=== PATIENT | female | born 1955 | race African-American/Black ===

== ENCOUNTER 2016-12-30 07:20 | Inpatient (IN) | payer MEDICAID ==
[~2016-12-30] VITALS: Ht 172.7 cm; Wt 127.0 kg
[~2016-12-30 07:20] MED LIST: ALBU18; BRIM0.159 OP; DICL0.1S20; DORZ2SOL; Divalproex Sodium PO; KEP500T PO; LATA0.0015 OP; LEVA3NEB9 NEB; METH500T6 PO; OMEP20TA44 PO; PHE100C PO
[2016-12-30 08:29] LABS: Basophils # (auto) 0 uL; Basophils % (auto) 0.5 % (0.0-2.0); CONDITION Y; Eosinophils # (auto) 0.1 uL; Eosinophils % (auto) 1.3 % (0.0-7.0); Hematocrit 43.1 % (36.0-46.0); Hemoglobin 14.5 g/dL (12.2-16.2); Lymphocytes % (auto) 33.7 % (10.0-50.0); Mean Corpuscular Hgb Conc. 33.5 g/dL (32.0-36.0); Mean Corpuscular Volume 92.6 fL (80.0-100.0); Mean Platelet Volume 8.6 fL (7.4-10.4); Monocytes # (auto) 0.5 uL; Monocytes % (auto) 5.9 % (0.0-12.0); Neutrophils # (auto) 5.3 uL; Neutrophils % (auto) 58.6 % (37.0-80.0); Platelet Count (auto) 254 10^3/uL (140-450); Red Cell Distribution Width 14.1 % (11.6-16.0)
[2016-12-30] MEDS ORDERED: AMMONIA 0.33 ML INHALANT IN ONE (08:32)
[2016-12-30 08:51] LABS: Albumin 3.8 g/dL (3.4-5.0); Anion Gap 8 (5-15); Aspartate Aminotransferase 11 U/L (15-37); BUN/Creatinine Ratio 19.5; Blood Urea Nitrogen 17 mg/dL (7-18); Calcium 8.8 mg/dL (8.5-10.1); Carbon Dioxide 24 mmol/L (21-32); Chloride 107 mmol/L (98-107); GFR African American 85 mL/min; GFR Non-African American 70 mL/min; Glucose 98 mg/dL (74-106); Potassium 3.9 mmol/L (3.5-5.1); Sodium 139 mmol/L (136-145)
[2016-12-30 08:56] LABS: Alkaline Phosphatase 127 U/L (45-117); Bilirubin, Total 0.9 mg/dL (0.2-1.0); Total Protein 8.3 g/dL (6.4-8.2)
[2016-12-30 13:06] LABS: Urine Bilirubin Negative (Negative); Urine Blood Negative /uL (Negative); Urine Color Yellow (Yellow); Urine Glucose Normal (Normal); Urine Ketone Negative (Negative); Urine Mucus FEW (None Seen); Urine Nitrite Negative (Negative); Urine RBC <1 /hpf (0 - 4); Urine Squamous Epithelial Cell FEW /hpf (<5); Urine Urobilinogen Normal (Negative); Urine pH 5.5 (5.0-8.0)
[2016-12-30] MEDS ORDERED: MORPHINE SULFATE 4 MG/ML SYRG IV ONE (13:15)
[2016-12-30] MEDS ORDERED: ONDANSETRON HCL 4 MG/2 ML VIAL IV ONE (13:15)
[2016-12-30] MEDS ORDERED: ASPirin 81 mg TAB PO ONE ×2 (13:15→13:45)
[2016-12-30] MEDS ORDERED: SODIUM CHLORIDE 0.9% 1,000 ML IV ONE (13:15)
[2016-12-30] MEDS ORDERED: MORPHINE SULF INJ 2 MG/ML SYRINGE 1ML IV PRN (13:45)
[2016-12-30] MEDS ORDERED: LACTULOSE 20Gm/30ML SOLN PO PRN (13:45)
[2016-12-30] MEDS ORDERED: ALBUTEROL SULF 2.5 MG/0.5ML(0.5%) NEB SOLN NEB PRN (13:45)
[2016-12-30] MEDS ORDERED: NITROGLYCERIN 0.4 MG SL TAB SL PRN (13:45)
[2016-12-30] MEDS ORDERED: ENOXAPARIN SOD 40 MG/0.4 ML SYRINGE SC ONE (13:45)
[2016-12-30 14:37] LABS: Cholesterol 206 mg/dL (< 200); HDL Cholesterol 53 mg/dL (40-59); LDL Cholesterol 131 mg/dL (< 100); Triglycerides 103 mg/dL (< 150)
[2016-12-30 14:44] LABS: Temperature: 24.6 C (20.0-25.0)
[2016-12-30] MEDS ORDERED: DEXTROSE (50%) 50ML SYRG IV PRN (14:45)
[2016-12-30] MEDS ORDERED: TEMAZEPAM 15 MG CAP PO PRN (14:45)
[2016-12-30] MEDS ORDERED: ACETAMINOPHEN 500 MG TAB PO PRN (14:45)
[2016-12-30] MEDS: LORazepam 2MG/ML-1ML VIAL IV PRN (14:56)
[2016-12-30] MEDS ORDERED: HYDROmorphone HCL 2 MG/ML VL IV ONE (15:00)
[2016-12-30] MEDS: InsuLIN REG 1unit/0.01ml Soln (100units/ml) SC SCH ×2 (16:34→21:57)
[2016-12-30] MEDS: ACCU-CHEK COMFORT CURVE STRIP VI SCH ×2 (16:34→21:56)
[2016-12-30] MEDS: IPRATROPIUM BROM 0.5 MG/2.5ML INH SOL NEB SCH (18:35)
[2016-12-30] MEDS: ALBUTEROL SULF 2.5 MG/0.5ML(0.5%) NEB SOLN NEB SCH (18:35)
[2016-12-30] MEDS ORDERED: PHENYTOIN IV DILANTIN 1,000 MG in SODIUM CHL 0.9% 250 ML IV ONE (20:00)
[2016-12-30] MEDS: HYDROmorphone HCL 2 MG/ML VL IV PRN (20:21)
[2016-12-30] MEDS: PROMETHAZINE HCL 25 MG/ML 1ML IV PRN (20:22)
[2016-12-30 20:47] VITALS: BP 137/92
[2016-12-30 22:00] VITALS: BP 135/77
[2016-12-30] MEDS ORDERED: PHENYTOIN SODIUM 100 MG CAP PO SCH (22:00)
[2016-12-30] MEDS ORDERED: ATORVASTATIN 20 MG TAB PO SCH (22:00)
[2016-12-30] MEDS: LEVETIRACETAM 500 MG TAB PO SCH (22:19)
[2016-12-30] MEDS: PHENYTOIN SODIUM 100 MG CAP PO SCH (22:19)
[2016-12-30] MEDS: ATORVASTATIN 20 MG TAB PO SCH (22:19)
[2016-12-31] VITALS (8 sets, daily range): BP systolic 95–127; BP diastolic 53–74
[2016-12-31] MEDS: MORPHINE SULFATE 4 MG/ML SYRG IV PRN ×3 (02:31→22:17)
[2016-12-31] MEDS: ALBUTEROL SULF 2.5 MG/0.5ML(0.5%) NEB SOLN NEB SCH ×4 (02:42→19:15)
[2016-12-31] MEDS: ACCU-CHEK COMFORT CURVE STRIP VI SCH ×4 (06:50→21:54)
[2016-12-31] MEDS: InsuLIN REG 1unit/0.01ml Soln (100units/ml) SC SCH ×4 (06:50→21:58)
[2016-12-31] MEDS: IPRATROPIUM BROM 0.5 MG/2.5ML INH SOL NEB SCH ×4 (07:01→19:15)
[2016-12-31 07:13] LABS: Basophils # (auto) 0 uL; Basophils % (auto) 0.4 % (0.0-2.0); CONDITION Y; Eosinophils # (auto) 0.1 uL; Eosinophils % (auto) 1.6 % (0.0-7.0); Hematocrit 38.3 % (36.0-46.0); Hemoglobin 12.9 g/dL (12.2-16.2); Lymphocytes # (auto) 2.6 uL; Lymphocytes % (auto) 35.7 % (10.0-50.0); Mean Corpuscular Hemoglobin 31.2 pg (28.0-32.0); Mean Corpuscular Hgb Conc. 33.6 g/dL (32.0-36.0); Mean Corpuscular Volume 92.9 fL (80.0-100.0); Mean Platelet Volume 8.4 fL (7.4-10.4); Monocytes # (auto) 0.6 uL; Monocytes % (auto) 7.8 % (0.0-12.0); Neutrophils % (auto) 54.5 % (37.0-80.0); Platelet Count (auto) 236 10^3/uL (140-450); Red Cell Distribution Width 14.2 % (11.6-16.0); White Blood Cell 7.4 10^3/uL (4.4-10.8)
[2016-12-31 07:36] LABS: Albumin 3.2 g/dL (3.4-5.0); BUN/Creatinine Ratio 20.5; Bilirubin, Total 0.4 mg/dL (0.2-1.0); Calcium 8.6 mg/dL (8.5-10.1); Potassium 3.9 mmol/L (3.5-5.1); Total Protein 6.9 g/dL (6.4-8.2)
[2016-12-31] MEDS: HYDROmorphone HCL 2 MG/ML VL IV PRN (07:40)
[2016-12-31] MEDS: ENOXAPARIN SOD 40 MG/0.4 ML SYRINGE SC SCH (09:56)
[2016-12-31] MEDS: ASPirin 81 mg TAB PO SCH (09:56)
[2016-12-31] MEDS: PHENYTOIN SODIUM 100 MG CAP PO SCH ×2 (09:56→21:53)
[2016-12-31] MEDS: LEVETIRACETAM 500 MG TAB PO SCH ×2 (09:56→21:51)
[2016-12-31] MEDS: LORazepam 0.5 MG TAB PO PRN (09:57)
[2016-12-31] MEDS: LORazepam 2MG/ML-1ML VIAL IV PRN ×2 (11:03→14:36)
[2016-12-31] MEDS ORDERED: DIVA500T53 PO (13:30)
[2016-12-31] MEDS ORDERED: LORazepam 2MG/ML-1ML VIAL IV ONE (13:30)
[2016-12-31] MEDS ORDERED: GABA-497 PO (13:30)
[2016-12-31] MEDS ORDERED: HYDR-4663 PO (13:30)
[2016-12-31] MEDS: HYDROcodone-ACET 5/325MG TAB PO PRN (14:12)
[2016-12-31] MEDS: CITALOPRAM HYDROBR 20 MG TAB PO SCH (16:19)
[2016-12-31] MEDS: GABAPENTIN 300 MG CAP PO SCH (21:51)
[2016-12-31] MEDS: ATORVASTATIN 20 MG TAB PO SCH (21:52)
[2016-12-31] MEDS: PROMETHAZINE HCL 25 MG/ML 1ML IV PRN (22:32)
[2017-01-01] VITALS (7 sets, daily range): BP systolic 90–140; BP diastolic 44–82
[2017-01-01] MEDS: ALBUTEROL SULF 2.5 MG/0.5ML(0.5%) NEB SOLN NEB SCH ×4 (00:23→19:43)
[2017-01-01] MEDS: IPRATROPIUM BROM 0.5 MG/2.5ML INH SOL NEB SCH ×4 (00:23→19:43)
[2017-01-01] MEDS: LORazepam 2MG/ML-1ML VIAL IV PRN ×2 (06:30→15:38)
[2017-01-01] MEDS: InsuLIN REG 1unit/0.01ml Soln (100units/ml) SC SCH ×4 (07:00→21:38)
[2017-01-01] MEDS: ACCU-CHEK COMFORT CURVE STRIP VI SCH ×4 (07:24→21:29)
[2017-01-01] MEDS: MORPHINE SULFATE 4 MG/ML SYRG IV PRN ×2 (09:30→20:25)
[2017-01-01] MEDS: ASPirin 81 mg TAB PO SCH (09:34)
[2017-01-01] MEDS: LEVETIRACETAM 500 MG TAB PO SCH ×2 (09:35→21:28)
[2017-01-01] MEDS: GABAPENTIN 300 MG CAP PO SCH ×2 (09:35→21:28)
[2017-01-01] MEDS: ENOXAPARIN SOD 40 MG/0.4 ML SYRINGE SC SCH (09:35)
[2017-01-01] MEDS: PHENYTOIN SODIUM 100 MG CAP PO SCH ×2 (09:35→21:28)
[2017-01-01] MEDS: CITALOPRAM HYDROBR 20 MG TAB PO SCH (09:35)
[2017-01-01] MEDS: HYDROmorphone HCL 2 MG/ML VL IV PRN (12:23)
[2017-01-01] MEDS: methylPREDNISolone SOD SUCC 40 MG/ML VL IV SCH (21:28)
[2017-01-01] MEDS: ATORVASTATIN 20 MG TAB PO SCH (21:28)
[2017-01-02] MEDS: IPRATROPIUM BROM 0.5 MG/2.5ML INH SOL NEB SCH ×4 (01:03→19:18)
[2017-01-02] MEDS: ALBUTEROL SULF 2.5 MG/0.5ML(0.5%) NEB SOLN NEB SCH ×5 (01:03→19:18)
[2017-01-02] MEDS: MORPHINE SULFATE 4 MG/ML SYRG IV PRN ×2 (01:32→16:25)
[2017-01-02] MEDS: LORazepam 0.5 MG TAB PO PRN (03:41)
[2017-01-02] MEDS: HYDROmorphone HCL 2 MG/ML VL IV PRN ×2 (03:43→20:29)
[2017-01-02] MEDS: LORazepam 2MG/ML-1ML VIAL IV PRN ×2 (04:11→08:07)
[2017-01-02 05:28] VITALS: BP 131/66
[2017-01-02] MEDS: methylPREDNISolone SOD SUCC 40 MG/ML VL IV SCH ×3 (05:50→22:00)
[2017-01-02] MEDS: ACCU-CHEK COMFORT CURVE STRIP VI SCH ×4 (05:50→22:31)
[2017-01-02] MEDS: InsuLIN REG 1unit/0.01ml Soln (100units/ml) SC SCH ×4 (06:00→22:30)
[2017-01-02] MEDS: HYDROcodone-ACET 5/325MG TAB PO PRN (08:22)
[2017-01-02 09:00] VITALS: BP 134/64
[2017-01-02] MEDS: ENOXAPARIN SOD 40 MG/0.4 ML SYRINGE SC SCH (09:59)
[2017-01-02] MEDS: CITALOPRAM HYDROBR 20 MG TAB PO SCH (10:01)
[2017-01-02] MEDS: ASPirin 81 mg TAB PO SCH (10:01)
[2017-01-02] MEDS: GABAPENTIN 300 MG CAP PO SCH ×2 (10:01→22:19)
[2017-01-02] MEDS: LEVETIRACETAM 500 MG TAB PO SCH ×2 (10:04→22:19)
[2017-01-02] MEDS: PHENYTOIN SODIUM 100 MG CAP PO SCH ×2 (10:04→22:19)
[2017-01-02 13:00] VITALS: BP 128/78
[2017-01-02 17:00] VITALS: BP 142/87
[2017-01-02 20:00] VITALS: BP 146/85
[2017-01-02 21:25] VITALS: BP 146/85
[2017-01-02] MEDS: ATORVASTATIN 20 MG TAB PO SCH (22:26)
[2017-01-03] VITALS (7 sets, daily range): BP systolic 115–172; BP diastolic 63–88
[2017-01-03] MEDS: IPRATROPIUM BROM 0.5 MG/2.5ML INH SOL NEB SCH ×4 (05:44→19:27)
[2017-01-03] MEDS: ALBUTEROL SULF 2.5 MG/0.5ML(0.5%) NEB SOLN NEB SCH ×4 (05:44→19:27)
[2017-01-03] MEDS: methylPREDNISolone SOD SUCC 40 MG/ML VL IV SCH (06:00)
[2017-01-03] MEDS: ACCU-CHEK COMFORT CURVE STRIP VI SCH ×3 (06:48→17:00)
[2017-01-03] MEDS: InsuLIN REG 1unit/0.01ml Soln (100units/ml) SC SCH ×3 (06:49→17:00)
[2017-01-03 06:51] LABS: BUN/Creatinine Ratio 25.4; Calcium 8.7 mg/dL (8.5-10.1); Potassium 3.9 mmol/L (3.5-5.1)
[2017-01-03] MEDS: HYDROmorphone HCL 2 MG/ML VL IV PRN ×3 (06:59→18:38)
[2017-01-03] MEDS ORDERED: LORazepam 2MG/ML-1ML VIAL IV ONE (08:15)
[2017-01-03] MEDS: ASPirin 81 mg TAB PO SCH (10:01)
[2017-01-03] MEDS: ENOXAPARIN SOD 40 MG/0.4 ML SYRINGE SC SCH (10:01)
[2017-01-03] MEDS: CITALOPRAM HYDROBR 20 MG TAB PO SCH (10:01)
[2017-01-03] MEDS: GABAPENTIN 300 MG CAP PO SCH (10:05)
[2017-01-03] MEDS: PHENYTOIN SODIUM 100 MG CAP PO SCH (10:06)
[2017-01-03] MEDS: LEVETIRACETAM 500 MG TAB PO SCH (10:06)
[2017-01-03] MEDS: HYDROcodone-ACET 5/325MG TAB PO PRN (10:07)
[2017-01-03] MEDS ORDERED: PRE5T PO (12:22)
[2017-01-03] MEDS ORDERED: PHE100C PO (12:22)
[2017-01-03] MEDS ORDERED: TRAM50TA2 PO (12:53)
[2017-01-03 19:29] LABS: Urine Bilirubin Negative (Negative); Urine Blood TRACE /uL (Negative); Urine Color Yellow (Yellow); Urine Glucose Normal (Normal); Urine Ketone Negative (Negative); Urine Mucus MODERATE (None Seen); Urine RBC 2 /hpf (0 - 4); Urine Urobilinogen Normal (Negative)
[2017-01-03 19:31] LABS: Urine Nitrite POSITIVE (Negative)
[2017-01-03] MEDS ORDERED: LEVO750T2 PO (20:40)
== END 2017-01-03 21:35 | disposition home or self-care (01) | DRG 45 ==
LOC: ER 07:21 → TELE 07:22 → TELE-EAST 21:30
PROVIDERS: ADMIT Nurse Practitioner Family; ATTEND Nurse Practitioner Acute Care
DX: I63.9 Cerebral infarction, unspecified (principal); J96.10 Chronic respiratory failure, unspecified whether with hypoxia or hypercapnia; I50.9 Heart failure, unspecified; K57.92 Diverticulitis of intestine, part unspecified, without perforation or abscess without bleeding; N39.0 Urinary tract infection, site not specified; Z68.41 Body mass index [BMI] 40.0-44.9, adult; E66.01 Morbid (severe) obesity due to excess calories; R07.89 Other chest pain; G40.409 Other generalized epilepsy and epileptic syndromes, not intractable, without status epilepticus; I15.9 Secondary hypertension, unspecified; F32.9 Major depressive disorder, single episode, unspecified; J44.9 Chronic obstructive pulmonary disease, unspecified; E78.5 Hyperlipidemia, unspecified; F41.9 Anxiety disorder, unspecified; H40.9 Unspecified glaucoma; E11.9 Type 2 diabetes mellitus without complications; K58.9 Irritable bowel syndrome, unspecified; F17.210 Nicotine dependence, cigarettes, uncomplicated; W19.XXXA Unspecified fall, initial encounter; Y92.238 Other place in hospital as the place of occurrence of the external cause; D35.02 Benign neoplasm of left adrenal gland; F40.240 Claustrophobia; H54.0 Blindness, both eyes; M06.9 Rheumatoid arthritis, unspecified; I25.2 Old myocardial infarction; Z79.82 Long term (current) use of aspirin; Z79.899 Other long term (current) drug therapy; Z80.1 Family history of malignant neoplasm of trachea, bronchus and lung; Z85.038 Personal history of other malignant neoplasm of large intestine; Z85.42 Personal history of malignant neoplasm of other parts of uterus; Z93.3 Colostomy status; Z80.9 Family history of malignant neoplasm, unspecified; Z90.49 Acquired absence of other specified parts of digestive tract; Z90.89 Acquired absence of other organs; Z90.710 Acquired absence of both cervix and uterus; Z88.0 Allergy status to penicillin; Z88.8 Allergy status to other drugs, medicaments and biological substances
CPT/HCPCS: 36415; 70450; 70551; 71020; 74176; 80048; 80053; 80061; 80185; 81001; 82542; 82550; 82607; 82746; 82962; 83036; 83735; 84443; 84484; 85025; 85379; 85652; 87086; 87088; 87186; 93005; 93306; 93886; 94640; 96372; 96374; 96375; 99291; J1815; J2405

== ENCOUNTER 2017-08-17 13:28 | Emergency (ER) | payer MEDICAID ==
[~2017-08-17] VITALS: Ht 172.7 cm; Wt 106.6 kg
[~2017-08-17 13:28] MED LIST changes: +DIVA500T53 PO; -Divalproex Sodium PO; +HYDR-4683 PO; +LEVO750T2 PO; +PRE5T PO; +TRAM50TA2 PO
[2017-08-17 14:30] LABS: Basophils # (auto) 0 uL; Basophils % (auto) 0.4 % (0.0-2.0); Eosinophils # (auto) 0.1 uL; Eosinophils % (auto) 1.4 % (0.0-7.0); Hematocrit 42.9 % (36.0-46.0); Hemoglobin 14.4 g/dL (12.2-16.2); Lymphocytes # (auto) 3.5 uL; Lymphocytes % (auto) 42.7 % (10.0-50.0); Mean Corpuscular Hemoglobin 31.4 pg (28.0-32.0); Mean Corpuscular Hgb Conc. 33.5 g/dL (32.0-36.0); Mean Corpuscular Volume 93.6 fL (80.0-100.0); Monocytes # (auto) 0.5 uL; Monocytes % (auto) 6.3 % (0.0-12.0); Neutrophils % (auto) 49.2 % (37.0-80.0); Nucleated Red Blood Cells % 0.1 %; Platelet Count (auto) 240 10^3/uL (140-450); Red Blood Cells 4.58 10^6/uL (4.0-5.20); Red Cell Distribution Width 13.9 % (11.8-14.3); White Blood Cell 8.1 10^3/uL (4.4-10.8)
[2017-08-17 14:42] LABS: Urine Bacteria FEW /hpf (None Seen); Urine Blood Negative /uL (Negative); Urine Specific Gravity 1.018 (1.001-1.035); Urine WBC 1 /hpf (0 - 5)
[2017-08-17 14:47] LABS: Alanine Aminotransferase 14 U/L (13-56); Albumin 3.9 g/dL (3.4-5.0); Alkaline Phosphatase 109 U/L (45-117); Anion Gap 9 (5-15); Aspartate Aminotransferase 12 U/L (15-37); BUN/Creatinine Ratio 17.5; Bilirubin, Total 0.6 mg/dL (0.2-1.0); Blood Urea Nitrogen 14 mg/dL (7-18); Calcium 8.9 mg/dL (8.5-10.1); Carbon Dioxide 23 mmol/L (21-32); Chloride 107 mmol/L (98-107); GFR African American 93 mL/min; GFR Non-African American 77 mL/min; Glucose 132 mg/dL (74-106); Magnesium 2.3 mg/dL (1.6-2.6); Potassium 3.6 mmol/L (3.5-5.1); Sodium 139 mmol/L (136-145); Total Protein 8.2 g/dL (6.4-8.2)
[2017-08-17] MEDS ORDERED: MORPHINE SULFATE 4 MG/ML SYR/VIAL IV ONE (19:45)
[2017-08-17] MEDS ORDERED: ONDANSETRON HCL 4 MG/2 ML VIAL IV ONE (19:45)
[2017-08-17] MEDS ORDERED: SODIUM CHLORIDE 0.9% 250 ML IV ONE (19:45)
[2017-08-17 21:40] VITALS: BP 109/68
[2017-08-17 22:34] LABS: Alcohol, Urine < 3.0 mg/dL (0-5); Amphetamine Screen, Urine NEGATIVE (NEGATIVE); Barbiturate Scree,Urine NEGATIVE (NEGATIVE); Benzodiazephine Screen, Urine NEGATIVE (NEGATIVE); Cannabinoid Screen, Urine NEGATIVE (NEGATIVE); Cocaine Screen, Urine NEGATIVE (NEGATIVE); Opiate Scree,Urine POSITIVE (NEGATIVE); Phencyclidine Screen, Urine NEGATIVE (NEGATIVE)
== END 2017-08-17 21:51 | disposition home or self-care (01) ==
LOC: ER 13:28
DX: K57.30 Diverticulosis of large intestine without perforation or abscess without bleeding (principal); K29.00 Acute gastritis without bleeding; J44.9 Chronic obstructive pulmonary disease, unspecified; I10 Essential (primary) hypertension; E11.9 Type 2 diabetes mellitus without complications; I25.2 Old myocardial infarction; F17.210 Nicotine dependence, cigarettes, uncomplicated; Z90.710 Acquired absence of both cervix and uterus; Z90.49 Acquired absence of other specified parts of digestive tract; Z79.899 Other long term (current) drug therapy; Z88.8 Allergy status to other drugs, medicaments and biological substances; Z88.0 Allergy status to penicillin
CPT/HCPCS: 36415; 71046; 74176; 80053; 80307; 81001; 83690; 83735; 83880; 84484; 85025; 93005; 96361; 96374; 96375; 99285; J2270; J2405

== ENCOUNTER 2017-10-09 11:28 | Emergency (ER) | payer MEDICAID, OTHER ==
[~2017-10-09] VITALS: Ht 172.7 cm; Wt 113.9 kg
[2017-10-09] MEDS ORDERED: cloNIDine HCL 0.1 MG TAB PO ONE (12:30)
[2017-10-09] MEDS ORDERED: MORPHINE SULFATE 8mg/ml INJ SDV IV ONE (14:15)
[2017-10-09] MEDS ORDERED: ONDANSETRON HCL 4 MG/2 ML VIAL IV ONE (14:15)
[2017-10-09 14:23] VITALS: BP 116/73
== END 2017-10-09 13:43 | disposition short-term general hospital (02) ==
LOC: ER 11:28
DX: H54.8 Legal blindness, as defined in USA (principal); I16.0 Hypertensive urgency; I10 Essential (primary) hypertension; E11.9 Type 2 diabetes mellitus without complications; F17.210 Nicotine dependence, cigarettes, uncomplicated; J44.9 Chronic obstructive pulmonary disease, unspecified; R51 Headache; E78.5 Hyperlipidemia, unspecified; I25.2 Old myocardial infarction; Z86.73 Personal history of transient ischemic attack (TIA), and cerebral infarction without residual deficits; Z88.0 Allergy status to penicillin
CPT/HCPCS: 70450; 82962; 93005; 94761; 96374; 99285; J2270

== ENCOUNTER 2017-11-10 05:42 | Inpatient (IN) | payer MEDICAID, OTHER ==
[~2017-11-10] VITALS: Ht 172.7 cm; Wt 119.8 kg
[2017-11-10] MEDS ORDERED: ALBUTEROL SULF 2.5 MG/0.5ML(0.5%) NEB SOLN NEB ONE ×2 (06:00→07:00)
[2017-11-10] MEDS ORDERED: IPRATROPIUM BROM 0.5 MG/2.5ML INH SOL NEB ONE (06:00)
[2017-11-10] MEDS ORDERED: methylPREDNISolone SOD SUCC 125 MG/2 ML VL ONE (06:12)
[2017-11-10] MEDS ORDERED: methylPREDNISolone SOD SUCC 125 MG/2 ML VL IV ONE (06:15)
[2017-11-10 06:40] LABS: Basophils # (auto) 0.1 uL; Basophils % (auto) 0.8 % (0.0-2.0); Eosinophils # (auto) 0.2 uL; Eosinophils % (auto) 3.1 % (0.0-7.0); Hematocrit 43.8 % (36.0-46.0); Hemoglobin 14.9 g/dL (12.2-16.2); Lymphocytes # (auto) 2.5 uL; Lymphocytes % (auto) 34.2 % (10.0-50.0); Mean Corpuscular Hemoglobin 32.4 pg (28.0-32.0); Mean Corpuscular Volume 95.1 fL (80.0-100.0); Monocytes # (auto) 0.8 uL; Monocytes % (auto) 11.4 % (0.0-12.0); Neutrophils # (auto) 3.7 uL; Neutrophils % (auto) 50.5 % (37.0-80.0); Nucleated Red Blood Cells % 0.2 %; Platelet Count (auto) 229 10^3/uL (140-450); Red Cell Distribution Width 13.9 % (11.8-14.3); White Blood Cell 7.4 10^3/uL (4.4-10.8)
[2017-11-10 06:46] LABS: INR 0.9 (0.9-1.15); Prothrombin Time 9.7 sec (9.27-12.13)
[2017-11-10 06:51] LABS: Alanine Aminotransferase 19 U/L (13-56); Albumin 3.7 g/dL (3.4-5.0); Amylase 53 U/L (25-115); Anion Gap 11 (5-15); Aspartate Aminotransferase 10 U/L (15-37); BUN/Creatinine Ratio 23.6; Blood Urea Nitrogen 21 mg/dL (7-18); Calcium 9.2 mg/dL (8.5-10.1); Carbon Dioxide 23 mmol/L (21-32); Chloride 108 mmol/L (98-107); GFR African American 83 mL/min; GFR Non-African American 68 mL/min; Glucose 93 mg/dL (74-106); Lipase 113 U/L (73-393); Potassium 4.4 mmol/L (3.5-5.1); Sodium 142 mmol/L (136-145)
[2017-11-10 06:57] LABS: Alkaline Phosphatase 114 U/L (45-117); Bilirubin, Total 0.6 mg/dL (0.2-1.0); Total Protein 8.5 g/dL (6.4-8.2)
[2017-11-10] MEDS ORDERED: LORazepam 2MG/ML-1ML VIAL ONE ×2 (07:00→18:00)
[2017-11-10] MEDS ORDERED: PROMETHAZINE W/CODEINE 5 ML ORAL SYRUP PO ONE ×2 (07:00→08:15)
[2017-11-10] MEDS ORDERED: LORazepam 2MG/ML-1ML VIAL IV ONE (07:00)
[2017-11-10] MEDS ORDERED: PROMETHAZINE HCL 25 MG/ML 1ML IV ONE (09:30)
[2017-11-10] MEDS ORDERED: MORPHINE SULFATE 4 MG/ML SYR/VIAL IV ONE (09:30)
[2017-11-10] MEDS ORDERED: MORPHINE SULFATE INJECTION 1 ML ONE (09:31)
[2017-11-10] MEDS ORDERED: HYDROcodone-ACET 5/325MG TAB PO PRN (10:15)
[2017-11-10] MEDS ORDERED: DEXTROSE (50%) 50ML SYRG IV PRN (10:15)
[2017-11-10] MEDS ORDERED: ACETAMINOPHEN 500 MG TAB PO PRN (10:15)
[2017-11-10] MEDS ORDERED: MORPHINE SULFATE 8mg/ml INJ SDV IV PRN (10:15)
[2017-11-10] MEDS ORDERED: traMADol HCL 50 MG TAB PO PRN (10:15)
[2017-11-10] MEDS ORDERED: LACTULOSE 20Gm/30ML SOLN PO PRN (10:15)
[2017-11-10] MEDS ORDERED: ALBUTEROL SULF 2.5 MG/0.5ML(0.5%) NEB SOLN NEB PRN (10:15)
[2017-11-10 10:38] VITALS: BP 144/96
[2017-11-10] MEDS: InsuLIN REG 1unit/0.01ml Soln (100units/ml) SC SCH ×3 (11:30→22:53)
[2017-11-10] MEDS: METHOCARBAMOL 500 MG TAB PO SCH ×3 (12:00→21:10)
[2017-11-10] MEDS: ALBUTEROL SULF 2.5 MG/0.5ML(0.5%) NEB SOLN NEB SCH ×2 (12:15→18:42)
[2017-11-10] MEDS: IPRATROPIUM BROM 0.5 MG/2.5ML INH SOL NEB SCH ×2 (12:15→18:42)
[2017-11-10] MEDS ORDERED: IPRATROPIUM BROM 0.5 MG/2.5ML INH SOL ONE (12:15)
[2017-11-10] MEDS ORDERED: ALBUTEROL SULF 2.5 MG/0.5ML(0.5%) NEB SOLN ONE (12:15)
[2017-11-10] MEDS ORDERED: PHENYTOIN SODIUM 100 MG CAP PO SCH (12:54)
[2017-11-10] MEDS ORDERED: LEVETIRACETAM 500 MG TAB PO SCH (13:02)
[2017-11-10] MEDS ORDERED: PANTOPRAZOLE 40 MG TAB PO ONE (13:15)
[2017-11-10 13:20] VITALS: BP 151/84
[2017-11-10] MEDS: [UNRECOGNIZED DRUG - OTHER] OP SCH ×2 (14:00→22:00)
[2017-11-10] MEDS: DOXYCYCLINE 100MG/250ML 250 ML IV SCH (15:37)
[2017-11-10] MEDS: methylPREDNISolone SOD SUCC 40 MG/ML VL IV SCH ×3 (15:37→23:47)
[2017-11-10] MEDS: MORPHINE SULFATE 8mg/ml INJ SDV IV PRN ×2 (15:37→21:52)
[2017-11-10] MEDS: ENOXAPARIN SOD 40 MG/0.4 ML SYRINGE SC SCH (15:54)
[2017-11-10] MEDS: SODIUM CHLORIDE 0.9% 1,000 ML IV SCH ×2 (15:54→23:46)
[2017-11-10] MEDS: ACCU-CHEK COMFORT CURVE STRIP VI SCH ×3 (16:02→22:52)
[2017-11-10 17:22] VITALS: BP 148/83
[2017-11-10] MEDS: ACETYLCYSTEINE 10 %(100MG/ML) SOL 4ML NEB SCH (18:44)
[2017-11-10] MEDS: TEMAZEPAM 15 MG CAP PO PRN (21:09)
[2017-11-10] MEDS: ATORVASTATIN 20 MG TAB PO SCH (21:10)
[2017-11-10] MEDS: LEVETIRACETAM 500 MG TAB PO SCH (21:40)
[2017-11-10] MEDS: PROMETHAZINE W/CODEINE 5 ML ORAL SYRUP PO PRN (21:40)
[2017-11-10 22:00] VITALS: BP 143/78
[2017-11-10] MEDS ORDERED: LEVALBUTEROL HYDROCHLORIDE NEB SCH (22:00)
[2017-11-10] MEDS: LATANOPROST 0.005 % OPTH(EYE) SOL 2.5ML OP SCH (22:51)
[2017-11-11] MEDS: DOXYCYCLINE 100MG/250ML 250 ML IV SCH ×2 (01:07→13:59)
[2017-11-11] MEDS: IPRATROPIUM BROM 0.5 MG/2.5ML INH SOL NEB SCH ×4 (01:11→19:31)
[2017-11-11] MEDS: ALBUTEROL SULF 2.5 MG/0.5ML(0.5%) NEB SOLN NEB SCH ×4 (01:11→19:31)
[2017-11-11] MEDS: LORazepam 0.5 MG TAB PO PRN ×3 (01:28→23:19)
[2017-11-11] MEDS: MORPHINE SULFATE 8mg/ml INJ SDV IV PRN ×2 (02:23→06:33)
[2017-11-11 05:00] VITALS: BP 141/73
[2017-11-11] MEDS: METHOCARBAMOL 500 MG TAB PO SCH ×4 (05:46→22:41)
[2017-11-11] MEDS: methylPREDNISolone SOD SUCC 40 MG/ML VL IV SCH ×3 (05:46→18:08)
[2017-11-11] MEDS: [UNRECOGNIZED DRUG - OTHER] OP SCH ×3 (06:00→22:43)
[2017-11-11] MEDS: InsuLIN REG 1unit/0.01ml Soln (100units/ml) SC SCH ×4 (06:10→18:12)
[2017-11-11] MEDS: ACCU-CHEK COMFORT CURVE STRIP VI SCH ×4 (06:12→22:47)
[2017-11-11] MEDS: ACETYLCYSTEINE 10 %(100MG/ML) SOL 4ML NEB SCH ×3 (07:26→19:31)
[2017-11-11 08:49] VITALS: BP 154/80
[2017-11-11] MEDS: DORZOLAMIDE HCL 2% OPTH(EYE) SOL 10ML OP SCH (10:00)
[2017-11-11] MEDS ORDERED: DIVALPROEX SODIUM 500 MG PO SCH (10:00)
[2017-11-11] MEDS: PANTOPRAZOLE 40 MG TAB PO SCH (10:45)
[2017-11-11] MEDS: ENOXAPARIN SOD 40 MG/0.4 ML SYRINGE SC SCH (10:45)
[2017-11-11] MEDS: ASPirin-EC 81 mg tab PO SCH (10:46)
[2017-11-11] MEDS: LEVETIRACETAM 500 MG TAB PO SCH ×2 (10:46→22:41)
[2017-11-11] MEDS: SERTRALINE HCL 50 MG TAB PO SCH (10:46)
[2017-11-11] MEDS: SODIUM CHLORIDE 0.9% 1,000 ML IV SCH (12:44)
[2017-11-11 13:00] VITALS: BP 150/88
[2017-11-11] MEDS: LORazepam 2MG/ML-1ML VIAL IV PRN (14:01)
[2017-11-11] MEDS: PROMETHAZINE HCL 25 MG/ML 1ML IV PRN (14:28)
[2017-11-11 17:00] VITALS: BP 148/80
[2017-11-11 22:00] VITALS: BP 140/65
[2017-11-11] MEDS: BUDESONIDE (INHALATION) 0.5 MG/2 ML NEB NEB SCH (22:30)
[2017-11-11] MEDS: ATORVASTATIN 20 MG TAB PO SCH (22:42)
[2017-11-11] MEDS: LATANOPROST 0.005 % OPTH(EYE) SOL 2.5ML OP SCH (22:50)
[2017-11-11] MEDS: PROMETHAZINE W/CODEINE 5 ML ORAL SYRUP PO PRN (23:22)
[2017-11-12] MEDS: methylPREDNISolone SOD SUCC 125 MG/2 ML VL IV SCH ×5 (01:08→23:44)
[2017-11-12] MEDS: DOXYCYCLINE 100MG/250ML 250 ML IV SCH ×2 (01:08→13:05)
[2017-11-12] MEDS: ALBUTEROL SULF 2.5 MG/0.5ML(0.5%) NEB SOLN NEB SCH ×4 (01:38→19:16)
[2017-11-12] MEDS: ACETYLCYSTEINE 10 %(100MG/ML) SOL 4ML NEB SCH ×4 (01:38→19:16)
[2017-11-12] MEDS: IPRATROPIUM BROM 0.5 MG/2.5ML INH SOL NEB SCH ×4 (01:38→19:16)
[2017-11-12] MEDS: SODIUM CHLORIDE 0.9% 1,000 ML IV SCH ×2 (03:40→15:24)
[2017-11-12 05:00] VITALS: BP 138/70
[2017-11-12] MEDS ORDERED: ALBUTEROL SULF 2.5 MG/0.5ML(0.5%) NEB SOLN NEB ONE (06:15)
[2017-11-12] MEDS ORDERED: LEVETIRACETAM INJ 500 MG in D5W 5% 100 ML IV ONE (06:15)
[2017-11-12] MEDS ORDERED: IPRATROPIUM BROM 0.5 MG/2.5ML INH SOL NEB ONE (06:15)
[2017-11-12] MEDS: ACCU-CHEK COMFORT CURVE STRIP VI SCH ×4 (06:35→21:26)
[2017-11-12] MEDS: InsuLIN REG 1unit/0.01ml Soln (100units/ml) SC SCH ×6 (06:36→21:26)
[2017-11-12] MEDS: METHOCARBAMOL 500 MG TAB PO SCH ×3 (06:39→21:20)
[2017-11-12] MEDS: BUDESONIDE (INHALATION) 0.5 MG/2 ML NEB NEB SCH ×2 (06:40→19:16)
[2017-11-12] MEDS ORDERED: HYDROcodone-ACET 5/325MG TAB ONE (06:42)
[2017-11-12] MEDS: [UNRECOGNIZED DRUG - OTHER] OP SCH ×3 (06:47→21:22)
[2017-11-12 08:49] VITALS: BP 147/69
[2017-11-12] MEDS: DORZOLAMIDE HCL 2% OPTH(EYE) SOL 10ML OP SCH (10:00)
[2017-11-12] MEDS: ENOXAPARIN SOD 40 MG/0.4 ML SYRINGE SC SCH (11:17)
[2017-11-12] MEDS: PANTOPRAZOLE 40 MG TAB PO SCH (11:17)
[2017-11-12] MEDS: ASPirin-EC 81 mg tab PO SCH (11:17)
[2017-11-12] MEDS: LEVETIRACETAM 500 MG TAB PO SCH ×2 (11:18→21:19)
[2017-11-12] MEDS: SERTRALINE HCL 50 MG TAB PO SCH (11:18)
[2017-11-12] MEDS: MORPHINE SULFATE 8mg/ml INJ SDV IV PRN ×2 (11:31→23:48)
[2017-11-12] MEDS: PROMETHAZINE W/CODEINE 5 ML ORAL SYRUP PO PRN (11:31)
[2017-11-12] MEDS: LORazepam 0.5 MG TAB PO PRN (12:45)
[2017-11-12 13:00] VITALS: BP 147/78
[2017-11-12 17:00] VITALS: BP 148/80
[2017-11-12] MEDS: ATORVASTATIN 20 MG TAB PO SCH (21:19)
[2017-11-12] MEDS: LEVOFLOXACIN 750MG 150 ML IV SCH (21:19)
[2017-11-12] MEDS: LATANOPROST 0.005 % OPTH(EYE) SOL 2.5ML OP SCH (21:22)
[2017-11-12 22:00] VITALS: BP 142/75
[2017-11-13] MEDS: ACETYLCYSTEINE 10 %(100MG/ML) SOL 4ML NEB SCH ×2 (01:09→05:52)
[2017-11-13] MEDS: IPRATROPIUM BROM 0.5 MG/2.5ML INH SOL NEB SCH ×5 (01:09→18:00)
[2017-11-13] MEDS: ALBUTEROL SULF 2.5 MG/0.5ML(0.5%) NEB SOLN NEB SCH ×5 (01:09→18:00)
[2017-11-13] MEDS: PROMETHAZINE W/CODEINE 5 ML ORAL SYRUP PO PRN ×2 (03:59→11:14)
[2017-11-13] MEDS: SODIUM CHLORIDE 0.9% 1,000 ML IV SCH ×2 (04:01→18:37)
[2017-11-13] MEDS: LORazepam 0.5 MG TAB PO PRN (04:20)
[2017-11-13 05:00] VITALS: BP 149/83
[2017-11-13] MEDS: METHOCARBAMOL 500 MG TAB PO SCH ×2 (06:24→11:58)
[2017-11-13] MEDS: methylPREDNISolone SOD SUCC 125 MG/2 ML VL IV SCH ×4 (06:24→23:55)
[2017-11-13] MEDS: [UNRECOGNIZED DRUG - OTHER] OP SCH ×3 (06:24→22:05)
[2017-11-13] MEDS: ACCU-CHEK COMFORT CURVE STRIP VI SCH ×4 (06:25→22:05)
[2017-11-13] MEDS: InsuLIN REG 1unit/0.01ml Soln (100units/ml) SC SCH ×4 (06:27→22:08)
[2017-11-13 08:14] VITALS: BP 125/70
[2017-11-13] MEDS: PROMETHAZINE HCL 25 MG/ML 1ML IV PRN (08:18)
[2017-11-13 09:22] VITALS: BP 125/70
[2017-11-13] MEDS: BUDESONIDE (INHALATION) 0.5 MG/2 ML NEB NEB SCH ×2 (10:27→20:46)
[2017-11-13] MEDS: LEVETIRACETAM 500 MG TAB PO SCH ×2 (11:05→22:05)
[2017-11-13] MEDS: PANTOPRAZOLE 40 MG TAB PO SCH (11:05)
[2017-11-13] MEDS: SERTRALINE HCL 50 MG TAB PO SCH (11:05)
[2017-11-13] MEDS: DORZOLAMIDE HCL 2% OPTH(EYE) SOL 10ML OP SCH (11:06)
[2017-11-13] MEDS: ENOXAPARIN SOD 40 MG/0.4 ML SYRINGE SC SCH (11:06)
[2017-11-13] MEDS: ASPirin-EC 81 mg tab PO SCH (11:06)
[2017-11-13] MEDS: MORPHINE SULFATE 8mg/ml INJ SDV IV PRN ×2 (12:23→23:17)
[2017-11-13 13:00] VITALS: BP 127/60
[2017-11-13 17:10] VITALS: BP 163/70
[2017-11-13] MEDS: LORazepam 2MG/ML-1ML VIAL IV PRN (17:46)
[2017-11-13 19:13] LABS: BUN/Creatinine Ratio 29.2; Calcium 8.5 mg/dL (8.5-10.1); Potassium 4.2 mmol/L (3.5-5.1)
[2017-11-13] MEDS: LEVOFLOXACIN 750MG 150 ML IV SCH (21:25)
[2017-11-13 22:00] VITALS: BP 121/70
[2017-11-13] MEDS: ATORVASTATIN 20 MG TAB PO SCH (22:04)
[2017-11-13] MEDS: LATANOPROST 0.005 % OPTH(EYE) SOL 2.5ML OP SCH (22:06)
[2017-11-14] MEDS: NITROGLYCERIN 0.4 MG SL TAB SL PRN ×2 (03:20→03:30)
[2017-11-14 05:00] VITALS: BP 139/65
[2017-11-14 05:59] VITALS: BP 163/80
[2017-11-14] MEDS: ALBUTEROL SULF 2.5 MG/0.5ML(0.5%) NEB SOLN NEB SCH ×5 (06:24→23:03)
[2017-11-14] MEDS: IPRATROPIUM BROM 0.5 MG/2.5ML INH SOL NEB SCH ×4 (06:24→19:33)
[2017-11-14] MEDS: methylPREDNISolone SOD SUCC 125 MG/2 ML VL IV SCH ×3 (06:27→18:04)
[2017-11-14] MEDS: [UNRECOGNIZED DRUG - OTHER] OP SCH ×3 (06:27→22:00)
[2017-11-14] MEDS: InsuLIN REG 1unit/0.01ml Soln (100units/ml) SC SCH ×4 (06:35→23:21)
[2017-11-14] MEDS: ACCU-CHEK COMFORT CURVE STRIP VI SCH ×4 (06:35→23:21)
[2017-11-14] MEDS: SODIUM CHLORIDE 0.9% 1,000 ML IV SCH ×2 (07:24→20:44)
[2017-11-14 09:00] VITALS: BP 165/73
[2017-11-14] MEDS: BUDESONIDE (INHALATION) 0.5 MG/2 ML NEB NEB SCH ×2 (10:03→19:33)
[2017-11-14] MEDS: LEVETIRACETAM 500 MG TAB PO SCH ×2 (11:10→23:05)
[2017-11-14] MEDS: PANTOPRAZOLE 40 MG TAB PO SCH (11:10)
[2017-11-14] MEDS: ASPirin-EC 81 mg tab PO SCH (11:10)
[2017-11-14] MEDS: ENOXAPARIN SOD 40 MG/0.4 ML SYRINGE SC SCH (11:11)
[2017-11-14] MEDS: SERTRALINE HCL 50 MG TAB PO SCH (11:11)
[2017-11-14 13:00] VITALS: BP 153/86
[2017-11-14] MEDS: DORZOLAMIDE HCL 2% OPTH(EYE) SOL 10ML OP SCH (13:34)
[2017-11-14] MEDS: MORPHINE SULFATE 8mg/ml INJ SDV IV PRN ×3 (13:35→23:34)
[2017-11-14 17:00] VITALS: BP 147/75
[2017-11-14] MEDS ORDERED: ARTIFICIAL TEARS 15ml EACHEYE PRN (18:15)
[2017-11-14 22:00] VITALS: BP 158/89
[2017-11-14] MEDS: LEVOFLOXACIN 750MG 150 ML IV SCH (23:05)
[2017-11-14] MEDS: ATORVASTATIN 20 MG TAB PO SCH (23:05)
[2017-11-14] MEDS: LATANOPROST 0.005 % OPTH(EYE) SOL 2.5ML OP SCH (23:09)
[2017-11-15] MEDS: methylPREDNISolone SOD SUCC 125 MG/2 ML VL IV SCH ×4 (00:26→18:18)
[2017-11-15] MEDS: MORPHINE SULFATE 8mg/ml INJ SDV IV PRN ×2 (04:26→08:30)
[2017-11-15 05:00] VITALS: BP 165/93
[2017-11-15] MEDS: ALBUTEROL SULF 2.5 MG/0.5ML(0.5%) NEB SOLN NEB SCH ×4 (05:22→18:00)
[2017-11-15] MEDS: IPRATROPIUM BROM 0.5 MG/2.5ML INH SOL NEB SCH ×4 (05:22→18:00)
[2017-11-15] MEDS: BUDESONIDE (INHALATION) 0.5 MG/2 ML NEB NEB SCH (05:23)
[2017-11-15] MEDS: [UNRECOGNIZED DRUG - OTHER] OP SCH ×3 (06:26→22:26)
[2017-11-15] MEDS: ACCU-CHEK COMFORT CURVE STRIP VI SCH ×4 (06:33→22:24)
[2017-11-15] MEDS: InsuLIN REG 1unit/0.01ml Soln (100units/ml) SC SCH ×4 (06:34→22:25)
[2017-11-15 09:00] VITALS: BP 149/69
[2017-11-15] MEDS: DORZOLAMIDE HCL 2% OPTH(EYE) SOL 10ML OP SCH (10:37)
[2017-11-15] MEDS: SERTRALINE HCL 50 MG TAB PO SCH (10:38)
[2017-11-15] MEDS: SODIUM CHLORIDE 0.9% 1,000 ML IV SCH ×2 (10:38→23:51)
[2017-11-15] MEDS: LEVETIRACETAM 500 MG TAB PO SCH ×2 (10:38→22:24)
[2017-11-15] MEDS: ASPirin-EC 81 mg tab PO SCH (10:38)
[2017-11-15] MEDS: PANTOPRAZOLE 40 MG TAB PO SCH (10:38)
[2017-11-15] MEDS: LORazepam 0.5 MG TAB PO PRN (12:01)
[2017-11-15 13:00] VITALS: BP 139/67
[2017-11-15 17:00] VITALS: BP 150/73
[2017-11-15] MEDS: PROMETHAZINE W/CODEINE 5 ML ORAL SYRUP PO PRN (19:22)
[2017-11-15 20:00] VITALS: BP 146/69
[2017-11-15 21:35] VITALS: BP 146/69
[2017-11-15] MEDS: LEVOFLOXACIN 750MG 150 ML IV SCH (22:23)
[2017-11-15] MEDS: ATORVASTATIN 20 MG TAB PO SCH (22:24)
[2017-11-15] MEDS: TEMAZEPAM 15 MG CAP PO PRN (22:25)
[2017-11-15] MEDS: LATANOPROST 0.005 % OPTH(EYE) SOL 2.5ML OP SCH (22:26)
[2017-11-16] VITALS (7 sets, daily range): BP systolic 136–159; BP diastolic 62–73
[2017-11-16] MEDS: methylPREDNISolone SOD SUCC 125 MG/2 ML VL IV SCH ×4 (00:04→17:53)
[2017-11-16] MEDS: MORPHINE SULFATE 8mg/ml INJ SDV IV PRN (05:54)
[2017-11-16] MEDS: [UNRECOGNIZED DRUG - OTHER] OP SCH ×3 (05:55→22:18)
[2017-11-16] MEDS: IPRATROPIUM BROM 0.5 MG/2.5ML INH SOL NEB SCH ×4 (06:38→19:29)
[2017-11-16] MEDS: ALBUTEROL SULF 2.5 MG/0.5ML(0.5%) NEB SOLN NEB SCH ×4 (06:38→19:29)
[2017-11-16] MEDS: ACCU-CHEK COMFORT CURVE STRIP VI SCH ×4 (06:44→22:18)
[2017-11-16] MEDS: InsuLIN REG 1unit/0.01ml Soln (100units/ml) SC SCH ×4 (06:44→22:19)
[2017-11-16] MEDS: LORazepam 0.5 MG TAB PO PRN ×2 (08:08→17:53)
[2017-11-16] MEDS: ASPirin-EC 81 mg tab PO SCH (09:19)
[2017-11-16] MEDS: PANTOPRAZOLE 40 MG TAB PO SCH (09:19)
[2017-11-16] MEDS: DORZOLAMIDE HCL 2% OPTH(EYE) SOL 10ML OP SCH (09:20)
[2017-11-16] MEDS: SERTRALINE HCL 50 MG TAB PO SCH (09:20)
[2017-11-16] MEDS: ENOXAPARIN SOD 60 MG/0.6 ML SYRINGE SC SCH (09:20)
[2017-11-16] MEDS: LEVETIRACETAM 500 MG TAB PO SCH ×2 (09:20→22:18)
[2017-11-16] MEDS: BUDESONIDE (INHALATION) 0.5 MG/2 ML NEB NEB SCH ×2 (10:36→19:29)
[2017-11-16] MEDS: SODIUM CHLORIDE 0.9% 1,000 ML IV SCH (12:44)
[2017-11-16] MEDS: LEVOFLOXACIN 750MG 150 ML IV SCH (20:48)
[2017-11-16] MEDS: ATORVASTATIN 20 MG TAB PO SCH (22:17)
[2017-11-16] MEDS: LATANOPROST 0.005 % OPTH(EYE) SOL 2.5ML OP SCH (22:18)
[2017-11-16] MEDS: TEMAZEPAM 15 MG CAP PO PRN (22:20)
[2017-11-17] MEDS: methylPREDNISolone SOD SUCC 125 MG/2 ML VL IV SCH ×2 (00:18→05:59)
[2017-11-17] MEDS: SODIUM CHLORIDE 0.9% 1,000 ML IV SCH ×2 (02:30→17:38)
[2017-11-17] MEDS: [UNRECOGNIZED DRUG - OTHER] OP SCH ×3 (05:59→22:28)
[2017-11-17] MEDS: IPRATROPIUM BROM 0.5 MG/2.5ML INH SOL NEB SCH ×4 (06:00→20:14)
[2017-11-17] MEDS: ALBUTEROL SULF 2.5 MG/0.5ML(0.5%) NEB SOLN NEB SCH ×4 (06:00→20:14)
[2017-11-17] MEDS: LORazepam 0.5 MG TAB PO PRN ×2 (06:19→18:37)
[2017-11-17] MEDS: InsuLIN REG 1unit/0.01ml Soln (100units/ml) SC SCH ×4 (06:32→22:00)
[2017-11-17] MEDS: ACCU-CHEK COMFORT CURVE STRIP VI SCH ×4 (06:32→22:27)
[2017-11-17 09:28] VITALS: BP 155/69
[2017-11-17] MEDS: SERTRALINE HCL 50 MG TAB PO SCH (09:50)
[2017-11-17] MEDS: PANTOPRAZOLE 40 MG TAB PO SCH (09:51)
[2017-11-17] MEDS: LEVETIRACETAM 500 MG TAB PO SCH ×2 (09:51→22:27)
[2017-11-17] MEDS: ASPirin-EC 81 mg tab PO SCH (09:51)
[2017-11-17] MEDS: DORZOLAMIDE HCL 2% OPTH(EYE) SOL 10ML OP SCH (09:51)
[2017-11-17] MEDS: ENOXAPARIN SOD 60 MG/0.6 ML SYRINGE SC SCH (09:51)
[2017-11-17] MEDS: MORPHINE SULFATE 10 MG/ML INJ 1ML SDV IV PRN ×2 (09:57→16:36)
[2017-11-17] MEDS ORDERED: MORPHINE SULFATE 10 MG/ML INJ 1ML SDV IV PRN (10:00)
[2017-11-17] MEDS: BUDESONIDE (INHALATION) 0.5 MG/2 ML NEB NEB SCH ×2 (10:19→20:14)
[2017-11-17] MEDS ORDERED: LIDOCAINE HCL 2 % INJ 2ML MPF NEB ONE (11:30)
[2017-11-17] MEDS ORDERED: MEPERIDINE HCL (25 MG/ML) 1ML VIAL IM ONE (11:30)
[2017-11-17 22:00] VITALS: BP 152/77
[2017-11-17] MEDS: ATORVASTATIN 20 MG TAB PO SCH (22:19)
[2017-11-17] MEDS: TEMAZEPAM 15 MG CAP PO PRN (22:19)
[2017-11-17] MEDS: LATANOPROST 0.005 % OPTH(EYE) SOL 2.5ML OP SCH (22:28)
[2017-11-18] MEDS: SODIUM CHLORIDE 0.9% 1,000 ML IV SCH ×2 (05:01→19:15)
[2017-11-18 05:49] VITALS: BP 170/86
[2017-11-18] MEDS: DEXTROSE (50%) 50ML SYRG IV PRN ×2 (06:27→06:57)
[2017-11-18] MEDS: MORPHINE SULFATE 10 MG/ML INJ 1ML SDV IV PRN ×2 (06:39→21:20)
[2017-11-18] MEDS: [UNRECOGNIZED DRUG - OTHER] OP SCH ×3 (06:54→21:28)
[2017-11-18] MEDS: InsuLIN REG 1unit/0.01ml Soln (100units/ml) SC SCH ×4 (06:55→21:36)
[2017-11-18] MEDS: ACCU-CHEK COMFORT CURVE STRIP VI SCH ×4 (06:55→21:35)
[2017-11-18] MEDS: ALBUTEROL SULF 2.5 MG/0.5ML(0.5%) NEB SOLN NEB SCH ×4 (07:05→20:00)
[2017-11-18] MEDS: IPRATROPIUM BROM 0.5 MG/2.5ML INH SOL NEB SCH ×4 (07:05→19:59)
[2017-11-18 07:07] LABS: Basophils # (auto) 0 uL; Basophils % (auto) 0.1 % (0.0-2.0); Eosinophils # (auto) 0 uL; Eosinophils % (auto) 0.1 % (0.0-7.0); Hematocrit 37.3 % (36.0-46.0); Hemoglobin 12.5 g/dL (12.2-16.2); Lymphocytes # (auto) 2.6 uL; Lymphocytes % (auto) 17.9 % (10.0-50.0); Mean Corpuscular Hgb Conc. 33.4 g/dL (32.0-36.0); Mean Corpuscular Volume 95.8 fL (80.0-100.0); Monocytes # (auto) 0.9 uL; Monocytes % (auto) 6.3 % (0.0-12.0); Neutrophils # (auto) 10.9 uL; Neutrophils % (auto) 75.6 % (37.0-80.0); Nucleated Red Blood Cells % 0.1 %; Platelet Count (auto) 171 10^3/uL (140-450); Red Cell Distribution Width 13.9 % (11.8-14.3); White Blood Cell 14.5 10^3/uL (4.4-10.8)
[2017-11-18 07:16] LABS: INR 0.97 (0.9-1.15); Partial Thromboplastin Time 25.6 sec (23.78-33.04); Prothrombin Time 10.4 sec (9.27-12.13)
[2017-11-18 07:26] LABS: Albumin 2.9 g/dL (3.4-5.0); Calcium 8.3 mg/dL (8.5-10.1); Potassium 3.7 mmol/L (3.5-5.1)
[2017-11-18 07:29] LABS: BUN/Creatinine Ratio 35.1
[2017-11-18 07:44] LABS: Bilirubin, Total 0.9 mg/dL (0.2-1.0); Total Protein 6.2 g/dL (6.4-8.2)
[2017-11-18] MEDS ORDERED: LORazepam 0.5 MG TAB ONE (08:19)
[2017-11-18] MEDS: LORazepam 0.5 MG TAB PO PRN ×2 (08:34→21:29)
[2017-11-18] MEDS: PANTOPRAZOLE 40 MG TAB PO SCH (10:00)
[2017-11-18] MEDS: ASPirin-EC 81 mg tab PO SCH (10:00)
[2017-11-18] MEDS: ENOXAPARIN SOD 60 MG/0.6 ML SYRINGE SC SCH (10:00)
[2017-11-18] MEDS: BUDESONIDE (INHALATION) 0.5 MG/2 ML NEB NEB SCH ×2 (10:22→20:01)
[2017-11-18] MEDS ORDERED: LIDOCAINE HCL 2 % INJ 2ML MPF NEB ONE (10:30)
[2017-11-18] MEDS ORDERED: MEPERIDINE HCL (25 MG/ML) 1ML VIAL IM ONE (10:30)
[2017-11-18] MEDS: LEVETIRACETAM 500 MG TAB PO SCH ×2 (10:46→21:22)
[2017-11-18] MEDS: DORZOLAMIDE HCL 2% OPTH(EYE) SOL 10ML OP SCH (10:46)
[2017-11-18] MEDS: SERTRALINE HCL 50 MG TAB PO SCH (10:46)
[2017-11-18 12:22] VITALS: BP 169/83
[2017-11-18] MEDS ORDERED: diphenhdrAMINE HCL 50 MG/1 ML VL ONE (13:01)
[2017-11-18] MEDS ORDERED: LIDOCAINE 2% (LOCAL ANESTH.) PF 5ml SDV ONE (13:02)
[2017-11-18] MEDS ORDERED: BENZOCAINE (DENTAL) 20 % SPRAY 60ML MT ONE (13:02)
[2017-11-18] MEDS ORDERED: fentaNYL CITRATE 100 MCG/2 ML VL ONE (13:03)
[2017-11-18] MEDS ORDERED: EPINEPHrine HCL 1 MG/1 ML AMP ONE (13:03)
[2017-11-18] MEDS ORDERED: SODIUM CHLORIDE LOCK 20 ML ONE (13:03)
[2017-11-18] MEDS ORDERED: LIDOCAINE 2% JELLY 11ml (GLYDO) ONE (13:04)
[2017-11-18] MEDS ORDERED: SODIUM CHLORIDE LOCK 50 ML ONE (13:35)
[2017-11-18] MEDS: MIDAZOLAM HCL 5 MG/ML-1ML VIAL ONE ×5 (14:02→14:09)
[2017-11-18 17:00] VITALS: BP 157/75
[2017-11-18] MEDS: PROMETHAZINE HCL 25 MG/ML 1ML IV PRN (21:21)
[2017-11-18] MEDS: ATORVASTATIN 20 MG TAB PO SCH (21:22)
[2017-11-18] MEDS: LATANOPROST 0.005 % OPTH(EYE) SOL 2.5ML OP SCH (21:35)
[2017-11-18 22:00] VITALS: BP 152/77
[2017-11-18] MEDS ORDERED: MORPHINE SULF INJ 2 MG/ML SYRINGE 1ML IV PRN (22:00)
[2017-11-19] VITALS (7 sets, daily range): BP systolic 122–135; BP diastolic 57–81
[2017-11-19] MEDS: MORPHINE SULF INJ 2 MG/ML SYRINGE 1ML IV PRN ×3 (01:27→18:56)
[2017-11-19] MEDS: [UNRECOGNIZED DRUG - OTHER] OP SCH ×3 (05:14→22:30)
[2017-11-19] MEDS: ACCU-CHEK COMFORT CURVE STRIP VI SCH ×4 (06:36→22:33)
[2017-11-19] MEDS: InsuLIN REG 1unit/0.01ml Soln (100units/ml) SC SCH ×4 (06:37→22:00)
[2017-11-19] MEDS: SODIUM CHLORIDE 0.9% 1,000 ML IV SCH (06:37)
[2017-11-19] MEDS: IPRATROPIUM BROM 0.5 MG/2.5ML INH SOL NEB SCH ×4 (07:03→18:34)
[2017-11-19] MEDS: ALBUTEROL SULF 2.5 MG/0.5ML(0.5%) NEB SOLN NEB SCH ×4 (07:03→18:34)
[2017-11-19] MEDS: BUDESONIDE (INHALATION) 0.5 MG/2 ML NEB NEB SCH ×2 (07:03→18:35)
[2017-11-19] MEDS: LEVETIRACETAM 500 MG TAB PO SCH ×2 (09:45→22:29)
[2017-11-19] MEDS: PANTOPRAZOLE 40 MG TAB PO SCH (09:45)
[2017-11-19] MEDS: ASPirin-EC 81 mg tab PO SCH (09:46)
[2017-11-19] MEDS: SERTRALINE HCL 50 MG TAB PO SCH (09:46)
[2017-11-19] MEDS: ENOXAPARIN SOD 60 MG/0.6 ML SYRINGE SC SCH (09:49)
[2017-11-19] MEDS: LORazepam 0.5 MG TAB PO PRN ×2 (09:57→22:40)
[2017-11-19] MEDS: DORZOLAMIDE HCL 2% OPTH(EYE) SOL 10ML OP SCH (10:00)
[2017-11-19] MEDS ORDERED: POTASSIUM CHL 20 Meq TABLET PO ONE (12:15)
[2017-11-19] MEDS ORDERED: FUROSEMIDE 40 MG/4 ML VIAL IV ONE (12:15)
[2017-11-19] MEDS ORDERED: LORazepam 2MG/ML-1ML VIAL IV PRN (12:15)
[2017-11-19] MEDS ORDERED: TEMAZEPAM 15 MG CAP PO PRN (12:15)
[2017-11-19] MEDS: ATORVASTATIN 20 MG TAB PO SCH (22:29)
[2017-11-19] MEDS: LATANOPROST 0.005 % OPTH(EYE) SOL 2.5ML OP SCH (22:29)
[2017-11-20] MEDS: [UNRECOGNIZED DRUG - OTHER] OP SCH ×3 (05:20→22:14)
[2017-11-20 06:02] VITALS: BP 133/66
[2017-11-20] MEDS: ACCU-CHEK COMFORT CURVE STRIP VI SCH ×4 (06:46→22:13)
[2017-11-20] MEDS: InsuLIN REG 1unit/0.01ml Soln (100units/ml) SC SCH ×4 (06:47→22:13)
[2017-11-20 07:14] LABS: Hematocrit 38.2 % (36.0-46.0); Hemoglobin 13.1 g/dL (12.2-16.2); Mean Corpuscular Hemoglobin 32.4 pg (28.0-32.0); Mean Corpuscular Hgb Conc. 34.3 g/dL (32.0-36.0); Mean Corpuscular Volume 94.5 fL (80.0-100.0); Platelet Count (auto) 159 10^3/uL (140-450); Red Blood Cells 4.04 10^6/uL (4.0-5.20); Red Cell Distribution Width 14.1 % (11.8-14.3); White Blood Cell 10.9 10^3/uL (4.4-10.8)
[2017-11-20] MEDS: ALBUTEROL SULF 2.5 MG/0.5ML(0.5%) NEB SOLN NEB SCH ×4 (07:15→18:08)
[2017-11-20] MEDS: IPRATROPIUM BROM 0.5 MG/2.5ML INH SOL NEB SCH ×4 (07:16→18:08)
[2017-11-20 07:19] LABS: Basophils % (manual) 0 (0.0-2.0); Blast Cells 0; Metamyelocytes % 0; Myelocytes % 0; Promyelocytes % 0; Reactive Lymphocytes 0
[2017-11-20 07:41] LABS: BUN/Creatinine Ratio 25.4; Potassium 3.5 mmol/L (3.5-5.1)
[2017-11-20 08:00] VITALS: BP 133/63
[2017-11-20] MEDS: PROMETHAZINE W/CODEINE 5 ML ORAL SYRUP PO PRN ×2 (08:53→21:51)
[2017-11-20 09:00] VITALS: BP 153/71
[2017-11-20] MEDS: MORPHINE SULF INJ 2 MG/ML SYRINGE 1ML IV PRN ×2 (09:07→10:41)
[2017-11-20] MEDS: POTASSIUM CHL 20 Meq TABLET PO SCH (11:03)
[2017-11-20] MEDS: SERTRALINE HCL 50 MG TAB PO SCH (11:04)
[2017-11-20] MEDS: PANTOPRAZOLE 40 MG TAB PO SCH (11:04)
[2017-11-20] MEDS: FUROSEMIDE 40 MG TAB PO SCH (11:04)
[2017-11-20] MEDS: ASPirin-EC 81 mg tab PO SCH (11:05)
[2017-11-20] MEDS: DORZOLAMIDE HCL 2% OPTH(EYE) SOL 10ML OP SCH (11:06)
[2017-11-20] MEDS: LEVETIRACETAM 500 MG TAB PO SCH ×2 (11:06→21:55)
[2017-11-20 11:13] LABS: Band Neutrophils % (manual) 3; Eosinophils % (manual) 2 (0-7); Lymphocytes % (manual) 28 (10.0-50.0); Monocytes % (manual) 10 (0-12)
[2017-11-20 12:31] VITALS: BP 135/78
[2017-11-20] MEDS: methylPREDNISolone SOD SUCC 125 MG/2 ML VL IV SCH ×2 (14:14→21:56)
[2017-11-20 17:00] VITALS: BP 132/74
[2017-11-20] MEDS: BUDESONIDE (INHALATION) 0.5 MG/2 ML NEB NEB SCH (18:08)
[2017-11-20] MEDS: LATANOPROST 0.005 % OPTH(EYE) SOL 2.5ML OP SCH (21:55)
[2017-11-20] MEDS: ATORVASTATIN 20 MG TAB PO SCH (21:55)
[2017-11-20 22:00] VITALS: BP 152/76
[2017-11-21] MEDS ORDERED: MORPHINE SULF INJ 10 MG/ML 10ML MDV IV PRN (02:00)
[2017-11-21] MEDS ORDERED: MORPHINE SULFATE 4 MG/ML SYR/VIAL ONE (02:03)
[2017-11-21] MEDS: ALBUTEROL SULF 2.5 MG/0.5ML(0.5%) NEB SOLN NEB SCH ×5 (03:45→18:43)
[2017-11-21] MEDS: methylPREDNISolone SOD SUCC 125 MG/2 ML VL IV SCH (05:25)
[2017-11-21] MEDS: [UNRECOGNIZED DRUG - OTHER] OP SCH ×3 (05:30→21:53)
[2017-11-21 05:52] VITALS: BP 158/97
[2017-11-21] MEDS: InsuLIN REG 1unit/0.01ml Soln (100units/ml) SC SCH ×4 (05:52→22:57)
[2017-11-21] MEDS: ACCU-CHEK COMFORT CURVE STRIP VI SCH ×4 (05:53→22:00)
[2017-11-21 05:56] LABS: Basophils # (auto) 0 uL; Basophils % (auto) 0.2 % (0.0-2.0); Eosinophils # (auto) 0 uL; Hematocrit 40.3 % (36.0-46.0); Hemoglobin 13.2 g/dL (12.2-16.2); Lymphocytes # (auto) 0.7 uL; Lymphocytes % (auto) 4.2 % (10.0-50.0); Mean Corpuscular Hemoglobin 31.8 pg (28.0-32.0); Mean Corpuscular Hgb Conc. 32.8 g/dL (32.0-36.0); Mean Corpuscular Volume 97.1 fL (80.0-100.0); Monocytes # (auto) 0.2 uL; Monocytes % (auto) 0.9 % (0.0-12.0); Neutrophils # (auto) 15.6 uL; Neutrophils % (auto) 94.7 % (37.0-80.0); Platelet Count (auto) 171 10^3/uL (140-450); Red Blood Cells 4.15 10^6/uL (4.0-5.20); Red Cell Distribution Width 14.3 % (11.8-14.3); White Blood Cell 16.4 10^3/uL (4.4-10.8)
[2017-11-21] MEDS: IPRATROPIUM BROM 0.5 MG/2.5ML INH SOL NEB SCH ×4 (06:11→18:42)
[2017-11-21 06:18] LABS: Calcium 8.6 mg/dL (8.5-10.1); Potassium 4.4 mmol/L (3.5-5.1)
[2017-11-21 06:20] LABS: BUN/Creatinine Ratio 24.4
[2017-11-21 09:01] VITALS: BP 157/76
[2017-11-21] MEDS: BUDESONIDE (INHALATION) 0.5 MG/2 ML NEB NEB SCH ×2 (10:10→18:43)
[2017-11-21] MEDS ORDERED: FUROSEMIDE 40 MG/4 ML VIAL IV ONE (10:45)
[2017-11-21] MEDS ORDERED: POTASSIUM CHL 20 Meq TABLET PO ONE (10:45)
[2017-11-21] MEDS ORDERED: DILTIAZEM HCL 120MG ER CAP PO ONE (11:00)
[2017-11-21] MEDS: DORZOLAMIDE HCL 2% OPTH(EYE) SOL 10ML OP SCH (11:24)
[2017-11-21] MEDS: FUROSEMIDE 40 MG TAB PO SCH (11:24)
[2017-11-21] MEDS: POTASSIUM CHL 20 Meq TABLET PO SCH (11:25)
[2017-11-21] MEDS: HYDROcodone-ACET 5/325MG TAB PO PRN ×2 (11:26→19:59)
[2017-11-21] MEDS: LEVETIRACETAM 500 MG TAB PO SCH ×2 (11:27→21:51)
[2017-11-21] MEDS: SERTRALINE HCL 50 MG TAB PO SCH (11:28)
[2017-11-21] MEDS: PANTOPRAZOLE 40 MG TAB PO SCH (11:28)
[2017-11-21] MEDS: ASPirin-EC 81 mg tab PO SCH (11:28)
[2017-11-21 13:00] VITALS: BP 139/67
[2017-11-21 17:00] VITALS: BP 136/72
[2017-11-21] MEDS: LORazepam 0.5 MG TAB PO PRN (19:41)
[2017-11-21] MEDS: ATORVASTATIN 20 MG TAB PO SCH (21:52)
[2017-11-21] MEDS: LATANOPROST 0.005 % OPTH(EYE) SOL 2.5ML OP SCH (21:54)
[2017-11-21 22:09] VITALS: BP 128/64
[2017-11-22] MEDS: LORazepam 0.5 MG TAB PO PRN (01:26)
[2017-11-22 05:09] VITALS: BP 137/66
[2017-11-22] MEDS: [UNRECOGNIZED DRUG - OTHER] OP SCH (06:00)
[2017-11-22] MEDS: IPRATROPIUM BROM 0.5 MG/2.5ML INH SOL NEB SCH ×3 (06:02→14:00)
[2017-11-22] MEDS: ALBUTEROL SULF 2.5 MG/0.5ML(0.5%) NEB SOLN NEB SCH ×3 (06:02→14:00)
[2017-11-22] MEDS: InsuLIN REG 1unit/0.01ml Soln (100units/ml) SC SCH ×2 (07:00→11:30)
[2017-11-22] MEDS: ACCU-CHEK COMFORT CURVE STRIP VI SCH ×2 (07:13→14:12)
[2017-11-22 08:52] VITALS: BP 137/78
[2017-11-22] MEDS: BUDESONIDE (INHALATION) 0.5 MG/2 ML NEB NEB SCH (09:35)
[2017-11-22] MEDS ORDERED: DILTIAZEM HCL 120MG ER CAP PO SCH (10:00)
[2017-11-22] MEDS ORDERED: predniSONE 20 MG TAB PO SCH (10:00)
[2017-11-22] MEDS: DORZOLAMIDE HCL 2% OPTH(EYE) SOL 10ML OP SCH (11:11)
[2017-11-22] MEDS: LEVETIRACETAM 500 MG TAB PO SCH (11:13)
[2017-11-22] MEDS: POTASSIUM CHL 20 Meq TABLET PO SCH (11:13)
[2017-11-22] MEDS: ASPirin-EC 81 mg tab PO SCH (11:13)
[2017-11-22] MEDS: SERTRALINE HCL 50 MG TAB PO SCH (11:14)
[2017-11-22] MEDS: FUROSEMIDE 40 MG TAB PO SCH (11:14)
[2017-11-22] MEDS: PANTOPRAZOLE 40 MG TAB PO SCH (11:14)
[2017-11-22 11:51] VITALS: BP 136/70
[2017-11-22 12:26] VITALS: BP 137/78
== END 2017-11-22 15:18 | disposition home or self-care (01) | DRG 133 ==
LOC: ER 05:44 → TELE 05:45 → TELE-EAST 11:38
PROVIDERS: ADMIT Internal Medicine; ATTEND Internal Medicine
PROC: 0BJ08ZZ Inspection of Tracheobronchial Tree, Via Natural or Artificial Opening Endoscopic (ICD-10-PCS; principal; 2017-11-18 13:39)
DX: J96.00 Acute respiratory failure, unspecified whether with hypoxia or hypercapnia (principal); I50.33 Acute on chronic diastolic (congestive) heart failure; E27.8 Other specified disorders of adrenal gland; J44.0 Chronic obstructive pulmonary disease with (acute) lower respiratory infection; I69.351 Hemiplegia and hemiparesis following cerebral infarction affecting right dominant side; J45.901 Unspecified asthma with (acute) exacerbation; Z99.81 Dependence on supplemental oxygen; I11.0 Hypertensive heart disease with heart failure; J44.1 Chronic obstructive pulmonary disease with (acute) exacerbation; G40.409 Other generalized epilepsy and epileptic syndromes, not intractable, without status epilepticus; E11.9 Type 2 diabetes mellitus without complications; E66.01 Morbid (severe) obesity due to excess calories; E78.5 Hyperlipidemia, unspecified; F17.210 Nicotine dependence, cigarettes, uncomplicated; F41.9 Anxiety disorder, unspecified; H40.9 Unspecified glaucoma; H54.62 Unqualified visual loss, left eye, normal vision right eye; I25.2 Old myocardial infarction; J20.9 Acute bronchitis, unspecified; K57.30 Diverticulosis of large intestine without perforation or abscess without bleeding; K58.9 Irritable bowel syndrome, unspecified; T38.0X5A Adverse effect of glucocorticoids and synthetic analogues, initial encounter; Z79.82 Long term (current) use of aspirin; Z79.899 Other long term (current) drug therapy; Z80.1 Family history of malignant neoplasm of trachea, bronchus and lung; Z82.49 Family history of ischemic heart disease and other diseases of the circulatory system; Z83.3 Family history of diabetes mellitus; Z90.710 Acquired absence of both cervix and uterus; Z93.3 Colostomy status; Y92.89 Other specified places as the place of occurrence of the external cause; Z90.49 Acquired absence of other specified parts of digestive tract; Z88.0 Allergy status to penicillin
CPT/HCPCS: 36415; 36600; 70450; 71045; 71046; 74176; 74181; 80048; 80053; 82150; 82378; 82805; 82962; 83036; 83690; 83735; 83880; 84484; 85007; 85025; 85027; 85610; 85652; 85730; 87070; 87081; 87205; 93005; 94640; 96374; 96375; J0171; J1815; J1956; J2250; J2270; J3490; J7060

== ENCOUNTER 2018-06-05 15:59 | Emergency (ER) | payer MEDICAID ==
[~2018-06-05] VITALS: Ht 172.7 cm; Wt 109.8 kg
[~2018-06-05 15:59] MED LIST changes: -DORZ2SOL
[2018-06-05 16:52] LABS: Basophils # (auto) 0 uL; Basophils % (auto) 0.6 % (0.0-2.0); Eosinophils # (auto) 0.1 uL; Eosinophils % (auto) 1.8 % (0.0-7.0); Hematocrit 41.4 % (36.0-46.0); Hemoglobin 13.6 g/dL (12.2-16.2); Lymphocytes # (auto) 2.4 uL; Mean Corpuscular Hemoglobin 31.7 pg (28.0-32.0); Mean Corpuscular Hgb Conc. 32.9 g/dL (32.0-36.0); Mean Corpuscular Volume 96.1 fL (80.0-100.0); Monocytes # (auto) 0.5 uL; Monocytes % (auto) 8.2 % (0.0-12.0); Neutrophils # (auto) 3.4 uL; Neutrophils % (auto) 52.4 % (37.0-80.0); Nucleated Red Blood Cells % 0.2 %; Platelet Count (auto) 216 10^3/uL (140-450); Red Blood Cells 4.31 10^6/uL (4.0-5.20); Red Cell Distribution Width 14.1 % (11.8-14.3); White Blood Cell 6.5 10^3/uL (4.4-10.8)
[2018-06-05 17:04] LABS: Albumin 3.8 g/dL (3.4-5.0); BUN/Creatinine Ratio 19.3; Potassium 4.2 mmol/L (3.5-5.1)
[2018-06-05 17:06] LABS: Bilirubin, Total 0.6 mg/dL (0.2-1.0); Total Protein 7.4 g/dL (6.4-8.2)
[2018-06-05] MEDS ORDERED: MECLIZINE HCL 25 MG TAB PO ONE (18:15)
[2018-06-05 18:20] VITALS: BP 135/81
== END 2018-06-05 18:21 | disposition home or self-care (01) ==
LOC: ER 15:59
DX: J04.0 Acute laryngitis (principal); F17.210 Nicotine dependence, cigarettes, uncomplicated; Z88.0 Allergy status to penicillin; Z88.8 Allergy status to other drugs, medicaments and biological substances; Z79.899 Other long term (current) drug therapy; Z90.49 Acquired absence of other specified parts of digestive tract; Z90.710 Acquired absence of both cervix and uterus; Z86.73 Personal history of transient ischemic attack (TIA), and cerebral infarction without residual deficits
CPT/HCPCS: 36415; 70450; 72125; 80053; 85025; 99284; J8597

== ENCOUNTER 2018-07-07 11:25 | Inpatient (IN) | payer MEDICAID | END 2018-07-15 09:30 | disposition home or self-care (01) | LOC: TELE-WESTW 07-08 15:20 → ER 11:25 → TELE 13:21 | DX: G40.409 Other generalized epilepsy and epileptic syndromes, not intractable, without status epilepticus (principal); J96.20 Acute and chronic respiratory failure, unspecified whether with hypoxia or hypercapnia; I50.33 Acute on chronic diastolic (congestive) heart failure; J18.9 Pneumonia, unspecified organism; Z99.81 Dependence on supplemental oxygen; E66.01 Morbid (severe) obesity due to excess calories; J44.0 Chronic obstructive pulmonary disease with (acute) lower respiratory infection; I10 Essential (primary) hypertension; E11.9 Type 2 diabetes mellitus without complications; J44.1 Chronic obstructive pulmonary disease with (acute) exacerbation; F17.200 Nicotine dependence, unspecified, uncomplicated; F41.9 Anxiety disorder, unspecified; E78.5 Hyperlipidemia, unspecified; Z80.1 Family history of malignant neoplasm of trachea, bronchus and lung; Z82.49 Family history of ischemic heart disease and other diseases of the circulatory system; K58.9 Irritable bowel syndrome, unspecified; Z86.73 Personal history of transient ischemic attack (TIA), and cerebral infarction without residual deficits; T38.0X5A Adverse effect of glucocorticoids and synthetic analogues, initial encounter ==

== ENCOUNTER 2018-08-11 14:32 | Inpatient (IN) | payer MEDICAID ==
[~2018-08-11] VITALS: Ht 170.2 cm; Wt 114.8 kg
[~2018-08-11 14:32] MED LIST changes: +AML5T PO; +ATOR20TA50 PO; +CITA-73 PO; -DIVA500T53 PO; +FURO40TA4 PO; -LEVO750T2 PO; -METH500T6 PO; -OMEP20TA44 PO; -PHE100C PO; +POTA20TA53 PO; +PRA25T PO; -PRE5T PO; -TRAM50TA2 PO
[2018-08-11] MEDS ORDERED: ONDANSETRON ODT 4 MG TAB PO ONE (14:45)
[2018-08-11 15:22] LABS: Basophils # (auto) 0.1 uL; Basophils % (auto) 0.9 % (0.0-2.0); Eosinophils # (auto) 0 uL; Hemoglobin 15.5 g/dL (12.2-16.2); Lymphocytes # (auto) 0.7 uL; Lymphocytes % (auto) 7.4 % (10.0-50.0); Mean Corpuscular Hemoglobin 31.6 pg (28.0-32.0); Mean Corpuscular Volume 95.6 fL (80.0-100.0); Monocytes # (auto) 0.5 uL; Monocytes % (auto) 4.7 % (0.0-12.0); Neutrophils # (auto) 8.8 uL; Nucleated Red Blood Cells % 0.1 %; Platelet Count (auto) 265 10^3/uL (140-450); Red Blood Cells 4.91 10^6/uL (4.0-5.20); Red Cell Distribution Width 14.2 % (11.8-14.3); White Blood Cell 10.2 10^3/uL (4.4-10.8)
[2018-08-11] MEDS ORDERED: IPRATROPIUM BROM 0.5 MG/2.5ML INH SOL NEB ONE (15:30)
[2018-08-11] MEDS ORDERED: methylPREDNISolone SOD SUCC 125 MG/2 ML VL IV ONE (15:30)
[2018-08-11] MEDS ORDERED: ALBUTEROL SULF 2.5 MG/0.5ML(0.5%) NEB SOLN NEB ONE (15:30)
[2018-08-11 15:43] LABS: Alanine Aminotransferase 17 U/L (13-56); Anion Gap 8 (5-15); Aspartate Aminotransferase 8 U/L (15-37); Blood Urea Nitrogen 15 mg/dL (7-18); Calcium 9.4 mg/dL (8.5-10.1); Carbon Dioxide 25 mmol/L (21-32); Chloride 102 mmol/L (98-107); Glucose 139 mg/dL (74-106); Potassium 4.3 mmol/L (3.5-5.1); Sodium 135 mmol/L (136-145)
[2018-08-11 15:47] LABS: Alkaline Phosphatase 116 U/L (45-117); BUN/Creatinine Ratio 19.7; Bilirubin, Total 0.8 mg/dL (0.2-1.0); GFR African American 99 mL/min; GFR Non-African American 82 mL/min; Total Protein 8.2 g/dL (6.4-8.2)
[2018-08-11] MEDS ORDERED: OSELTAMIVIR 75 MG CAP PO ONE (17:45)
[2018-08-11] MEDS ORDERED: LACTULOSE 20Gm/30ML SOLN PO PRN (17:45)
[2018-08-11] MEDS ORDERED: TEMAZEPAM 15 MG CAP PO PRN (17:45)
[2018-08-11] MEDS ORDERED: DEXTROSE (50%) 50ML SYRG IV PRN (17:45)
[2018-08-11] MEDS ORDERED: MORPHINE SULFATE 4 MG/ML SYR/VIAL IV PRN (17:45)
[2018-08-11] MEDS ORDERED: NITROGLYCERIN 0.4 MG SL TAB SL PRN (17:45)
[2018-08-11] MEDS ORDERED: ALBUTEROL SULF 2.5 MG/0.5ML(0.5%) NEB SOLN NEB PRN (17:45)
[2018-08-11] MEDS: DOXYCYCLINE 100MG/250ML 250 ML IV SCH (18:23)
[2018-08-11] MEDS: LORazepam 0.5 MG TAB PO PRN (18:24)
[2018-08-11] MEDS: HYDROcodone-ACET 5/325MG TAB PO PRN (18:26)
[2018-08-11] MEDS: IPRATROPIUM BROM 0.5 MG/2.5ML INH SOL NEB SCH (18:37)
[2018-08-11] MEDS: ALBUTEROL SULF 2.5 MG/0.5ML(0.5%) NEB SOLN NEB SCH (18:37)
[2018-08-11 19:19] VITALS: BP 167/98
[2018-08-11] MEDS: PRAMIPEXOLE DIHYDROCHLORIDE MO 0.25 MG TAB PO SCH (20:20)
[2018-08-11] MEDS: METHOCARBAMOL 500 MG TAB PO PRN (20:41)
--- NOTE | 2018-08-11 21:40 | NUR ---
Telemetry admit from [facility] admitted to Telemetry unit after SBAR received. Patient oriented to MANA RAYO, primary RN, unit, room, bed, and unit policies regarding patient care and visiting hours. Patient now on continuous telemetry monitoring, tele box # 08. Patient placed on bedside oxygen, weighed by bedscale and encouraged to call if they need something. All questions and concerns addressed, patient verbalized understanding.
[2018-08-11] MEDS: MORPHINE SULFATE 4 MG/ML SYR/VIAL IV PRN (22:01)
[2018-08-11] MEDS: ACCU-CHEK COMFORT CURVE STRIP VI SCH (22:52)
[2018-08-11] MEDS: ATORVASTATIN 20 MG TAB PO SCH (22:52)
[2018-08-11] MEDS: LEVETIRACETAM 500 MG TAB PO SCH (22:52)
[2018-08-11] MEDS: BRIMONIDINE 0.2% OPTH Soln 5ml OP SCH (22:53)
[2018-08-11] MEDS: LATANOPROST 0.005 % OPTH(EYE) SOL 2.5ML OP SCH (22:53)
[2018-08-11] MEDS: InsuLIN REG 1unit/0.01ml Soln (100units/ml) SC SCH (22:53)
[2018-08-11] MEDS: SODIUM CHLOR 0.9% PF (SALINE LOCK) 10ML VIAL/SYR IV SCH (22:54)
[2018-08-12] VITALS (8 sets, daily range): BP systolic 106–145; BP diastolic 56–93
[2018-08-12] MEDS: IPRATROPIUM BROM 0.5 MG/2.5ML INH SOL NEB SCH ×4 (00:21→19:15)
[2018-08-12] MEDS: ALBUTEROL SULF 2.5 MG/0.5ML(0.5%) NEB SOLN NEB SCH ×4 (00:21→19:15)
[2018-08-12] MEDS: ACETAMINOPHEN 500 MG TAB PO PRN ×2 (02:38→20:07)
--- NOTE | 2018-08-12 02:56 | NUR ---
PT REFUSED TO ANSWER ADMISSION QUESTIONS AT THIS TIME
[2018-08-12] MEDS: SODIUM CHLOR 0.9% PF (SALINE LOCK) 10ML VIAL/SYR IV SCH ×3 (06:24→22:11)
[2018-08-12] MEDS: DOXYCYCLINE 100MG/250ML 250 ML IV SCH ×2 (06:24→17:42)
[2018-08-12] MEDS: BRIMONIDINE 0.2% OPTH Soln 5ml OP SCH ×3 (06:25→22:12)
--- NOTE | 2018-08-12 07:20 | NUR ---
Opening Shift Note Assumed care of patient, awake and alert. No S/S of distress/SOB or pain. Instructed on POC and to call for assist PRN, will continue to monitor for changes Q1hr and PRN.
[2018-08-12] MEDS: InsuLIN REG 1unit/0.01ml Soln (100units/ml) SC SCH ×4 (07:28→22:00)
[2018-08-12] MEDS: ACCU-CHEK COMFORT CURVE STRIP VI SCH ×4 (07:28→22:13)
--- NOTE | 2018-08-12 08:10 | NUR ---
called Gurpreet Michele/ [facility] to bring in home medication information as patient's request. ( [phone])
[2018-08-12] MEDS: CITALOPRAM HYDROBR 20 MG TAB PO SCH (09:15)
[2018-08-12] MEDS: amLODIPine BESYLATE 5 MG TAB PO SCH (09:15)
[2018-08-12] MEDS: POTASSIUM CHL 20 Meq TABLET PO SCH (09:16)
[2018-08-12] MEDS: FUROSEMIDE 40 MG TAB PO SCH (09:16)
[2018-08-12] MEDS: ENOXAPARIN SOD 40 MG/0.4 ML SYRINGE SC SCH (09:16)
[2018-08-12] MEDS: LEVETIRACETAM 500 MG TAB PO SCH ×2 (09:16→22:12)
[2018-08-12] MEDS: HYDROcodone-ACET 5/325MG TAB PO PRN ×2 (09:16→17:43)
[2018-08-12] MEDS ORDERED: OSELTAMIVIR 75 MG CAP PO SCH (10:00)
--- NOTE | 2018-08-12 12:30 | NUR ---
IV removal Left EJ IV DC'd with clean sterile technique, catheter fully intact. Pressure dressing applied to site. Patient tolerated well. NOTE: [] IV insertion IV access obtained, via clean sterile technique by inserting 22 gauge catheter at left wrist after 2 attempts. IV secured properly. No trauma to site. Patient tolerated well. NOTE: []
[2018-08-12] MEDS ORDERED: methylPREDNISolone SOD SUCC 40 MG/ML VL IV ONE (12:45)
[2018-08-12] MEDS: LORazepam 0.5 MG TAB PO PRN ×2 (12:47→20:35)
[2018-08-12] MEDS ORDERED: LORazepam 0.5 MG TAB PO PRN (13:00)
--- NOTE | 2018-08-12 18:54 | NUR ---
Hospitalist paged Patient reports unrelieved pain with norco. Patient states morphine gives her a headache.
--- NOTE | 2018-08-12 19:15 | NUR ---
OPEN SHIFT NOTE PATENT IS ALERT AND ORIENTED X4, 2L NASAL CANNULA, 22 GAUGE IN THE LEFT WRIST IS INTACT AND PATENT. FAMILY AT BEDSIDE. POC DISCUSSED AND QUESTIONS ANSWERED. BED IS LOCKED IN LOWEST POSITION WITH SIDE RAILS UP X2, CALL LIGHT IS WITHIN REACH. WILL CONTINUE TO ROUND Q1HR AND PRN.
[2018-08-12] MEDS: PRAMIPEXOLE DIHYDROCHLORIDE MO 0.25 MG TAB PO SCH (20:05)
[2018-08-12] MEDS: METHOCARBAMOL 500 MG TAB PO PRN (20:06)
[2018-08-12] MEDS: methylPREDNISolone SOD SUCC 40 MG/ML VL IV SCH (22:11)
[2018-08-12] MEDS: ATORVASTATIN 20 MG TAB PO SCH (22:12)
[2018-08-12] MEDS: LATANOPROST 0.005 % OPTH(EYE) SOL 2.5ML OP SCH (22:12)
[2018-08-13] VITALS (7 sets, daily range): BP systolic 113–138; BP diastolic 56–76
--- NOTE | 2018-08-13 05:05 | NUR ---
HOSPITALIST PAGED PATIENT STATING MORPHINE GIVES HEADACHE, AND NORCO DOES NOT RELIEVE PAIN. PAIN IS IN ABDOMEN AND BACK.
[2018-08-13] MEDS: BRIMONIDINE 0.2% OPTH Soln 5ml OP SCH ×3 (06:03→22:56)
[2018-08-13] MEDS: ACCU-CHEK COMFORT CURVE STRIP VI SCH ×4 (06:04→22:58)
[2018-08-13] MEDS: DOXYCYCLINE 100MG/250ML 250 ML IV SCH ×2 (06:20→18:37)
[2018-08-13] MEDS: methylPREDNISolone SOD SUCC 40 MG/ML VL IV SCH ×3 (06:20→22:56)
[2018-08-13] MEDS: SODIUM CHLOR 0.9% PF (SALINE LOCK) 10ML VIAL/SYR IV SCH ×3 (06:20→22:56)
[2018-08-13] MEDS: InsuLIN REG 1unit/0.01ml Soln (100units/ml) SC SCH ×4 (06:21→23:05)
[2018-08-13] MEDS: HYDROcodone-ACET 5/325MG TAB PO PRN ×2 (06:26→18:52)
[2018-08-13] MEDS: METHOCARBAMOL 500 MG TAB PO PRN (06:27)
[2018-08-13] MEDS: LORazepam 0.5 MG TAB PO PRN ×3 (06:44→18:37)
[2018-08-13] MEDS: IPRATROPIUM BROM 0.5 MG/2.5ML INH SOL NEB SCH ×4 (06:45→19:32)
[2018-08-13] MEDS: ALBUTEROL SULF 2.5 MG/0.5ML(0.5%) NEB SOLN NEB SCH ×4 (06:45→19:32)
[2018-08-13] MEDS: MORPHINE SULFATE 4 MG/ML SYR/VIAL IV PRN (08:43)
[2018-08-13 08:48] LABS: Urine Bacteria FEW /hpf (None Seen); Urine Blood Negative /uL (Negative); Urine Mucus FEW (None Seen); Urine Specific Gravity 1.027 (1.001-1.035); Urine WBC 2 /hpf (0 - 5)
[2018-08-13] MEDS: POTASSIUM CHL 20 Meq TABLET PO SCH (10:07)
[2018-08-13] MEDS: FUROSEMIDE 40 MG TAB PO SCH (10:07)
[2018-08-13] MEDS: LEVETIRACETAM 500 MG TAB PO SCH ×2 (10:07→22:57)
[2018-08-13] MEDS: ENOXAPARIN SOD 40 MG/0.4 ML SYRINGE SC SCH (10:07)
[2018-08-13] MEDS: amLODIPine BESYLATE 5 MG TAB PO SCH (10:07)
[2018-08-13] MEDS: CITALOPRAM HYDROBR 20 MG TAB PO SCH (10:08)
--- NOTE | 2018-08-13 14:35 | NUR ---
RT NOTE: PT. REFUSED BREATHING TX. AT THIS TIME. PT. STATES SHE JUST WANTS TO SLEEP. PT. DENIES ANY SOB. PT. HR 67, RR16, POX 95% R/A. PT. AWARE OF WHEN NEXT SCHEDULED BREATHING TX. IS.
--- NOTE | 2018-08-13 18:45 | NUR ---
SEIZURE Patient was reporting a headache, during assessment patient experienced a seizure that lasted one minute. Once seizure subsided, patient slowly regained consciousness, A/O x4. Placed n/c on patient, delivering 2L, vitals as follows: BP: 142/69, sPo2: 96%, HR: 78, RR: 18. at bedside, both report that last seizure was two days ago. Patient verbalized she is feeling anxious, and is still having a headache. Provided with ativan and norco as prescribed. Seizure precautions remain in place.
[2018-08-13] MEDS: PRAMIPEXOLE DIHYDROCHLORIDE MO 0.25 MG TAB PO SCH (20:00)
[2018-08-13] MEDS: PROMETHAZINE HCL 25 MG/ML 1ML IV PRN (20:21)
[2018-08-13] MEDS: LATANOPROST 0.005 % OPTH(EYE) SOL 2.5ML OP SCH (22:57)
[2018-08-13] MEDS: ATORVASTATIN 20 MG TAB PO SCH (22:57)
[2018-08-14 05:32] VITALS: BP 137/67
[2018-08-14] MEDS: IPRATROPIUM BROM 0.5 MG/2.5ML INH SOL NEB SCH ×4 (05:37→18:23)
[2018-08-14] MEDS: ALBUTEROL SULF 2.5 MG/0.5ML(0.5%) NEB SOLN NEB SCH ×4 (05:37→18:23)
[2018-08-14] MEDS: methylPREDNISolone SOD SUCC 40 MG/ML VL IV SCH ×3 (06:16→22:16)
[2018-08-14] MEDS: SODIUM CHLOR 0.9% PF (SALINE LOCK) 10ML VIAL/SYR IV SCH ×3 (06:16→22:17)
[2018-08-14] MEDS: BRIMONIDINE 0.2% OPTH Soln 5ml OP SCH ×3 (06:17→23:29)
[2018-08-14] MEDS: DOXYCYCLINE 100MG/250ML 250 ML IV SCH (06:17)
[2018-08-14] MEDS: ACCU-CHEK COMFORT CURVE STRIP VI SCH ×4 (06:32→22:17)
[2018-08-14] MEDS: InsuLIN REG 1unit/0.01ml Soln (100units/ml) SC SCH ×4 (06:33→22:26)
--- NOTE | 2018-08-14 07:15 | NUR ---
Open Shift Note Received report on patient asleep in bed, awoken when entered. Patient states they have a headache. Discussed PRN pain medication and POC with patient. Bed in lowest locked position, side rails up x2, and call light within reach. Will continue to monitor.
[2018-08-14] MEDS: LORazepam 0.5 MG TAB PO PRN (08:24)
[2018-08-14] MEDS: ACETAMINOPHEN 500 MG TAB PO PRN (08:24)
[2018-08-14 08:45] VITALS: BP 134/67
[2018-08-14] MEDS: ENOXAPARIN SOD 40 MG/0.4 ML SYRINGE SC SCH (09:36)
[2018-08-14] MEDS: CITALOPRAM HYDROBR 20 MG TAB PO SCH (09:36)
[2018-08-14] MEDS: POTASSIUM CHL 20 Meq TABLET PO SCH (09:37)
[2018-08-14] MEDS: LEVETIRACETAM 500 MG TAB PO SCH ×2 (09:37→22:16)
[2018-08-14] MEDS: FUROSEMIDE 40 MG TAB PO SCH (09:37)
[2018-08-14] MEDS: amLODIPine BESYLATE 5 MG TAB PO SCH (09:37)
--- NOTE | 2018-08-14 12:05 | NUR ---
Dr Foreman at Bedside Dr Foreman at patient bedside.
[2018-08-14 12:07] VITALS: BP 136/72
[2018-08-14] MEDS ORDERED: PROMETHAZINE W/CODEINE 5 ML ORAL SYRUP PO PRN (12:15)
[2018-08-14] MEDS: PROMETHAZINE HCL 25 MG/ML 1ML IV PRN (12:16)
[2018-08-14] MEDS: METHOCARBAMOL 500 MG TAB PO PRN ×2 (12:21→22:15)
[2018-08-14 17:07] VITALS: BP 130/69
--- NOTE | 2018-08-14 18:56 | NUR ---
End of Shift Endorsed care to NOC nurse. Patient shows no signs of distress at this time. Bed in lowest locked position, side rails up x2, and call light within reach.
[2018-08-14] MEDS: PRAMIPEXOLE DIHYDROCHLORIDE MO 0.25 MG TAB PO SCH (21:17)
[2018-08-14 22:00] VITALS: BP 151/77
[2018-08-14] MEDS: DOXYCYCLINE 100 MG TAB/CAP PO SCH (22:16)
[2018-08-14] MEDS: ATORVASTATIN 20 MG TAB PO SCH (22:17)
[2018-08-14] MEDS: LATANOPROST 0.005 % OPTH(EYE) SOL 2.5ML OP SCH (23:29)
[2018-08-14] MEDS: HYDROcodone-ACET 5/325MG TAB PO PRN (23:36)
[2018-08-15 02:44] VITALS: BP 151/77
[2018-08-15 05:00] VITALS: BP 139/59
[2018-08-15] MEDS: BRIMONIDINE 0.2% OPTH Soln 5ml OP SCH ×2 (05:51→14:00)
[2018-08-15] MEDS: InsuLIN REG 1unit/0.01ml Soln (100units/ml) SC SCH ×2 (05:52→11:30)
[2018-08-15] MEDS: ACCU-CHEK COMFORT CURVE STRIP VI SCH ×2 (05:52→12:04)
[2018-08-15] MEDS: METHOCARBAMOL 500 MG TAB PO PRN (05:56)
[2018-08-15] MEDS: methylPREDNISolone SOD SUCC 40 MG/ML VL IV SCH ×2 (05:58→14:00)
[2018-08-15] MEDS: SODIUM CHLOR 0.9% PF (SALINE LOCK) 10ML VIAL/SYR IV SCH ×2 (05:59→14:00)
--- NOTE | 2018-08-15 06:35 | NUR ---
END OF SHIFT PATIENT RESTING IN BED. STILL COMPLAINING OF A BAD HEADACHE. DECLINED NORCO BUT PRN ROBAXIN ADMINISTERED PER PATIENT REQUEST. NO SIGNS OF RESPIRATORY DISTRESS NOTED. BED IN LOWEST LOCKED POSITION AND CALL CARRILLO W/IN REACH. ENDORSING CARE TO DAY RN.
[2018-08-15] MEDS: IPRATROPIUM BROM 0.5 MG/2.5ML INH SOL NEB SCH ×3 (06:59→14:00)
[2018-08-15] MEDS: ALBUTEROL SULF 2.5 MG/0.5ML(0.5%) NEB SOLN NEB SCH ×3 (07:00→14:00)
--- NOTE | 2018-08-15 07:15 | NUR ---
Open Shift Note Received report on patient ,asleep in bed but awoken easily. Patient states they did not get much sleep. Shows no signs of distress at this time. Discussed POC with patient. Bed in lowest locked position, side rails up x2, and call light within reach. Will continue to monitor.
[2018-08-15 09:27] VITALS: BP 130/73
[2018-08-15] MEDS: HYDROcodone-ACET 5/325MG TAB PO PRN (09:37)
[2018-08-15] MEDS: DOXYCYCLINE 100 MG TAB/CAP PO SCH (09:38)
[2018-08-15] MEDS: POTASSIUM CHL 20 Meq TABLET PO SCH (09:40)
[2018-08-15] MEDS: CITALOPRAM HYDROBR 20 MG TAB PO SCH (09:40)
[2018-08-15] MEDS: amLODIPine BESYLATE 5 MG TAB PO SCH (09:40)
[2018-08-15] MEDS: LEVETIRACETAM 500 MG TAB PO SCH (09:40)
--- NOTE | 2018-08-15 11:30 | NUR ---
Case Management Spoke with Mara from case management who stated that patient is to resume home hospice care tomorrow.
--- NOTE | 2018-08-15 12:00 | NUR ---
Discharged Discharge instructions given as ordered. Encourage to follow up with hospice care as instructed. All questions and concerns addressed. Patient verbalized understanding. IV removed with catheter intact, pressure dressing applied. Patient taken to vehicle via wheelchair with all personal belongings, accompanied by family member. No distress noted at time of departure.
[2018-08-15 12:39] VITALS: BP 130/73
[2018-08-15 13:08] VITALS: BP 154/80
--- NOTE | 2018-08-15 13:45 | NUR ---
Discharged Discharge instructions given as ordered. Encourage to follow up with PMD as instructed. All questions and concerns addressed. Patient verbalized understanding. Medication reconciliation form completed and copy given to patient. IV removed with catheter intact, pressure dressing applied. Patient taken to vehicle with all personal belongings, accompanied by family member. No distress noted at time of departure.
== END 2018-08-15 13:45 | disposition home or self-care (01) | DRG 139 ==
LOC: ER 14:34 → TELE 17:45 → WEST WING 20:59 → TELE-WESTW 21:45 → WEST WING 08-12 13:34
PROVIDERS: ADMIT Internal Medicine; ATTEND Internal Medicine
DX: J18.9 Pneumonia, unspecified organism (principal); J96.10 Chronic respiratory failure, unspecified whether with hypoxia or hypercapnia; I11.0 Hypertensive heart disease with heart failure; I50.32 Chronic diastolic (congestive) heart failure; E66.01 Morbid (severe) obesity due to excess calories; J44.1 Chronic obstructive pulmonary disease with (acute) exacerbation; F41.9 Anxiety disorder, unspecified; G40.909 Epilepsy, unspecified, not intractable, without status epilepticus; I10 Essential (primary) hypertension; E78.5 Hyperlipidemia, unspecified; E11.9 Type 2 diabetes mellitus without complications; J44.0 Chronic obstructive pulmonary disease with (acute) lower respiratory infection; K57.90 Diverticulosis of intestine, part unspecified, without perforation or abscess without bleeding; F17.210 Nicotine dependence, cigarettes, uncomplicated; E66.9 Obesity, unspecified; H40.9 Unspecified glaucoma; Z80.1 Family history of malignant neoplasm of trachea, bronchus and lung; Z82.49 Family history of ischemic heart disease and other diseases of the circulatory system; Z83.3 Family history of diabetes mellitus; Z86.73 Personal history of transient ischemic attack (TIA), and cerebral infarction without residual deficits; Z90.710 Acquired absence of both cervix and uterus; Z90.89 Acquired absence of other organs; Z68.39 Body mass index [BMI] 39.0-39.9, adult; Z90.49 Acquired absence of other specified parts of digestive tract; Z99.81 Dependence on supplemental oxygen; Z88.0 Allergy status to penicillin; Z79.899 Other long term (current) drug therapy
CPT/HCPCS: 36415; 70450; 71045; 71046; 80053; 81001; 82962; 83036; 84484; 85025; 87804; 93005; 94640; 96374; 96375; G0378; J1815; J3490; Q0162

== ENCOUNTER 2018-10-03 10:50 | Inpatient (IN) | payer MEDICAID ==
[~2018-10-03] VITALS: Ht 172.7 cm; Wt 118.9 kg
[2018-10-03] MEDS ORDERED: MORPHINE SULFATE 4 MG/ML SYR/VIAL IV ONE (11:15)
[2018-10-03] MEDS ORDERED: ASPirin 81 mg TAB PO ONE (11:15)
[2018-10-03] MEDS ORDERED: ONDANSETRON HCL 4 MG/2 ML VIAL IV ONE (11:15)
[2018-10-03 11:20] LABS: Basophils # (auto) 0.1 uL; Basophils % (auto) 0.7 % (0.0-2.0); Eosinophils # (auto) 0.1 uL; Eosinophils % (auto) 1.7 % (0.0-7.0); Hematocrit 41.9 % (36.0-46.0); Hemoglobin 13.8 g/dL (12.2-16.2); Lymphocytes # (auto) 2.5 uL; Mean Corpuscular Hemoglobin 31.8 pg (28.0-32.0); Mean Corpuscular Volume 96.3 fL (80.0-100.0); Monocytes # (auto) 0.6 uL; Monocytes % (auto) 7.9 % (0.0-12.0); Neutrophils # (auto) 4.5 uL; Neutrophils % (auto) 57.7 % (37.0-80.0); Nucleated Red Blood Cells % 0.1 %; Platelet Count (auto) 202 10^3/uL (140-450); Red Blood Cells 4.35 10^6/uL (4.0-5.20); White Blood Cell 7.7 10^3/uL (4.4-10.8)
[2018-10-03 11:34] LABS: INR 0.89 (0.9-1.15); Prothrombin Time 9.6 sec (9.27-12.13)
[2018-10-03 11:37] LABS: Albumin 3.7 g/dL (3.4-5.0); Anion Gap 4 (5-15); Blood Urea Nitrogen 15 mg/dL (7-18); Calcium 8.7 mg/dL (8.5-10.1); Carbon Dioxide 27 mmol/L (21-32); Chloride 111 mmol/L (98-107); Glucose 93 mg/dL (74-106); Magnesium 2.3 mg/dL (1.6-2.6); Potassium 3.9 mmol/L (3.5-5.1); Sodium 142 mmol/L (136-145)
[2018-10-03 11:43] LABS: Alanine Aminotransferase 21 U/L (13-56); Alkaline Phosphatase 108 U/L (45-117); Aspartate Aminotransferase 8 U/L (15-37); BUN/Creatinine Ratio 22.7; Bilirubin, Total 0.8 mg/dL (0.2-1.0); GFR African American 116 mL/min; GFR Non-African American 96 mL/min; Total Protein 7.2 g/dL (6.4-8.2)
[2018-10-03] MEDS ORDERED: FUROSEMIDE 40 MG/4 ML VIAL IV ONE (13:00)
[2018-10-03] MEDS ORDERED: IPRATROPIUM BROM 0.5 MG/2.5ML INH SOL NEB ONE (15:30)
[2018-10-03] MEDS ORDERED: LISINOPRIL 5 MG TAB PO ONE (15:30)
[2018-10-03] MEDS ORDERED: ALBUTEROL SULF 2.5 MG/0.5ML(0.5%) NEB SOLN NEB ONE (15:30)
[2018-10-03] MEDS ORDERED: methylPREDNISolone SOD SUCC 125 MG/2 ML VL IV ONE (15:30)
[2018-10-03] MEDS ORDERED: MORPHINE SULF INJ 2 MG/ML SYRINGE 1ML IV PRN (15:30)
[2018-10-03] MEDS: ACETAMINOPHEN 500 MG TAB PO PRN (16:20)
[2018-10-03] MEDS: LEVOFLOXACIN 750MG 150 ML IV SCH (17:12)
[2018-10-03] MEDS: guaiFENesin-CODEINE LIQUID 5 ML UD PO PRN ×2 (17:25→22:02)
--- NOTE | 2018-10-03 18:38 | NUR ---
Telemetry admit from [facility] admitted to Telemetry unit after SBAR received. Patient oriented to SIGIFREDO CHAVEZ, primary RN, unit, room, bed, and unit policies regarding patient care and visiting hours. Patient now on continuous telemetry monitoring, tele box #15. Patient placed on 1.5L bedside oxygen VIA NC, weighed by bedscale and encouraged to call if they need something. All questions and concerns addressed, patient verbalized understanding, patient states she is HANS Kevin's mother.
--- NOTE | 2018-10-03 19:10 | NUR ---
Opening Shift Note Assumed care of patient from day shift RN Keon. Pt is awake and alert and oriented x4. Pt on 1.5L NC, respirations even equal and unlabored. No S/S of distress/SOB or pain. Safety maintained with bed rails upx2, locked and in lowest position with call frias within reach. Instructed on POC and to call for assist PRN, will continue to monitor for changes Q1hr and PRN.
[2018-10-03 19:30] VITALS: BP 121/68
--- NOTE | 2018-10-03 19:30 | NUR ---
ADVANCED DIRECTIVE/MED REC Pt states she has advanced directive but does not have a copy, will ask Gurpreet to bring in a copy tomorrow. Patient also does not recall home medications, will call pharmacy ([facility]) in AM to fax list of current home medications. Patient does have eyedrops at bedside, patient states "I NEED these eyedrops" and refusing RN to collect medications to give to pharmacy. Educated pt on importance of sending to pharmacy and policies of hospital. Patient still refusing, states "I get this medication shipped far away, I don't want to risk losing it or not being able to take it."
[2018-10-03] MEDS: BUDESONIDE (INHALATION) 0.5 MG/2 ML NEB NEB SCH (20:40)
[2018-10-03] MEDS: ALBUTEROL SULF 2.5 MG/0.5ML(0.5%) NEB SOLN NEB SCH (20:40)
[2018-10-03] MEDS: IPRATROPIUM BROM 0.5 MG/2.5ML INH SOL NEB SCH (20:40)
[2018-10-03] MEDS: HYDROcodone-ACET 5/325MG TAB PO PRN (21:41)
[2018-10-03] MEDS: LEVETIRACETAM 500 MG TAB PO SCH (21:41)
[2018-10-03] MEDS: methylPREDNISolone SOD SUCC 40 MG/ML VL IV SCH (21:53)
--- NOTE | 2018-10-03 22:00 | NUR ---
PT C/O INSOMNIA Pt states she "hasn't slept in over 38 hours" and requesting sleeping pill. Jess hospitalist, awaiting call back. Addendum: 10/03/18 at 2245 by KATHRYN JOHNSON RN RN MINGO MOSS RETURNED CALL. NEW ORDERS RECEIVED FOR TEMAZEPAM 15MG PO ONCE
[2018-10-03] MEDS ORDERED: TEMAZEPAM 15 MG CAP PO ONE (22:45)
[2018-10-03 23:25] VITALS: BP 121/68
--- NOTE | 2018-10-04 02:00 | NUR ---
IV insertion IV access obtained, via clean sterile technique by inserting 24 gauge catheter at LEFT FA after 3 attempt(s). IV secured properly. No trauma to site. Patient tolerated well. IV removal PT C/O PAIN/SWELLING IN RIGHT FA IV. DC'd with clean sterile technique, catheter fully intact. Pressure dressing applied to site. Patient tolerated well.
[2018-10-04] MEDS: MORPHINE SULF INJ 2 MG/ML SYRINGE 1ML IV PRN ×4 (02:26→16:22)
[2018-10-04] MEDS: HYDROcodone-ACET 5/325MG TAB PO PRN ×2 (04:04→10:05)
[2018-10-04 05:15] VITALS: BP 139/76
--- NOTE | 2018-10-04 06:00 | NUR ---
PT C/O ANXIETY Patient states she's having very bad anxiety, unable to sleep throughout the night, states "I've been up for over 40 hours." Patient states she usually takes Ativan at home and during her hospital stays. Hospitalist sang, awaiting call back. Addendum: 10/04/18 at 0622 by KATHRYN JOHNSON RN RN MINGO Rivera returned call. No new orders given, states "she can wait until the attending doctor sees her in the morning."
[2018-10-04 07:02] LABS: Potassium 4.3 mmol/L (3.5-5.1)
--- NOTE | 2018-10-04 07:02 | NUR ---
Closing Shift Note Patient resting in bed, no s/s distress. Endorsed care to day shift PARTHA Yoon.
[2018-10-04 07:07] LABS: BUN/Creatinine Ratio 22.9; Calcium 8.7 mg/dL (8.5-10.1)
[2018-10-04 07:09] LABS: Basophils # (auto) 0 uL; Basophils % (auto) 0.2 % (0.0-2.0); Eosinophils # (auto) 0 uL; Hematocrit 39.9 % (36.0-46.0); Hemoglobin 13.4 g/dL (12.2-16.2); Lymphocytes # (auto) 0.9 uL; Lymphocytes % (auto) 9.7 % (10.0-50.0); Mean Corpuscular Hemoglobin 32.5 pg (28.0-32.0); Mean Corpuscular Hgb Conc. 33.6 g/dL (32.0-36.0); Mean Corpuscular Volume 96.7 fL (80.0-100.0); Monocytes # (auto) 0.1 uL; Monocytes % (auto) 1.3 % (0.0-12.0); Neutrophils # (auto) 8.4 uL; Neutrophils % (auto) 88.8 % (37.0-80.0); Platelet Count (auto) 185 10^3/uL (140-450); Red Blood Cells 4.12 10^6/uL (4.0-5.20); Red Cell Distribution Width 15.1 % (11.8-14.3); White Blood Cell 9.5 10^3/uL (4.4-10.8)
[2018-10-04] MEDS: IPRATROPIUM BROM 0.5 MG/2.5ML INH SOL NEB SCH ×4 (07:10→22:18)
[2018-10-04] MEDS: ALBUTEROL SULF 2.5 MG/0.5ML(0.5%) NEB SOLN NEB SCH ×4 (07:10→22:18)
[2018-10-04] MEDS: BUDESONIDE (INHALATION) 0.5 MG/2 ML NEB NEB SCH ×2 (07:11→19:39)
--- NOTE | 2018-10-04 07:11 | NUR ---
Respiratory note: SCHEDULED MED NEB TX NOT GIVEN. PT NOT IN ROOM
[2018-10-04 07:12] LABS: Magnesium 2.1 mg/dL (1.6-2.6)
--- NOTE | 2018-10-04 07:50 | NUR ---
Opening Shift Note Assumed care of patient, awake and alert. No S/S of distress/SOB or pain. Patient states she was not able to sleep for past 48 hours. Instructed on POC and to call for assist PRN, will continue to monitor for changes Q1hr and PRN.
--- NOTE | 2018-10-04 07:56 | NUR ---
Paged Dr. Steven re: patient requesting medication to help her sleep, patient complained she did not sleep for past 48 hours and she really wanted to sleep. Patient states she is taking Ativan at home.
[2018-10-04] MEDS: methylPREDNISolone SOD SUCC 40 MG/ML VL IV SCH ×3 (09:40→22:01)
[2018-10-04] MEDS: LEVETIRACETAM 500 MG TAB PO SCH ×2 (09:41→22:02)
[2018-10-04] MEDS: amLODIPine BESYLATE 5 MG TAB PO SCH (09:42)
[2018-10-04] MEDS: LISINOPRIL 5 MG TAB PO SCH (09:43)
[2018-10-04] MEDS: guaiFENesin-CODEINE LIQUID 5 ML UD PO PRN (09:52)
[2018-10-04 10:00] VITALS: BP 156/92
[2018-10-04] MEDS ORDERED: PNEUMOCOCCAL VACC POLYS 25 MCG/0.5 ML VIAL IM ONE (10:00)
[2018-10-04] MEDS ORDERED: PANTOPRAZOLE 40 MG/10 ML VIAL IV SCH (10:00)
[2018-10-04] MEDS ORDERED: INFLUENZA QUAD 2018-2019 0.5 ML SYRG IM ONE (10:00)
[2018-10-04] MEDS ORDERED: POTASSIUM CHL 20 Meq TABLET PO ONE (12:00)
[2018-10-04] MEDS ORDERED: FUROSEMIDE 40 MG/4 ML VIAL IV ONE (12:00)
--- NOTE | 2018-10-04 12:15 | NUR ---
Dr. Ashley at bedside.
[2018-10-04 12:52] LABS: Free T4 (Free Thyroxine) 1.12 ng/dL (0.89-1.76)
[2018-10-04 12:54] LABS: Free T3 2.6 pg/mL (2.3-4.2)
[2018-10-04 13:00] VITALS: BP 154/81
[2018-10-04] MEDS: LORazepam 0.5 MG TAB PO PRN ×2 (13:01→22:28)
--- NOTE | 2018-10-04 13:57 | NUR ---
Respiratory note: SCHEDULED MED NEB TX NOT GIVEN. PT REUSED, NO RESP DISTRESS NOTED. PT STATED SHE HAD TO STEP OUTSIDE TO MAKE A PHONE CALL. PT IS AWARE OF NEXT SCHEDULED TX.
[2018-10-04] MEDS: BRIMONIDINE 0.2% OPTH Soln 5ml LEFTEYE SCH ×2 (14:25→22:05)
[2018-10-04] MEDS: BRIMONIDINE 0.2% OPTH Soln 5ml RIGHTEYE SCH ×2 (14:25→22:06)
[2018-10-04] MEDS ORDERED: ALBUTEROL SULF 2.5 MG/0.5ML(0.5%) NEB SOLN NEB SCH (16:00)
[2018-10-04] MEDS ORDERED: IPRATROPIUM BROM 0.5 MG/2.5ML INH SOL NEB SCH (16:00)
--- NOTE | 2018-10-04 16:00 | NUR ---
Patient moved to 231.
[2018-10-04] MEDS: ONDANSETRON HCL 4 MG/2 ML VIAL IV PRN (16:22)
[2018-10-04] MEDS: LEVOFLOXACIN 750MG 150 ML IV SCH (16:33)
[2018-10-04] MEDS: LACTULOSE 20Gm/30ML SOLN PO PRN (16:34)
[2018-10-04 18:27] VITALS: BP 160/71
--- NOTE | 2018-10-04 19:06 | NUR ---
Closing note Patient resting in bed, no signs of respiratory distress.
--- NOTE | 2018-10-04 19:10 | NUR ---
Opening Shift Note Assumed care of patient from day shift RN Car. Pt is awake and alert and oriented x4. Pt on 2L NC, respirations even equal and unlabored. No S/S of distress/SOB or pain. Safety maintained with bed rails upx2, locked and in lowest position with call frias within reach. Instructed on POC and to call for assist PRN, will continue to monitor for changes Q1hr and PRN.
[2018-10-04 21:27] VITALS: BP 119/58
[2018-10-04] MEDS: DORZOLAMIDE HCL 2% OPTH(EYE) SOL 10ML LEFTEYE SCH (22:02)
[2018-10-04] MEDS: NETARSUDIL 0.02% RIGHTEYE SCH (22:02)
[2018-10-04] MEDS: LATANOPROST 0.005 % OPTH(EYE) SOL 2.5ML RIGHTEYE SCH (22:08)
[2018-10-04] MEDS: LATANOPROST 0.005 % OPTH(EYE) SOL 2.5ML LEFTEYE SCH (22:08)
[2018-10-05 05:49] VITALS: BP 114/54
[2018-10-05] MEDS: BRIMONIDINE 0.2% OPTH Soln 5ml RIGHTEYE SCH ×3 (05:52→22:16)
[2018-10-05] MEDS: methylPREDNISolone SOD SUCC 40 MG/ML VL IV SCH ×3 (05:52→21:15)
[2018-10-05] MEDS: BRIMONIDINE 0.2% OPTH Soln 5ml LEFTEYE SCH ×3 (05:52→21:16)
[2018-10-05] MEDS: MORPHINE SULF INJ 2 MG/ML SYRINGE 1ML IV PRN ×2 (05:54→11:23)
[2018-10-05] MEDS: IPRATROPIUM BROM 0.5 MG/2.5ML INH SOL NEB SCH ×5 (06:41→22:47)
[2018-10-05] MEDS: ALBUTEROL SULF 2.5 MG/0.5ML(0.5%) NEB SOLN NEB SCH ×5 (06:41→22:47)
--- NOTE | 2018-10-05 07:01 | NUR ---
PT OFF UNIT AMA SIGNED FOR PATIENT TO GO OUTSIDE. PT STATES SHE NEEDS TO MAKE PRIVATE PHONE CALL TO . PT OFF UNIT AT THIS TIME.
[2018-10-05 08:00] VITALS: BP 144/88
[2018-10-05] MEDS: HYDROcodone-ACET 5/325MG TAB PO PRN (08:21)
--- NOTE | 2018-10-05 08:41 | NUR ---
Opening Note Assumed pt care in AM. Pt is A/O x4. Pt is on NC 2L. No SOB noted. Pt is laying in bed with safety rails up. Pt stated she was in pain due to a PARDO and throbbing pain in legs, 01/27. Lungs are clear and nonlabored. Discussed pt POC and any questions. Instructed her to call for any assistance. Will continue to monitor for changes Q1hr and PRN
[2018-10-05] MEDS: FUROSEMIDE 40 MG/4 ML VIAL IV SCH (09:57)
[2018-10-05] MEDS: amLODIPine BESYLATE 5 MG TAB PO SCH (09:58)
[2018-10-05] MEDS: LEVETIRACETAM 500 MG TAB PO SCH ×2 (09:58→21:16)
[2018-10-05] MEDS: PANTOPRAZOLE 40 MG TAB PO SCH (09:59)
[2018-10-05] MEDS: LISINOPRIL 5 MG TAB PO SCH (09:59)
[2018-10-05] MEDS: POTASSIUM CHL 20 Meq TABLET PO SCH (10:00)
[2018-10-05] MEDS: LORazepam 0.5 MG TAB PO PRN ×2 (10:49→17:32)
[2018-10-05] MEDS: BUDESONIDE (INHALATION) 0.5 MG/2 ML NEB NEB SCH ×2 (10:54→22:48)
[2018-10-05] MEDS: ONDANSETRON HCL 4 MG/2 ML VIAL IV PRN (11:22)
[2018-10-05] MEDS: NITROGLYCERIN 0.4 MG SL TAB SL PRN ×2 (12:23→12:30)
[2018-10-05 12:30] VITALS: BP 151/92
--- NOTE | 2018-10-05 12:46 | NUR ---
PT C/O CHEST PAIN C/O 8/10 LEFT SIDED CHEST PAIN, RADIATING TO LEFT ARM. ACCOMPANIED BY SOB. PATIENT DIAPHORETIC. PATIENT PLACED ON 2LNC. VITAL SIGNS: 131/56, HR 109, SATURATING 98%, RR 18. INFORMED DR. CARD ON UNIT OF PATIENT COMPLAINTS. ORDERS RECEIEVED FOR STAT EKG. EKG COMPLETED, SHOWING SINUS TACHYCARDIA [address]/T WAVE ABDNORMALITY. EKG SHOWN TO DR. CARD AND SIGNED. CHEST PAIN PROTOCOL INITIATED. NITROGLYCERIN ADMINISTERED SL X 2 AND MORPHINE ADMINISTERED X 1. PATIENT BECAME HYPOTENSIVE, VITALS BP 95/59, HR 109, SATURATING 91%, RR 18. INFORMED DR. CRAD. MD ARRIVED TO BEDSIDE TO ASSESS PATIENT. MD PLACING ORDERS FOR CT CHEST AND MIDLINE PLACEMENT. RECEIVED PHONE CALL FROM RADIOLOGY, STATING CT CANNOT BE COMPLETED AT THIS TIME R/T PATIENT RECENTLY EATING. MD AWARE. MD REQUESTING LOVENOX BE ADMINISTERED AT THIS TIME. WILL CARRY OUT.
[2018-10-05] MEDS ORDERED: ENOXAPARIN SOD 120 MG/0.8 ML SYRINGE SC ONE (13:00)
--- NOTE | 2018-10-05 13:19 | NUR ---
Midline Placement Patient educated on need for midline placement. All risks and benefits explained and all questions and concerns addresses prior to procedure. 18g/10cm midline inserted via right basilic vein using Ultrasound. Sterile technique utilized. Blood return obtained from single lumen and flushed easily with NS using proper technique. Midline secured with saline lock; biodisc and occlusive dressing applied. Primary RN notified. Midline lot #[id number].
--- NOTE | 2018-10-05 13:50 | NUR ---
PAGED 1400 MEDICATIONS ADMINISTERED AT THIS TIME. PATIENT ORIGINALLY SEEN RESTING IN BED, EYES CLOSED, EVEN RISE AND FALL OF CHEST. NO OBSERVABLE S/S OF PAIN. PATIENT EASILY AWOKE TO NAME. PT CONTINUES TO C/O 'NOT FEELING GOOD'. INQUIRED TO WHAT PATIENT MEANT BY THAT STATEMENT. PT STATING, 'I NEED MY ATIVAN...I TAKE IT EVERY 4 HOURS AT HOME WITH RESTORIL'. INFORMED PT THAT ATIVAN NOT DUE AT THIS TIME, BUT MD COULD BE CONTACTED FOR FURTHER ORDERS. DR. CARD PAGED. WAITING ON RESPONSE.
[2018-10-05] MEDS ORDERED: LORazepam 2MG/ML-1ML VIAL IV ONE (14:30)
--- NOTE | 2018-10-05 14:30 | NUR ---
RETURNED PAGE DR. CARD RETURNED PAGE. UPDATED ON PT STATUS AND PT REPORTS OF ANXIETY AND REQUEST FOR INCREASED ATIVAN DOSE. ORDERS RECEIVED FOR ATIVAN 1MG IV X 1.
[2018-10-05] MEDS ORDERED: IOHEXOL 350 MG/ML 100ML IJ ONE (15:41)
--- NOTE | 2018-10-05 15:59 | NUR ---
OFF UNIT PT TAKEN OFF UNIT VIA WC TO RADIOLOGY. NO DISTRESS NOTED AT TIME OF DEPARTURE.
--- NOTE | 2018-10-05 16:16 | NUR ---
RETURNED TO UNIT PT RETURNED TO UNIT FROM RADIOLOGY.
--- NOTE | 2018-10-05 16:52 | NUR ---
CARDIOLOGY CONSULT DR. CRISTINA ON UNIT FOR CONSULT. ORDERS RECEIVED FOR STRESS TEST. ADDITIONAL ORDERS RECEIVED TO CHANGE PATIENTS CURRENT ATIVAN DOSAGE TO A FREQUENCY OF Q4H PRN. NO CHANGE TO DOSE. NO FURTHER ORDERS RECEIVED AT THIS TIME.
[2018-10-05 16:55] VITALS: BP 139/83
[2018-10-05] MEDS: guaiFENesin-CODEINE LIQUID 5 ML UD PO PRN (17:33)
--- NOTE | 2018-10-05 19:10 | NUR ---
Opening Shift Note Received report from PARTHA Ross and assumed care of patient, awake and alert. No S/S of distress/SOB or pain. Instructed patient to call for assist if needed and verbalized understanding. Will continue to monitor .
[2018-10-05] MEDS: ENOXAPARIN SOD 120 MG/0.8 ML SYRINGE SC SCH (21:15)
[2018-10-05] MEDS: METOPROLOL TARTRATE 25 MG TAB PO SCH (21:16)
[2018-10-05] MEDS: LATANOPROST 0.005 % OPTH(EYE) SOL 2.5ML LEFTEYE SCH ×2 (21:17→22:15)
[2018-10-05 22:00] VITALS: BP 142/79
[2018-10-05] MEDS: DORZOLAMIDE HCL 2% OPTH(EYE) SOL 10ML LEFTEYE SCH (22:10)
[2018-10-05] MEDS: NETARSUDIL 0.02% RIGHTEYE SCH (22:13)
[2018-10-05] MEDS: LATANOPROST 0.005 % OPTH(EYE) SOL 2.5ML RIGHTEYE SCH (22:16)
--- NOTE | 2018-10-05 22:27 | NUR ---
Respiratory note: PT PLACED ON MED NEB TX AND PT TOOK MASK OFF AND STATED SHE DID NOT WANT TREATMENT. NO RESPIRATORY DISTRESS NOTED, SITTER AT BEDSIDE. WILL CONTINUE TO MONITOR.
[2018-10-06] VITALS (7 sets, daily range): BP systolic 118–173; BP diastolic 60–98
[2018-10-06] MEDS: guaiFENesin-CODEINE LIQUID 5 ML UD PO PRN (01:26)
[2018-10-06] MEDS: LORazepam 0.5 MG TAB PO PRN ×5 (01:28→22:30)
[2018-10-06] MEDS: LACTULOSE 20Gm/30ML SOLN PO PRN (01:28)
[2018-10-06] MEDS: IPRATROPIUM BROM 0.5 MG/2.5ML INH SOL NEB SCH ×6 (02:44→21:58)
[2018-10-06] MEDS: ALBUTEROL SULF 2.5 MG/0.5ML(0.5%) NEB SOLN NEB SCH ×6 (02:44→21:58)
--- NOTE | 2018-10-06 04:35 | NUR ---
Ambulation: Patient OOB independently. Ambulated to bathroom with steady gait. Able to void without difficulty. Patient ambulated back to bed but having SOB noted.O2 2 L/min applied. [place] 5/325 1 tab given for pain in her head.Will continue to monitor.
[2018-10-06] MEDS: HYDROcodone-ACET 5/325MG TAB PO PRN ×2 (04:39→21:59)
[2018-10-06] MEDS: methylPREDNISolone SOD SUCC 40 MG/ML VL IV SCH ×3 (05:37→22:00)
[2018-10-06] MEDS: BRIMONIDINE 0.2% OPTH Soln 5ml LEFTEYE SCH ×3 (05:37→22:00)
--- NOTE | 2018-10-06 06:10 | NUR ---
Patient leave the floor Against Medical Advice (AMA) to go outside. Patient encouraged to stay on floor but patient insist to go out . Patient advised of the risks and benefits of leaving AMA. Patient verbalized understanding.
[2018-10-06] MEDS: BUDESONIDE (INHALATION) 0.5 MG/2 ML NEB NEB SCH ×2 (06:24→21:58)
[2018-10-06] MEDS: BRIMONIDINE 0.2% OPTH Soln 5ml RIGHTEYE SCH ×3 (07:13→21:59)
--- NOTE | 2018-10-06 08:00 | NUR ---
RECEIVED PT RESTING IN BED, SLEEPING COMFORTABLY, CALL LIGHT WITH IN REACH, WILL CONTINUE TO MONITOR PT.
[2018-10-06] MEDS ORDERED: ADENOSINE 101 MG in GIVE UN-DILUTED 0 ML IV ONE (08:30)
--- NOTE | 2018-10-06 09:40 | NUR ---
Pt taken to stress lab.
--- NOTE | 2018-10-06 10:30 | NUR ---
RT NOTE: RN PAGED TO INFORM ME THAT PT WAS TAKEN DOWN TO STRESS LAB AND THAT THEY WOULD BE GIVING HER 1000 TX. WILL CONTINUE TO MONITOR.
--- NOTE | 2018-10-06 10:55 | NUR ---
SEIZURE 30 second into stress test the patient had a 15-20 second seizure. She woke up right away from it. The test was ended and patient taken back to her room.
--- NOTE | 2018-10-06 11:00 | NUR ---
Pt back in the room from stress lab.
[2018-10-06] MEDS ORDERED: DOBUTamine 1000MCG/ML 100 ML IV ONE (11:14)
[2018-10-06] MEDS: FUROSEMIDE 40 MG/4 ML VIAL IV SCH (11:20)
[2018-10-06] MEDS: LEVETIRACETAM 500 MG TAB PO SCH ×2 (11:21→22:01)
[2018-10-06] MEDS: LEVOFLOXACIN 500 MG TAB PO SCH (11:21)
[2018-10-06] MEDS: POTASSIUM CHL 20 Meq TABLET PO SCH (11:21)
[2018-10-06] MEDS: ENOXAPARIN SOD 120 MG/0.8 ML SYRINGE SC SCH (11:22)
[2018-10-06] MEDS: amLODIPine BESYLATE 5 MG TAB PO SCH (11:22)
[2018-10-06] MEDS: METOPROLOL TARTRATE 25 MG TAB PO SCH ×2 (11:22→22:01)
[2018-10-06] MEDS: PANTOPRAZOLE 40 MG TAB PO SCH (11:23)
--- NOTE | 2018-10-06 11:25 | NUR ---
Dr. Avalos / cardiology at bed side to see pt. As per doctor pt will go back today to do the stress test.
[2018-10-06 11:58] LABS: Potassium 3.8 mmol/L (3.5-5.1)
[2018-10-06 12:01] LABS: Calcium 9.1 mg/dL (8.5-10.1)
[2018-10-06] MEDS: ACETAMINOPHEN 500 MG TAB PO PRN (13:06)
--- NOTE | 2018-10-06 13:48 | NUR ---
RT NOTE: PT REFUSED TX AT THIS TIME. STATING SHE WAS GIVEN ONE ABOUT AN HOUR AGO WHILE DOWN HAVING A STRESS TEST DONE. NO SIGNS OF RESPIRATORY DISTRESS NOTED. LUNG SOUNDS CLEAR T/O. ON RA SPO2 92 HR 77 RR 16. WILL CONTINUE TO MONITOR.
[2018-10-06] MEDS ORDERED: MORPHINE SULF INJ 2 MG/ML SYRINGE 1ML IV PRN ×2 (14:45→15:00)
--- NOTE | 2018-10-06 14:54 | NUR ---
Call to inquire of the time of the stress test, spoke to mobile lab technician, as per tech the stress test will be done until Tuesday and Dr. Avalos is aware of it.
--- NOTE | 2018-10-06 18:51 | NUR ---
PT REFUSED SCHEDULED MED NEB TX AT THIS TIME. PT STATED SHE WILL TAKE THE NEXT ONE. PT ALERT AND ON ROOM AIR WITH NO DISTRESS NOTED.
[2018-10-06] MEDS: LATANOPROST 0.005 % OPTH(EYE) SOL 2.5ML RIGHTEYE SCH (21:59)
[2018-10-06] MEDS: LATANOPROST 0.005 % OPTH(EYE) SOL 2.5ML LEFTEYE SCH (21:59)
[2018-10-06] MEDS: NETARSUDIL 0.02% RIGHTEYE SCH (22:00)
[2018-10-06] MEDS: DORZOLAMIDE HCL 2% OPTH(EYE) SOL 10ML LEFTEYE SCH (22:01)
--- NOTE | 2018-10-06 22:30 | NUR ---
BED ALARM ON
[2018-10-07] MEDS: ALBUTEROL SULF 2.5 MG/0.5ML(0.5%) NEB SOLN NEB SCH ×6 (02:00→22:02)
[2018-10-07] MEDS: IPRATROPIUM BROM 0.5 MG/2.5ML INH SOL NEB SCH ×6 (02:00→22:02)
[2018-10-07 05:03] VITALS: BP 155/89
[2018-10-07] MEDS: BRIMONIDINE 0.2% OPTH Soln 5ml LEFTEYE SCH ×3 (05:52→22:15)
[2018-10-07] MEDS: BRIMONIDINE 0.2% OPTH Soln 5ml RIGHTEYE SCH ×3 (05:52→22:16)
[2018-10-07] MEDS: BUDESONIDE (INHALATION) 0.5 MG/2 ML NEB NEB SCH ×2 (06:56→18:19)
[2018-10-07 08:00] VITALS: BP 173/98
[2018-10-07 08:37] VITALS: BP 159/80
[2018-10-07] MEDS: LEVETIRACETAM 500 MG TAB PO SCH ×2 (09:35→21:55)
[2018-10-07] MEDS: LEVOFLOXACIN 500 MG TAB PO SCH (09:35)
[2018-10-07] MEDS: FUROSEMIDE 40 MG/4 ML VIAL IV SCH (09:36)
[2018-10-07] MEDS: amLODIPine BESYLATE 5 MG TAB PO SCH (09:36)
[2018-10-07] MEDS: ENOXAPARIN SOD 40 MG/0.4 ML SYRINGE SC SCH (09:37)
[2018-10-07] MEDS: methylPREDNISolone SOD SUCC 40 MG/ML VL IV SCH ×2 (09:37→21:54)
[2018-10-07] MEDS: METOPROLOL TARTRATE 25 MG TAB PO SCH ×2 (09:43→21:55)
[2018-10-07] MEDS: PANTOPRAZOLE 40 MG TAB PO SCH (09:44)
[2018-10-07] MEDS: LORazepam 0.5 MG TAB PO PRN ×2 (09:44→22:37)
[2018-10-07] MEDS: POTASSIUM CHL 20 Meq TABLET PO SCH (09:44)
[2018-10-07 12:07] VITALS: BP 154/79
--- NOTE | 2018-10-07 12:24 | NUR ---
Nutrition Assessment Notes please see attached link for complete assessment Est. Needs ABW [id number] kcal (20-23 kcal/kgBW), 88-96 gms pro (1.0-1.1 gms/kgBW). Will continue to monitor pertinent labs and reassess nutrient need prn Addendum: 10/07/18 at [address] Amended: Links added.
[2018-10-07] MEDS ORDERED: AZITHROMYCIN 250 MG TAB PO ONE (13:45)
[2018-10-07] MEDS: HYDROcodone-ACET 5/325MG TAB PO PRN (15:55)
[2018-10-07 16:12] VITALS: BP 150/85
[2018-10-07] MEDS: guaiFENesin-CODEINE LIQUID 5 ML UD PO SCH ×2 (17:34→21:56)
--- NOTE | 2018-10-07 18:00 | NUR ---
Pt alert and oriented, showing no change from initial assessment. Pt very anxious at times. Ativan given with good effectiveness. Pt c/o "just not feeling well". Pt denies chest pain. No resp distress. [place] given, times one, during this shift for c/o generalized "pain all over". with good effectiveness. Midline IV access site patent, site clear to right upper arm.
--- NOTE | 2018-10-07 19:15 | NUR ---
RECEIVED PATIENT LYING IN BED, AWAKE, ALERT, ORIENTED X4. NO S/S OF RESPIRATORY DISTRESS, DENIES SOB AND CHEST PAIN. ORIENTED ON PLAN OF CARE. BED IS LOCKED AND IN LOWEST LEVEL, SIDE RAILS UP X2, PADDED, BED ALARM ON, CALL LIGHT WITHIN REACH. WILL CONTINUE TO MONITOR
[2018-10-07] MEDS: ONDANSETRON HCL 4 MG/2 ML VIAL IV PRN (20:30)
[2018-10-07] MEDS: LACTULOSE 20Gm/30ML SOLN PO PRN (20:34)
[2018-10-07 22:00] VITALS: BP 141/67
[2018-10-07] MEDS: LATANOPROST 0.005 % OPTH(EYE) SOL 2.5ML LEFTEYE SCH ×2 (22:12→22:16)
[2018-10-07] MEDS: NETARSUDIL 0.02% RIGHTEYE SCH (22:13)
[2018-10-07] MEDS: DORZOLAMIDE HCL 2% OPTH(EYE) SOL 10ML LEFTEYE SCH (22:14)
[2018-10-07] MEDS: LATANOPROST 0.005 % OPTH(EYE) SOL 2.5ML RIGHTEYE SCH (22:17)
[2018-10-08] VITALS (7 sets, daily range): BP systolic 109–163; BP diastolic 57–96
[2018-10-08] MEDS: ALBUTEROL SULF 2.5 MG/0.5ML(0.5%) NEB SOLN NEB SCH ×6 (02:01→22:00)
[2018-10-08] MEDS: IPRATROPIUM BROM 0.5 MG/2.5ML INH SOL NEB SCH ×5 (02:01→22:00)
[2018-10-08 05:45] LABS: Basophils # (auto) 0 uL; Basophils % (auto) 0.3 % (0.0-2.0); Eosinophils # (auto) 0 uL; Hematocrit 39.7 % (36.0-46.0); Hemoglobin 13.1 g/dL (12.2-16.2); Lymphocytes # (auto) 0.9 uL; Lymphocytes % (auto) 7.6 % (10.0-50.0); Mean Corpuscular Hemoglobin 31.9 pg (28.0-32.0); Mean Corpuscular Volume 96.5 fL (80.0-100.0); Monocytes # (auto) 0.6 uL; Monocytes % (auto) 5.4 % (0.0-12.0); Neutrophils # (auto) 10.4 uL; Neutrophils % (auto) 86.7 % (37.0-80.0); Nucleated Red Blood Cells % 0.1 %; Platelet Count (auto) 192 10^3/uL (140-450); Red Blood Cells 4.11 10^6/uL (4.0-5.20); Red Cell Distribution Width 14.7 % (11.8-14.3)
[2018-10-08 05:59] LABS: Anion Gap 8 (5-15); Blood Urea Nitrogen 31 mg/dL (7-18); Calcium 8.6 mg/dL (8.5-10.1); Carbon Dioxide 26 mmol/L (21-32); Chloride 107 mmol/L (98-107); Glucose 186 mg/dL (74-106); Potassium 4.1 mmol/L (3.5-5.1); Sodium 141 mmol/L (136-145)
[2018-10-08 06:03] LABS: BUN/Creatinine Ratio 34.8; GFR African American 82 mL/min; GFR Non-African American 68 mL/min
[2018-10-08] MEDS: BRIMONIDINE 0.2% OPTH Soln 5ml LEFTEYE SCH ×3 (06:04→22:29)
[2018-10-08] MEDS: BRIMONIDINE 0.2% OPTH Soln 5ml RIGHTEYE SCH ×3 (06:04→22:30)
[2018-10-08] MEDS: HYDROcodone-ACET 5/325MG TAB PO PRN ×3 (06:05→20:45)
[2018-10-08] MEDS: guaiFENesin-CODEINE LIQUID 5 ML UD PO SCH ×4 (06:24→22:20)
[2018-10-08] MEDS: BUDESONIDE (INHALATION) 0.5 MG/2 ML NEB NEB SCH ×2 (06:24→22:00)
--- NOTE | 2018-10-08 07:15 | NUR ---
CARE ENDORSED TO AM SHIFT RN
[2018-10-08] MEDS: methylPREDNISolone SOD SUCC 40 MG/ML VL IV SCH ×2 (09:41→22:21)
[2018-10-08] MEDS: FUROSEMIDE 40 MG/4 ML VIAL IV SCH (09:41)
[2018-10-08] MEDS: LEVOFLOXACIN 500 MG TAB PO SCH (09:42)
[2018-10-08] MEDS: LEVETIRACETAM 500 MG TAB PO SCH ×2 (09:42→22:20)
[2018-10-08] MEDS: AZITHROMYCIN 250 MG TAB PO SCH (09:42)
[2018-10-08] MEDS: PANTOPRAZOLE 40 MG TAB PO SCH (09:43)
[2018-10-08] MEDS: ENOXAPARIN SOD 40 MG/0.4 ML SYRINGE SC SCH (09:43)
[2018-10-08] MEDS: POTASSIUM CHL 20 Meq TABLET PO SCH (09:43)
[2018-10-08] MEDS: LORazepam 0.5 MG TAB PO PRN ×3 (09:44→22:27)
[2018-10-08] MEDS: METOPROLOL TARTRATE 25 MG TAB PO SCH ×2 (10:00→22:00)
[2018-10-08] MEDS: amLODIPine BESYLATE 5 MG TAB PO SCH (10:00)
--- NOTE | 2018-10-08 10:00 | NUR ---
Scheduled anti-hypertensive medications not given at this time due to low B/P of 109/57. Pt informed. Pt denies pain or discomfort at this time.
--- NOTE | 2018-10-08 14:26 | NUR ---
PT. REFUSED [place]. TX. AT THIS TIME. PT. STATES SHE WILL TAKE THE NEXT TX. , NO RESP. DISTRESS NOTED, PT. TRYING TO SLEEP AT THIS TIME, WILL SEE PT. NEXT SCHEDULED TIME. PT. IS AWARE SHE MAY CALL IF NEEDED.
--- NOTE | 2018-10-08 16:30 | NUR ---
Pt extremely anxious. B/P 132/67 pulse 83 Resp 22 O2 saturation at 95%. Ativan given at this time. Relaxation techniques encouraged.
--- NOTE | 2018-10-08 18:00 | NUR ---
Pt much calmer, comfortable. Pt is visiting with family. Pt denies pain or discomfort at this time.
--- NOTE | 2018-10-08 18:49 | NUR ---
PT NOT NOT IN ROOM AND NOT AT PROCEDURE AT THIS TIME. PT UNAVAILABLE FOR MED NEB TX.
[2018-10-08] MEDS: LATANOPROST 0.005 % OPTH(EYE) SOL 2.5ML RIGHTEYE SCH (22:00)
[2018-10-08] MEDS: LATANOPROST 0.005 % OPTH(EYE) SOL 2.5ML LEFTEYE SCH (22:00)
[2018-10-08] MEDS: NETARSUDIL 0.02% RIGHTEYE SCH (22:00)
[2018-10-08] MEDS: DORZOLAMIDE HCL 2% OPTH(EYE) SOL 10ML LEFTEYE SCH (22:00)
--- NOTE | 2018-10-08 22:00 | NUR ---
METOPROLOL(BETA JANIYA)HELD, PATIENT SCHEDULED FOR CARDIOLITE STRESS TEST IN AM.
--- NOTE | 2018-10-08 22:00 | NUR ---
PATIENT REFUSED 2200 SCHEDULED EYE DROPS. PATIENT STATES SHE ONLY WANTS TO TAKE ONE EYE MEDICATION TONIGHT (BRIMONIDINE).
--- NOTE | 2018-10-08 22:35 | NUR ---
RT NOTE: PT REFUSED SCHEDULED MED NEB TX, STATED SHE IS TO TIRED TO TAKE TX A THIS TIME. DENIES SOB. PT ON ROOM AIR SPO2 94%. NO TX GIVEN AT THIS TIME. PT NOTIFIED TO HAVE RT PAGED IF SOB OCCURS
[2018-10-09] MEDS: ALBUTEROL SULF 2.5 MG/0.5ML(0.5%) NEB SOLN NEB SCH ×6 (02:00→22:00)
[2018-10-09] MEDS: IPRATROPIUM BROM 0.5 MG/2.5ML INH SOL NEB SCH ×6 (02:00→22:00)
[2018-10-09 04:33] VITALS: BP 148/96
[2018-10-09] MEDS: BRIMONIDINE 0.2% OPTH Soln 5ml RIGHTEYE SCH ×3 (05:46→22:19)
[2018-10-09] MEDS: guaiFENesin-CODEINE LIQUID 5 ML UD PO SCH ×4 (05:46→22:15)
[2018-10-09] MEDS: BRIMONIDINE 0.2% OPTH Soln 5ml LEFTEYE SCH ×3 (05:46→22:19)
--- NOTE | 2018-10-09 05:52 | NUR ---
IV insertion IV access obtained, via clean sterile technique by inserting 22 gauge catheter at Left Wrist after 1 attempt. IV secured properly. No trauma to site. Patient tolerated well. NOTE: Secondary Iv inserted for stress test. IV inserted by Kayli CHAVIS.
[2018-10-09 05:57] LABS: Hematocrit 41.5 % (36.0-46.0); Hemoglobin 13.8 g/dL (12.2-16.2); Mean Corpuscular Hemoglobin 32.2 pg (28.0-32.0); Mean Corpuscular Hgb Conc. 33.2 g/dL (32.0-36.0); Platelet Count (auto) 203 10^3/uL (140-450); Red Blood Cells 4.28 10^6/uL (4.0-5.20); Red Cell Distribution Width 14.9 % (11.8-14.3); White Blood Cell 14.6 10^3/uL (4.4-10.8)
[2018-10-09] MEDS: BUDESONIDE (INHALATION) 0.5 MG/2 ML NEB NEB SCH ×2 (06:03→22:00)
[2018-10-09 06:09] LABS: Potassium 4.4 mmol/L (3.5-5.1)
[2018-10-09 06:11] LABS: Calcium 8.4 mg/dL (8.5-10.1)
[2018-10-09 06:15] LABS: BUN/Creatinine Ratio 39.5
[2018-10-09 06:23] LABS: Basophils % (manual) 0 (0.0-2.0); Blast Cells 0; Eosinophils % (manual) 0 (0-7); Metamyelocytes % 0; Myelocytes % 0; Promyelocytes % 0; Reactive Lymphocytes 0
--- NOTE | 2018-10-09 07:24 | NUR ---
PAGED HOSPITALIST FOR PRN SEIZURE MEDICATION, AWAITING CALL BACK.
--- NOTE | 2018-10-09 07:30 | NUR ---
OPENING NOTE PATIENT SITTING AT BEDSIDE NO S/S OF DISTRESS. STATED SHE WOULD LIKE HER VACCINES UPON DISCHARGE. PATIENT NPO SINCE MIDNIGHT PENDING STRESS TEST TODAY. WILL CONTINUE CARE.
[2018-10-09] MEDS: HYDROcodone-ACET 5/325MG TAB PO PRN ×2 (07:35→22:24)
--- NOTE | 2018-10-09 08:09 | NUR ---
RE-PAGED HOSPITALIST FOR PRN SEIZURE MEDICATION, AWAITING CALL BACK.
[2018-10-09 08:33] LABS: Band Neutrophils % (manual) 2; Lymphocytes % (manual) 16 (10.0-50.0); Monocytes % (manual) 1 (0-12)
[2018-10-09] MEDS ORDERED: ADENOSINE 99 MG in GIVE UN-DILUTED 0 ML IV STA (08:36)
--- NOTE | 2018-10-09 08:40 | NUR ---
SPOKE WITH MADY IN STRESS LAB ASKED TO PRETREAT PATIENT WITH ANXIETY PO MEDICATION BEFORE PROCEDURE. ASSESSED PATIENT NEED FOR ATIVAN, ATIVAN GIVEN AT THIS TIME. WILL CONTINUE TO MONITOR.
--- NOTE | 2018-10-09 08:40 | NUR ---
SPOKE WITH HOSPITALISTBLACK NEW ORDERS GIVEN FOR PRN SEIZURE MEDICATION, SEE ORDERS. WILL CONTINUE CARE.
[2018-10-09 08:44] VITALS: BP_SYST 12; BP_SYST 152; BP_DIAS 86
[2018-10-09] MEDS ORDERED: LORazepam 2MG/ML-1ML VIAL IV PRN (08:45)
[2018-10-09] MEDS: LORazepam 0.5 MG TAB PO PRN ×2 (08:52→20:35)
[2018-10-09] MEDS: LEVETIRACETAM 500 MG TAB PO SCH ×2 (09:44→22:14)
[2018-10-09] MEDS: ENOXAPARIN SOD 40 MG/0.4 ML SYRINGE SC SCH ×2 (09:45→13:11)
--- NOTE | 2018-10-09 11:00 | NUR ---
PATIENT DOWN TO STRESS TEST. DONTE INFORMED.
[2018-10-09 11:30] VITALS: BP 137/69
[2018-10-09] MEDS ORDERED: AML5T PO (11:48)
[2018-10-09] MEDS ORDERED: MET25T PO (11:55)
[2018-10-09 12:48] VITALS: BP 143/66
--- NOTE | 2018-10-09 12:50 | NUR ---
CONFIRMED PATIENT STRESS TEST COMPLETE. PER MD PATIENT MAY EAT. WILL CONTINUE CARE.
--- NOTE | 2018-10-09 12:53 | NUR ---
CALLED DIETARY FOR FOOD TRAY. CONTINUE CARE.
[2018-10-09] MEDS: methylPREDNISolone SOD SUCC 40 MG/ML VL IV SCH ×2 (13:08→22:15)
[2018-10-09] MEDS: POTASSIUM CHL 20 Meq TABLET PO SCH (13:09)
[2018-10-09] MEDS: AZITHROMYCIN 250 MG TAB PO SCH (13:10)
[2018-10-09] MEDS: LEVOFLOXACIN 500 MG TAB PO SCH (13:10)
[2018-10-09] MEDS: PANTOPRAZOLE 40 MG TAB PO SCH (13:10)
[2018-10-09] MEDS: METOPROLOL TARTRATE 25 MG TAB PO SCH ×2 (13:20→22:14)
[2018-10-09] MEDS: FUROSEMIDE 40 MG/4 ML VIAL IV SCH (13:20)
[2018-10-09] MEDS: amLODIPine BESYLATE 5 MG TAB PO SCH (13:20)
--- NOTE | 2018-10-09 13:58 | NUR ---
CALLED DONTE TO INFORM PATIENT IS NOT IN BED AT THIS TIME. PATIENT HAS AMA TO SMOKE. WILL CONTINUE TO MONITOR.
[2018-10-09 16:53] VITALS: BP 117/54
--- NOTE | 2018-10-09 18:01 | NUR ---
RT NOTE: PT REFUSED MED NEB TX AT THIS TIME. PT ON ROOM AIR SPO2 94%, HR 78, RR 18. PT ALERT AND ON PHONE WITH NO DISTRESS. PT STATED SHE WILL TAKE THE NEXT TX.
--- NOTE | 2018-10-09 19:10 | NUR ---
CLOSING NOTE CARE ENDORSED TO HEALTH THERAPIST RN. PATIENT STRESS TEST RESULTS PENDING, RN AWARE.
--- NOTE | 2018-10-09 19:20 | NUR ---
Opening Shift Note Received report from Ne CHAVIS. Assumed care of patient, awake and alert. No S/S of distress/SOB or pain. Instructed on POC and to call for assist PRN. Fall precaution measures in place, will continue to monitor for changes Q1hr and PRN.
[2018-10-09] MEDS: ACETAMINOPHEN 500 MG TAB PO PRN (20:35)
[2018-10-09 22:00] VITALS: BP 134/71
[2018-10-09] MEDS: NETARSUDIL 0.02% RIGHTEYE SCH (22:16)
[2018-10-09] MEDS: DORZOLAMIDE HCL 2% OPTH(EYE) SOL 10ML LEFTEYE SCH (22:16)
[2018-10-09] MEDS: LATANOPROST 0.005 % OPTH(EYE) SOL 2.5ML RIGHTEYE SCH (22:20)
[2018-10-09] MEDS: LATANOPROST 0.005 % OPTH(EYE) SOL 2.5ML LEFTEYE SCH (22:20)
--- NOTE | 2018-10-09 22:35 | NUR ---
PT ONCE AGAIN REFUSED SCHEDULED MED NEB TX, STATED SHE IS TIRED AND WILL TAKE THE MORNING TXS.
--- NOTE | 2018-10-10 01:36 | NUR ---
Patient resting on her right side, no sob or pain, bed alarm on. Continue care.
[2018-10-10] MEDS: IPRATROPIUM BROM 0.5 MG/2.5ML INH SOL NEB SCH ×6 (02:00→22:00)
[2018-10-10] MEDS: ALBUTEROL SULF 2.5 MG/0.5ML(0.5%) NEB SOLN NEB SCH ×6 (02:00→22:00)
[2018-10-10] MEDS: HYDROcodone-ACET 5/325MG TAB PO PRN ×3 (04:25→21:55)
[2018-10-10 05:00] VITALS: BP 149/73
[2018-10-10] MEDS: BRIMONIDINE 0.2% OPTH Soln 5ml LEFTEYE SCH ×3 (06:00→21:56)
[2018-10-10] MEDS: BRIMONIDINE 0.2% OPTH Soln 5ml RIGHTEYE SCH ×3 (06:00→21:56)
[2018-10-10] MEDS: guaiFENesin-CODEINE LIQUID 5 ML UD PO SCH ×4 (06:27→21:56)
--- NOTE | 2018-10-10 07:12 | NUR ---
Patient stable at this time, no sob/distress or pain. Endorsed care to Ne CHAVIS.
[2018-10-10 08:20] VITALS: BP 130/83
--- NOTE | 2018-10-10 08:20 | NUR ---
Family updated on pt status Family of JOE GARRISON updated on patient's status and condition, information given per patient request. All questions and concerns addressed. Family member verbalized understanding.
--- NOTE | 2018-10-10 08:45 | NUR ---
CALLED STRESS LAB FOR TEST RESULTS TECH STATED MD IS READING RESULTS RIGHT NOW. STATED SHE WILL INFORM MD OF NEED FOR RESULTS. WILL CONTINUE CARE.
[2018-10-10] MEDS: BUDESONIDE (INHALATION) 0.5 MG/2 ML NEB NEB SCH ×2 (10:09→22:00)
[2018-10-10] MEDS: POTASSIUM CHL 20 Meq TABLET PO SCH (10:10)
[2018-10-10] MEDS: LEVETIRACETAM 500 MG TAB PO SCH ×2 (10:10→21:55)
[2018-10-10] MEDS: METOPROLOL TARTRATE 25 MG TAB PO SCH ×2 (10:11→21:55)
[2018-10-10] MEDS: AZITHROMYCIN 250 MG TAB PO SCH (10:11)
[2018-10-10] MEDS: LEVOFLOXACIN 500 MG TAB PO SCH (10:11)
[2018-10-10] MEDS: amLODIPine BESYLATE 5 MG TAB PO SCH (10:11)
[2018-10-10] MEDS: methylPREDNISolone SOD SUCC 40 MG/ML VL IV SCH ×2 (10:12→21:56)
[2018-10-10] MEDS: ENOXAPARIN SOD 40 MG/0.4 ML SYRINGE SC SCH (10:12)
[2018-10-10] MEDS: FUROSEMIDE 40 MG/4 ML VIAL IV SCH (10:12)
[2018-10-10] MEDS: PANTOPRAZOLE 40 MG TAB PO SCH (10:12)
[2018-10-10] MEDS: LORazepam 0.5 MG TAB PO PRN ×2 (10:13→15:04)
--- NOTE | 2018-10-10 11:15 | NUR ---
INFORMED MD CARD STRESS TEST HAS NOT BEEN RESULTED. VERBALIZED UNDERSTANDING.
[2018-10-10 11:53] VITALS: BP 154/93
--- NOTE | 2018-10-10 12:00 | NUR ---
CALLED STRESS LAB FOR TEST RESULTS INFORMED TECH RESULTS ARE NOT SHOWING UP IN THE COMPUTER. TECH STATED SHE WILL RETURN CALL. WILL CONTINUE CARE.
--- NOTE | 2018-10-10 13:59 | NUR ---
CALLED STRESS TEST FOR PENDING RESULTS. NO ANSWER. WILL CONTINUE CARE.
--- NOTE | 2018-10-10 14:00 | NUR ---
Respiratory note: SCHEDULED MED NEB TX NOT GIVEN DUE TO PATIENT REFUSAL. PATIENT IS IN NO RESPIRATORY DISTRESS. RT UNABLE TO OTAIN VITAL SIGNS. WILL NOTIFY PARTHA RAMOS AND CONTINUE TO MONITOR. Addendum: 10/10/18 at 1439 by KELLI ARANDA, RT RT PARTHA RAMOS MADE AWARE AT 1430.
--- NOTE | 2018-10-10 14:14 | NUR ---
SPOKE WITH NISHI IN STRESS LAB, STATED TEST WILL BE READ TODAY AT 1700 BY MD ALLEN. WILL CONTINUE CARE.
--- NOTE | 2018-10-10 14:30 | NUR ---
SPOKE WITH MD CRISTINA- PATIENT NOT CLEAR FOR DISCHARGE NEW ORDERS FOR PATIENT TO HAVE HEART CATH TOMORROW. WILL FOLLOW THROUGH WITH NEW ORDERS.
--- NOTE | 2018-10-10 14:40 | NUR ---
INFORMED MD CARD PATIENT IS NOT CLEAR FOR DISCHARGE FROM CARDIAC STANDPOINT, HEART CATH TOMORROW.
[2018-10-10] MEDS ORDERED: MORPHINE SULF INJ 2 MG/ML SYRINGE 1ML IV PRN ×2 (15:30)
[2018-10-10 16:45] VITALS: BP 130/85
--- NOTE | 2018-10-10 18:45 | NUR ---
RT NOTE, PT REFUSED SCHEDULED MED NEB TX, NO DISTRESS NOTED. PT ON ROOM AIR SPO2 95%, HR 80, RR 18. NO TX GIVEN
--- NOTE | 2018-10-10 19:15 | NUR ---
Opening Shift Note Received report from Ne CHAVIS. Assumed care of patient, awake and alert, at bedside. No S/S of distress/SOB or pain. Instructed on POC and to call for assist PRN. Fall precaution measures in place, will continue to monitor for changes Q1hr and PRN.
[2018-10-10] MEDS: NETARSUDIL 0.02% RIGHTEYE SCH (21:56)
[2018-10-10] MEDS: LATANOPROST 0.005 % OPTH(EYE) SOL 2.5ML RIGHTEYE SCH (21:56)
[2018-10-10] MEDS: LATANOPROST 0.005 % OPTH(EYE) SOL 2.5ML LEFTEYE SCH (21:56)
[2018-10-10] MEDS: DORZOLAMIDE HCL 2% OPTH(EYE) SOL 10ML LEFTEYE SCH (21:56)
[2018-10-10 22:00] VITALS: BP 122/75
--- NOTE | 2018-10-10 22:08 | NUR ---
RT NOTE: PT REFUSED SCHEDULED MED NEB TX AGAIN. PT DENIES SOB. PT STATED SHE ISN'T FEELING LIKE TAKING IT. PT WILL CALL IF TX NEEDED
[2018-10-11] MEDS: IPRATROPIUM BROM 0.5 MG/2.5ML INH SOL NEB SCH ×4 (02:00→14:00)
[2018-10-11] MEDS: ALBUTEROL SULF 2.5 MG/0.5ML(0.5%) NEB SOLN NEB SCH ×4 (02:00→14:00)
[2018-10-11 05:00] VITALS: BP 130/64
[2018-10-11] MEDS: BRIMONIDINE 0.2% OPTH Soln 5ml LEFTEYE SCH ×2 (06:04→14:00)
[2018-10-11] MEDS: BRIMONIDINE 0.2% OPTH Soln 5ml RIGHTEYE SCH ×2 (06:04→14:01)
[2018-10-11] MEDS: guaiFENesin-CODEINE LIQUID 5 ML UD PO SCH ×3 (06:29→17:00)
--- NOTE | 2018-10-11 07:15 | NUR ---
Open Shift Note Received report on patient, awake and in bathroom washing face. Patient states some anxiety on today's left heart cath. Discussed comfort measures and meditation techniques with patient, verbalized understanding. Called patient's Gurpreet to inform him patient would be going down to laboratory sample carrier soon, verbalized that he was on his way. Reapplied patient's oxygen via nasal cannula. Bed in lowest locked position, side rails up x2, and call light within reach. Will continue to monitor.
[2018-10-11 07:49] VITALS: BP 140/90
--- NOTE | 2018-10-11 08:05 | NUR ---
Patient Down to Technology And Engineering Teacher Patient taken down to cardiac cath lab technologist via bed. at side.
[2018-10-11] MEDS ORDERED: LIDOCAINE 2%HCL (LOCAL ANESTH.) INJ 20ML MDV ONE (08:10)
[2018-10-11] MEDS ORDERED: IODIXANOL 320MG/ML 100ML BTL IV ONE (08:10)
[2018-10-11 08:51] LABS: INR 0.98 (0.9-1.15); Partial Thromboplastin Time 23.6 sec (23.78-33.04); Prothrombin Time 9.9 sec (9.27-12.13)
[2018-10-11] MEDS: ENOXAPARIN SOD 40 MG/0.4 ML SYRINGE SC SCH (10:00)
[2018-10-11] MEDS: BUDESONIDE (INHALATION) 0.5 MG/2 ML NEB NEB SCH (10:00)
[2018-10-11] MEDS ORDERED: SODIUM CHL 0.9% 0 ML ONE (11:37)
[2018-10-11] MEDS ORDERED: fentaNYL CITRATE 100 MCG/2 ML VL ONE (11:37)
[2018-10-11] MEDS ORDERED: ANGIOMAX 250 MG VIAL IV ONE (11:37)
[2018-10-11] MEDS ORDERED: MIDAZOLAM HCL 1MG/1ML-2 ML VIAL ONE (11:37)
[2018-10-11] MEDS ORDERED: NITROGLYCERIN 5MG/ML 10ML VIAL IV ONE (11:41)
[2018-10-11] MEDS ORDERED: IOHEXOL 350 MG/ML 100ML IJ ONE (11:50)
--- NOTE | 2018-10-11 12:50 | NUR ---
PT NOT IN ROOM FOR 1300 VITAL SIGNS
--- NOTE | 2018-10-11 13:10 | NUR ---
Patient Returned Patient back from director geophysical laboratory. Instructed patient to remain flat until after 1400. Patient verbalized understanding. Dressing on groin is dry and intact. No bruising apparent. Will continue to monitor.
[2018-10-11] MEDS: POTASSIUM CHL 20 Meq TABLET PO SCH (13:55)
[2018-10-11] MEDS: AZITHROMYCIN 250 MG TAB PO SCH (13:55)
[2018-10-11] MEDS: LEVETIRACETAM 500 MG TAB PO SCH (13:56)
[2018-10-11] MEDS: PANTOPRAZOLE 40 MG TAB PO SCH (13:56)
[2018-10-11] MEDS: HYDROcodone-ACET 5/325MG TAB PO PRN (13:57)
[2018-10-11] MEDS: amLODIPine BESYLATE 5 MG TAB PO SCH (13:57)
[2018-10-11] MEDS: LEVOFLOXACIN 500 MG TAB PO SCH (13:57)
[2018-10-11] MEDS: METOPROLOL TARTRATE 25 MG TAB PO SCH (13:58)
--- NOTE | 2018-10-11 18:22 | NUR ---
Discharged Discharge instructions given as ordered. Encourage to follow up with PMD as instructed. All questions and concerns addressed. Patient verbalized understanding. Medication reconciliation form completed and copy given to patient. Home medications held in Pharmacy returned to patient. IV removed with catheter intact, pressure dressing applied. Telemetry unit returned to [facility]. Patient waiting in lobby for ride from daughter. No distress noted at this time.
== END 2018-10-11 16:18 | disposition home or self-care (01) | DRG 192 ==
LOC: ER 10:53 → TELE 15:24 → TELE-EAST 18:19
PROVIDERS: ADMIT Nurse Practitioner Acute Care; ATTEND Internal Medicine
PROC: 4A023N7 Measurement of Cardiac Sampling and Pressure, Left Heart, Percutaneous Approach (ICD-10-PCS; principal; 2018-10-11)
PROC: B2151ZZ Fluoroscopy of Left Heart using Low Osmolar Contrast (ICD-10-PCS; 2018-10-11)
PROC: B2111ZZ Fluoroscopy of Multiple Coronary Arteries using Low Osmolar Contrast (ICD-10-PCS; 2018-10-11)
DX: I11.0 Hypertensive heart disease with heart failure (principal); J96.20 Acute and chronic respiratory failure, unspecified whether with hypoxia or hypercapnia; I50.33 Acute on chronic diastolic (congestive) heart failure; E66.01 Morbid (severe) obesity due to excess calories; J44.1 Chronic obstructive pulmonary disease with (acute) exacerbation; Z68.41 Body mass index [BMI] 40.0-44.9, adult; I25.10 Atherosclerotic heart disease of native coronary artery without angina pectoris; I16.0 Hypertensive urgency; G40.909 Epilepsy, unspecified, not intractable, without status epilepticus; J98.11 Atelectasis; G47.30 Sleep apnea, unspecified; F41.9 Anxiety disorder, unspecified; M17.0 Bilateral primary osteoarthritis of knee; F17.200 Nicotine dependence, unspecified, uncomplicated; H40.9 Unspecified glaucoma; H54.8 Legal blindness, as defined in USA; I25.2 Old myocardial infarction; Z80.1 Family history of malignant neoplasm of trachea, bronchus and lung; Z82.49 Family history of ischemic heart disease and other diseases of the circulatory system; Z83.3 Family history of diabetes mellitus; Z85.42 Personal history of malignant neoplasm of other parts of uterus; Z86.73 Personal history of transient ischemic attack (TIA), and cerebral infarction without residual deficits; Z90.710 Acquired absence of both cervix and uterus; Z79.899 Other long term (current) drug therapy; Z90.49 Acquired absence of other specified parts of digestive tract; Z98.49 Cataract extraction status, unspecified eye; Z88.8 Allergy status to other drugs, medicaments and biological substances; Z88.0 Allergy status to penicillin; Z68.39 Body mass index [BMI] 39.0-39.9, adult
CPT/HCPCS: 36415; 71045; 71046; 71275; 78452; 80048; 80053; 80061; 83735; 83880; 84439; 84443; 84481; 84484; 85007; 85025; 85027; 85379; 85610; 85730; 87070; 87205; 93005; 93017; 93306; 94640; 99291; A6257; C9113; G0378; J0153; J1956; J2250; J2405; J3490; Q9967

== ENCOUNTER 2018-11-17 08:25 | Emergency (ER) | payer MEDICAID ==
[~2018-11-17] VITALS: Ht 172.7 cm; Wt 113.9 kg
[~2018-11-17 08:25] MED LIST changes: +MET25T PO
[2018-11-17] MEDS ORDERED: ALBUTEROL SULF 2.5 MG/0.5ML(0.5%) NEB SOLN NEB ONE (09:45)
[2018-11-17] MEDS ORDERED: IPRATROPIUM BROM 0.5 MG/2.5ML INH SOL NEB ONE (09:45)
[2018-11-17] MEDS ORDERED: HYDROcodone-ACET 5/325MG TAB PO ONE (09:45)
[2018-11-17 09:51] LABS: Basophils # (auto) 0 uL; Basophils % (auto) 0.5 % (0.0-2.0); Eosinophils # (auto) 0 uL; Eosinophils % (auto) 0.7 % (0.0-7.0); Hematocrit 41.9 % (36.0-46.0); Lymphocytes # (auto) 1.8 uL; Lymphocytes % (auto) 28.3 % (10.0-50.0); Mean Corpuscular Hemoglobin 32.3 pg (28.0-32.0); Mean Corpuscular Hgb Conc. 33.5 g/dL (32.0-36.0); Mean Corpuscular Volume 96.7 fL (80.0-100.0); Monocytes # (auto) 0.5 uL; Monocytes % (auto) 8.3 % (0.0-12.0); Neutrophils % (auto) 62.2 % (37.0-80.0); Platelet Count (auto) 195 10^3/uL (140-450); Red Blood Cells 4.33 10^6/uL (4.0-5.20); Red Cell Distribution Width 14.9 % (11.8-14.3); White Blood Cell 6.5 10^3/uL (4.4-10.8)
[2018-11-17 10:04] LABS: Alanine Aminotransferase 21 U/L (13-56); Albumin 3.6 g/dL (3.4-5.0); Anion Gap 9 (5-15); Aspartate Aminotransferase 14 U/L (15-37); BUN/Creatinine Ratio 19.4; Blood Urea Nitrogen 14 mg/dL (7-18); Calcium 8.9 mg/dL (8.5-10.1); Carbon Dioxide 24 mmol/L (21-32); Chloride 110 mmol/L (98-107); GFR African American 105 mL/min; GFR Non-African American 87 mL/min; Glucose 104 mg/dL (74-106); Magnesium 2.1 mg/dL (1.6-2.6); Sodium 143 mmol/L (136-145)
[2018-11-17 10:07] LABS: Alkaline Phosphatase 94 U/L (45-117); Bilirubin, Total 0.7 mg/dL (0.2-1.0); Total Protein 7.4 g/dL (6.4-8.2)
[2018-11-17] MEDS ORDERED: MORPHINE SULFATE 4 MG/ML SYR/VIAL IV ONE (10:45)
[2018-11-17] MEDS ORDERED: methylPREDNISolone SOD SUCC 125 MG/2 ML VL IV ONE (10:45)
[2018-11-17] MEDS ORDERED: ONDANSETRON HCL 4 MG/2 ML VIAL IV ONE (10:45)
[2018-11-17 10:54] LABS: Urine Bacteria FEW /hpf (None Seen); Urine Blood Negative /uL (Negative); Urine Mucus FEW (None Seen); Urine Specific Gravity 1.013 (1.001-1.035); Urine WBC 1 /hpf (0 - 5)
[2018-11-17 12:05] VITALS: BP 111/56
== END 2018-11-17 12:10 | disposition home or self-care (01) ==
LOC: ER 08:28
DX: G89.4 Chronic pain syndrome (principal); R07.9 Chest pain, unspecified; R51 Headache; M54.2 Cervicalgia; J44.9 Chronic obstructive pulmonary disease, unspecified; I11.0 Hypertensive heart disease with heart failure; I50.9 Heart failure, unspecified; Z86.73 Personal history of transient ischemic attack (TIA), and cerebral infarction without residual deficits; Z90.49 Acquired absence of other specified parts of digestive tract; Z90.710 Acquired absence of both cervix and uterus; Z88.0 Allergy status to penicillin; Z88.8 Allergy status to other drugs, medicaments and biological substances; Z79.899 Other long term (current) drug therapy
CPT/HCPCS: 36415; 71046; 80053; 81001; 83735; 83880; 84484; 85025; 87040; 93005; 94640; 96374; 96375; 99284; J2270; J2405; J2930; J7611; J7644

== ENCOUNTER 2019-04-18 07:23 | Emergency (ER) | payer MEDICAID ==
[~2019-04-18] VITALS: Ht 172.7 cm; Wt 113.4 kg
[~2019-04-18 07:23] MED LIST changes: -HYDR-4683 PO; +HYDR-4833 PO; +LORA1TAB12 PO; +POTA-220 PO; -POTA20TA53 PO
[2019-04-18] MEDS ORDERED: cloNIDine HCL 0.1 MG TAB PO ONE (07:45)
[2019-04-18] MEDS ORDERED: SODIUM CHLORIDE 0.9% 1,000 ML IV ONE (07:54)
[2019-04-18 08:48] LABS: Basophils # (auto) 0 uL; Basophils % (auto) 0.6 % (0.0-2.0); Eosinophils # (auto) 0.1 uL; Eosinophils % (auto) 1.2 % (0.0-7.0); Hematocrit 39.2 % (36.0-46.0); Hemoglobin 13.2 g/dL (12.2-16.2); Lymphocytes # (auto) 1.9 uL; Lymphocytes % (auto) 28.3 % (10.0-50.0); Mean Corpuscular Hemoglobin 32.4 pg (28.0-32.0); Mean Corpuscular Hgb Conc. 33.5 g/dL (32.0-36.0); Mean Corpuscular Volume 96.4 fL (80.0-100.0); Monocytes # (auto) 0.5 uL; Neutrophils # (auto) 4.3 uL; Neutrophils % (auto) 62.9 % (37.0-80.0); Nucleated Red Blood Cells % 0.1 %; Platelet Count (auto) 218 10^3/uL (140-450); Red Blood Cells 4.07 10^6/uL (4.0-5.20); Red Cell Distribution Width 13.6 % (11.8-14.3); White Blood Cell 6.8 10^3/uL (4.4-10.8)
[2019-04-18 09:13] LABS: Albumin 3.4 g/dL (3.4-5.0); BUN/Creatinine Ratio 20.8; Bilirubin, Total 0.8 mg/dL (0.2-1.0); Calcium 8.4 mg/dL (8.5-10.1); Potassium 3.8 mmol/L (3.5-5.1); Total Protein 7.1 g/dL (6.4-8.2)
[2019-04-18] MEDS ORDERED: MORPHINE SULF INJ 2 MG/ML SYRINGE 1ML IV ONE (10:30)
[2019-04-18] MEDS ORDERED: PROMETHAZINE HCL 25 MG/ML 1ML IV ONE (10:30)
[2019-04-18 11:05] LABS: Urine Bacteria MOD /hpf (None Seen); Urine Blood Negative /uL (Negative); Urine Mucus FEW (None Seen); Urine Specific Gravity 1.014 (1.001-1.035); Urine WBC 11 /hpf (0 - 5)
[2019-04-18 12:11] VITALS: BP 127/67
[2019-04-23] MEDS ORDERED: MUPI2OIN2 EX (13:03)
[2019-04-23] MEDS ORDERED: LEVO500T21 PO (13:03)
[2019-04-23] MEDS ORDERED: ASPI-378 PO (13:03)
== END 2019-04-18 15:02 | disposition home or self-care (01) ==
LOC: ER 07:23
DX: G40.909 Epilepsy, unspecified, not intractable, without status epilepticus (principal); R51 Headache; I11.0 Hypertensive heart disease with heart failure; I50.9 Heart failure, unspecified; E66.9 Obesity, unspecified; R42 Dizziness and giddiness; F17.210 Nicotine dependence, cigarettes, uncomplicated; J44.9 Chronic obstructive pulmonary disease, unspecified; Z68.38 Body mass index [BMI] 38.0-38.9, adult; Z86.73 Personal history of transient ischemic attack (TIA), and cerebral infarction without residual deficits; Z90.49 Acquired absence of other specified parts of digestive tract; Z90.710 Acquired absence of both cervix and uterus; Z88.0 Allergy status to penicillin; Z79.899 Other long term (current) drug therapy
CPT/HCPCS: 36415; 70450; 71046; 80053; 81001; 83735; 84443; 84484; 85025; 93005; 94761; 96361; 96374; 96375; 99284; J2270; J2550; J7030

== ENCOUNTER 2019-08-07 19:15 | Emergency (ER) | payer MEDICAID ==
[~2019-08-07] VITALS: Ht 172.7 cm; Wt 113.4 kg
[~2019-08-07 19:15] MED LIST changes: +ARIP2TAB PO; +ASPI-378 PO; +MIRT15TA PO
[2019-08-07] MEDS ORDERED: guaiFENesin-DM 100/10mg/5ml SYR PO ONE (22:00)
[2019-08-07] MEDS ORDERED: IPRATROPIUM BROM 0.5 MG/2.5ML INH SOL NEB ONE (22:00)
[2019-08-07] MEDS ORDERED: ALBUTEROL SULF 2.5 MG/0.5ML(0.5%) NEB SOLN NEB ONE (22:00)
[2019-08-07] MEDS ORDERED: BACLOFEN 10 MG TAB PO ONE (22:00)
[2019-08-07] MEDS ORDERED: methylPREDNISolone SOD SUCC 125 MG/2 ML VL IM ONE (22:00)
[2019-08-07 22:04] VITALS: BP 145/87
== END 2019-08-07 22:57 | disposition home or self-care (01) ==
LOC: ER 19:15
DX: R51 Headache (principal); J06.9 Acute upper respiratory infection, unspecified; M19.90 Unspecified osteoarthritis, unspecified site; M54.2 Cervicalgia; M54.9 Dorsalgia, unspecified; F17.210 Nicotine dependence, cigarettes, uncomplicated; M25.562 Pain in left knee; M25.522 Pain in left elbow; M79.641 Pain in right hand; I11.0 Hypertensive heart disease with heart failure; I50.9 Heart failure, unspecified; J44.9 Chronic obstructive pulmonary disease, unspecified; Z86.73 Personal history of transient ischemic attack (TIA), and cerebral infarction without residual deficits; Z90.49 Acquired absence of other specified parts of digestive tract; Z90.710 Acquired absence of both cervix and uterus; Z88.0 Allergy status to penicillin; Z79.899 Other long term (current) drug therapy; W01.0XXA Fall on same level from slipping, tripping and stumbling without subsequent striking against object, initial encounter; Y93.01 Activity, walking, marching and hiking; Y92.89 Other specified places as the place of occurrence of the external cause; Y99.8 Other external cause status
CPT/HCPCS: 70450; 71046; 72125; 73080; 73130; 73564; 93005; 94640; 96372; 99285; J2930; J7611; J7644

== ENCOUNTER 2019-08-14 20:19 | Emergency (ER) | payer MEDICAID ==
[~2019-08-14] VITALS: Ht 172.7 cm; Wt 109.3 kg
[~2019-08-14 20:19] MED LIST changes: -LATA0.0015 OP; +LATA0.0019 OP; -PRA25T PO; +PRAM0.252 PO
[2019-08-14] MEDS ORDERED: cloNIDine HCL 0.1 MG TAB PO ONE (20:30)
[2019-08-14 21:24] LABS: Basophils # (auto) 0.1 uL; Basophils % (auto) 0.5 % (0.0-2.0); Eosinophils # (auto) 0 uL; Eosinophils % (auto) 0.3 % (0.0-7.0); Hematocrit 39.9 % (36.0-46.0); Hemoglobin 13.2 g/dL (12.2-16.2); Lymphocytes # (auto) 2.6 uL; Lymphocytes % (auto) 16.9 % (10.0-50.0); Mean Corpuscular Hemoglobin 31.5 pg (28.0-32.0); Mean Corpuscular Hgb Conc. 33.2 g/dL (32.0-36.0); Mean Corpuscular Volume 94.9 fL (80.0-100.0); Monocytes # (auto) 1.4 uL; Monocytes % (auto) 9.2 % (0.0-12.0); Neutrophils # (auto) 11.4 uL; Neutrophils % (auto) 73.1 % (37.0-80.0); Platelet Count (auto) 251 10^3/uL (140-450); White Blood Cell 15.6 10^3/uL (4.4-10.8)
[2019-08-14 21:40] LABS: INR 0.99 (0.9-1.15); Partial Thromboplastin Time 26.8 sec (23.64-32.05)
[2019-08-14 21:41] LABS: Albumin 3.7 g/dL (3.4-5.0); Anion Gap 4 (5-15); Blood Urea Nitrogen 23 mg/dL (7-18); Calcium 9.4 mg/dL (8.5-10.1); Carbon Dioxide 25 mmol/L (21-32); Chloride 110 mmol/L (98-107); Glucose 123 mg/dL (74-106); Magnesium 2.4 mg/dL (1.6-2.6); Potassium 4.2 mmol/L (3.5-5.1); Sodium 139 mmol/L (136-145)
[2019-08-14 21:48] LABS: Alanine Aminotransferase 16 U/L (13-56); Alkaline Phosphatase 111 U/L (45-117); Aspartate Aminotransferase 8 U/L (15-37); BUN/Creatinine Ratio 25.8; Bilirubin, Total 0.5 mg/dL (0.2-1.0); GFR African American 82 mL/min; GFR Non-African American 68 mL/min
[2019-08-15 01:00] VITALS: BP 168/83
[2019-08-15 02:47] LABS: Urine Bacteria FEW /hpf (None Seen); Urine Blood Negative /uL (Negative); Urine Hyaline Cast FEW /lpf (0 - 2); Urine Mucus FEW (None Seen); Urine Specific Gravity 1.029 (1.001-1.035); Urine WBC 10 /hpf (0 - 5)
== END 2019-08-15 02:30 | disposition home or self-care (01) ==
LOC: ER 20:21
DX: R07.9 Chest pain, unspecified (principal); G89.29 Other chronic pain; I16.0 Hypertensive urgency; H40.9 Unspecified glaucoma; D72.829 Elevated white blood cell count, unspecified; J44.9 Chronic obstructive pulmonary disease, unspecified; I11.0 Hypertensive heart disease with heart failure; I50.9 Heart failure, unspecified; F17.210 Nicotine dependence, cigarettes, uncomplicated; Z88.5 Allergy status to narcotic agent; Z88.0 Allergy status to penicillin; Z88.8 Allergy status to other drugs, medicaments and biological substances; Z79.899 Other long term (current) drug therapy
CPT/HCPCS: 36415; 70450; 71046; 80053; 81001; 83735; 83880; 84443; 84484; 85025; 85610; 85730; 93005

== ENCOUNTER 2020-05-18 21:39 | Emergency (ER) | payer MEDICARE, MEDICAID ==
[~2020-05-18] VITALS: Ht 170.2 cm; Wt 113.4 kg
[~2020-05-18 21:39] MED LIST changes: -LORA1TAB12 PO; +LORA1TAB23 PO
[2020-05-18 23:13] LABS: Basophils # (auto) 0.1 10 ^3/uL (0-0.2); Eosinophils # (auto) 0.2 10 ^3/uL (0-0.8); Hematocrit 43.5 % (36.0-46.0); Hemoglobin 14.1 g/dL (12.2-16.2); Lymphocytes # (auto) 3.3 10 ^3/uL (0.4-5.4); Mean Corpuscular Hemoglobin 30.9 pg (28.0-32.0); Mean Corpuscular Hgb Conc. 32.5 g/dL (32.0-36.0); Mean Corpuscular Volume 95.2 fL (80.0-100.0); Monocytes # (auto) 0.6 10 ^3/uL (0-1.3); Monocytes % (auto) 7.8 % (0.0-12.0); Neutrophils # (auto) 3.3 10 ^3/uL (1.6-8.6); Neutrophils % (auto) 44.2 % (37.0-80.0); Nucleated Red Blood Cells % 0.1 %; Platelet Count (auto) 264 10^3/uL (140-450); Red Blood Cells 4.57 10^6/uL (4.0-5.20); White Blood Cell 7.6 10^3/uL (4.4-10.8)
[2020-05-18 23:34] LABS: Potassium 3.2 mmol/L (3.5-5.1)
[2020-05-18 23:46] LABS: Albumin 4.1 g/dL (3.4-5.0); BUN/Creatinine Ratio 23.7; Bilirubin, Total 0.7 mg/dL (0.2-1.0); Calcium 9.3 mg/dL (8.5-10.1); Total Protein 8.3 g/dL (6.4-8.2)
[2020-05-19] MEDS ORDERED: NALOXONE HCL 1MG/ML 2ML SYRINGE IV ONE
[2020-05-19] MEDS ORDERED: levETIRAcetam 500 MG/5ML INJ IV ONE (02:00)
[2020-05-19 05:12] VITALS: BP 131/66
== END 2020-05-19 06:06 | disposition home or self-care (01) ==
LOC: ER 21:39 → EDBD 21:39 → ER 05-19 06:06
DX: G40.409 Other generalized epilepsy and epileptic syndromes, not intractable, without status epilepticus (principal)
CPT/HCPCS: 36415; 70450; 71045; 72125; 80053; 85025; 96365; 96375; 99285; J1953; J2310; J7060

== ENCOUNTER 2021-12-09 04:13 | Inpatient (IN) | payer MEDICARE, MEDICAID ==
[~2021-12-09] VITALS: Ht 172.7 cm; Wt 120.4 kg
[~2021-12-09 04:13] MED LIST changes: +ALB5IS NEB; +BRIM0.159 EACHEYE; +CHOL1CAP47 PO; +DEXT1SYP9 PO; +FURO1TAB31 PO; +GUAI100S6 PO; +IPR002IS NEB; +IPRIH INH; +LATA0.0019 EACHEYE; +LEVE500T32 PO; +LEVO-28 PO; +LORA0.5T20 PO; +LOSA25TA38 PO; +MIRT-68 PO; -MIRT15TA PO; +NIC21P TD
[2021-12-09 04:59] LABS: Basophils # (auto) 0.1 10 ^3/uL (0-0.2); Basophils % (auto) 1.1 % (0.0-2.0); Eosinophils # (auto) 0.2 10 ^3/uL (0-0.8); Eosinophils % (auto) 2.1 % (0.0-7.0); Hematocrit 38.5 % (36.0-46.0); Hemoglobin 12.9 g/dL (12.2-16.2); Lymphocytes # (auto) 3.4 10 ^3/uL (0.4-5.4); Lymphocytes % (auto) 42.5 % (10.0-50.0); Mean Corpuscular Hemoglobin 31.4 pg (28.0-32.0); Mean Corpuscular Hgb Conc. 33.5 g/dL (32.0-36.0); Mean Corpuscular Volume 93.6 fL (80.0-100.0); Monocytes # (auto) 0.6 10 ^3/uL (0-1.3); Monocytes % (auto) 7.9 % (0.0-12.0); Neutrophils # (auto) 3.7 10 ^3/uL (1.6-8.6); Neutrophils % (auto) 46.4 % (37.0-80.0); Nucleated Red Blood Cells % 0.3 %; Red Blood Cells 4.12 10^6/uL (4.0-5.20); Red Cell Distribution Width 13.5 % (11.8-14.3)
[2021-12-09 05:17] LABS: Albumin 3.3 g/dL (3.4-5.0); Calcium 8.7 mg/dL (8.5-10.1); Potassium 3.5 mmol/L (3.5-5.1)
[2021-12-09 05:20] LABS: BUN/Creatinine Ratio 15.8; Bilirubin, Total 0.6 mg/dL (0.2-1.0); Total Protein 7.1 g/dL (6.4-8.2)
[2021-12-09] MEDS ORDERED: ALBUTEROL SULF 2.5 MG/0.5ML(0.5%) NEB SOLN NEB ONE (08:00)
[2021-12-09] MEDS ORDERED: IPRATROPIUM BROM 0.5 MG/2.5ML INH SOL NEB ONE (08:00)
[2021-12-09] MEDS ORDERED: methylPREDNISolone SOD SUCC 125 MG/2 ML VL IV ONE (08:00)
[2021-12-09] MEDS: MAGNESIUM SULFATE 1GM/100ML 100 ML IV SCH ×2 (08:23→09:18)
[2021-12-09] MEDS ORDERED: LABETALOL HCL 5 MG/ML 4ML SYRINGE IV ONE (09:00)
[2021-12-09] MEDS ORDERED: CITALOPRAM HYDROBR 20 MG TAB PO SCH (10:00)
[2021-12-09] MEDS: LEVALBUTEROL HCL 1.25 MG/3 ML NEB NEB SCH ×2 (10:00→22:48)
[2021-12-09] MEDS ORDERED: ACETAMINOPHEN 325 MG TAB PO PRN (10:15)
[2021-12-09] MEDS ORDERED: LORazepam 0.5 MG TAB PO ONE (10:15)
[2021-12-09] MEDS ORDERED: NITROGLYCERIN 0.4 MG SL TAB SL PRN (10:15)
[2021-12-09] MEDS: LORazepam 2MG/ML-1ML VIAL IV ONE ×2 (11:02→11:18)
[2021-12-09] MEDS: FUROSEMIDE 40 MG TAB PO SCH (11:55)
[2021-12-09] MEDS: amLODIPine BESYLATE 5 MG TAB PO SCH (11:55)
[2021-12-09] MEDS: levETIRAcetam 500 MG TAB PO SCH ×2 (11:56→21:34)
[2021-12-09] MEDS: ASPirin-EC 81 mg tab PO SCH (11:56)
[2021-12-09] MEDS: ALBUTEROL SULF 2.5 MG/0.5ML(0.5%) NEB SOLN NEB PRN (11:58)
[2021-12-09] MEDS: IPRATROPIUM BROM 0.5 MG/2.5ML INH SOL NEB PRN (11:58)
[2021-12-09] MEDS: METOPROLOL TARTRATE 25 MG TAB PO SCH ×2 (12:08→21:35)
[2021-12-09] MEDS: CHOLECALCIFEROL (VITD3) 2,000 UNIT CAP/TAB PO SCH (12:08)
[2021-12-09] MEDS: LOSARTAN POTASSIUM 25 MG TAB PO SCH (12:09)
[2021-12-09] MEDS: ARIPIPRAZOLE 2 MG PO SCH (12:09)
[2021-12-09] MEDS: methylPREDNISolone SOD SUCC 125 MG/2 ML VL IV SCH ×2 (12:15→17:58)
[2021-12-09] MEDS: NICOTINE 21MG/24 HR TOPICAL PATCH TD SCH (12:32)
[2021-12-09] MEDS: SODIUM CHLOR 0.9% PF (SALINE LOCK) 10ML VIAL/SYR IV SCH ×2 (13:37→21:41)
[2021-12-09] MEDS: BRIMONIDINE TARTRATE 0.15% OP SCH ×2 (14:00→22:00)
[2021-12-09 17:33] VITALS: BP 149/78
[2021-12-09] MEDS: LORazepam 0.5 MG TAB PO PRN (17:58)
[2021-12-09] MEDS: HYDROcodone-ACET 5/325MG TAB PO PRN ×2 (17:59→21:23)
[2021-12-09 20:00] VITALS: BP 140/74
[2021-12-09] MEDS: ALPRAZolam 0.5 MG TAB PO PRN (21:35)
[2021-12-09] MEDS: ATORVASTATIN 20 MG TAB PO SCH (21:35)
[2021-12-09 22:00] VITALS: BP 152/92
[2021-12-09] MEDS: LATANOPROST 0.005 % OPTH(EYE) SOL 2.5ML EACHEYE SCH (22:00)
[2021-12-10] MEDS: methylPREDNISolone SOD SUCC 125 MG/2 ML VL IV SCH ×5 (00:15→23:09)
[2021-12-10] MEDS: HYDROcodone-ACET 5/325MG TAB PO PRN (02:24)
[2021-12-10] MEDS: ALPRAZolam 0.5 MG TAB PO PRN ×3 (02:27→22:00)
[2021-12-10] MEDS: ONDANSETRON ODT 4 MG TAB PO PRN (02:28)
[2021-12-10] MEDS: ALBUTEROL SULF 2.5 MG/0.5ML(0.5%) NEB SOLN NEB PRN ×2 (04:56→22:40)
[2021-12-10] MEDS: IPRATROPIUM BROM 0.5 MG/2.5ML INH SOL NEB PRN ×2 (04:56→22:40)
[2021-12-10 05:00] VITALS: BP 136/82
[2021-12-10] MEDS: SODIUM CHLOR 0.9% PF (SALINE LOCK) 10ML VIAL/SYR IV SCH ×3 (05:12→21:57)
[2021-12-10 05:35] LABS: Urine Bacteria FEW /hpf (None Seen); Urine Blood 3+ /uL (Negative); Urine Mucus FEW (None Seen); Urine Specific Gravity 1.011 (1.001-1.035); Urine WBC 7 /hpf (0 - 5)
[2021-12-10] MEDS: BRIMONIDINE TARTRATE 0.15% OP SCH ×3 (06:00→21:57)
[2021-12-10 09:00] VITALS: BP 107/47
[2021-12-10] MEDS: ASPirin-EC 81 mg tab PO SCH (09:21)
[2021-12-10] MEDS: amLODIPine BESYLATE 5 MG TAB PO SCH (09:22)
[2021-12-10] MEDS: NICOTINE 21MG/24 HR TOPICAL PATCH TD SCH (09:23)
[2021-12-10] MEDS: CHOLECALCIFEROL (VITD3) 2,000 UNIT CAP/TAB PO SCH (09:23)
[2021-12-10] MEDS: FUROSEMIDE 40 MG TAB PO SCH (09:24)
[2021-12-10] MEDS: levETIRAcetam 500 MG TAB PO SCH ×2 (09:24→21:58)
[2021-12-10] MEDS: METOPROLOL TARTRATE 25 MG TAB PO SCH ×2 (09:25→21:59)
[2021-12-10] MEDS: LOSARTAN POTASSIUM 25 MG TAB PO SCH (09:25)
[2021-12-10] MEDS: ARIPIPRAZOLE 2 MG PO SCH (09:26)
[2021-12-10] MEDS: LEVALBUTEROL HCL 1.25 MG/3 ML NEB NEB SCH ×3 (10:00→19:06)
[2021-12-10] MEDS ORDERED: ZOLPIDEM TARTRATE 5 MG TAB PO PRN (10:45)
[2021-12-10] MEDS ORDERED: guaiFENesin-DM 100/10mg/5ml SYR PO PRN (10:45)
[2021-12-10] MEDS: cefTRIAXone 1GM/50ML D5W 50 ML IV SCH (12:02)
[2021-12-10] MEDS: AZITHROMYCIN 500MG/ 250ML 250 ML IV SCH (12:45)
[2021-12-10 13:00] VITALS: BP 127/75
[2021-12-10] MEDS: HYDROcodone-ACET 10/325MG TAB PO PRN ×2 (16:33→22:59)
[2021-12-10 16:40] VITALS: BP 142/74
[2021-12-10] MEDS: DOCUSATE SOD 100 MG CAP PO PRN (16:51)
[2021-12-10] MEDS: LATANOPROST 0.005 % OPTH(EYE) SOL 2.5ML EACHEYE SCH (21:57)
[2021-12-10] MEDS: ATORVASTATIN 20 MG TAB PO SCH (21:58)
[2021-12-10 22:00] VITALS: BP 137/72
[2021-12-11 05:00] VITALS: BP 127/63
[2021-12-11] MEDS: SODIUM CHLOR 0.9% PF (SALINE LOCK) 10ML VIAL/SYR IV SCH ×3 (05:07→21:12)
[2021-12-11] MEDS: BRIMONIDINE TARTRATE 0.15% OP SCH ×3 (05:08→21:12)
[2021-12-11] MEDS: HYDROcodone-ACET 10/325MG TAB PO PRN (05:08)
[2021-12-11] MEDS: methylPREDNISolone SOD SUCC 125 MG/2 ML VL IV SCH (05:08)
[2021-12-11] MEDS: LEVALBUTEROL HCL 1.25 MG/3 ML NEB NEB SCH ×2 (05:47→18:37)
[2021-12-11 06:00] VITALS: BP 135/62
[2021-12-11] MEDS: ALPRAZolam 0.5 MG TAB PO PRN ×2 (06:10→13:46)
[2021-12-11 06:13] LABS: BUN/Creatinine Ratio 25.5; Calcium 9.1 mg/dL (8.5-10.1); Potassium 4.1 mmol/L (3.5-5.1)
[2021-12-11 07:45] LABS: Basophils # (auto) 0 10 ^3/uL (0-0.2); Eosinophils # (auto) 0 10 ^3/uL (0-0.8); Hematocrit 37.1 % (36.0-46.0); Hemoglobin 12.3 g/dL (12.2-16.2); Lymphocytes # (auto) 1.6 10 ^3/uL (0.4-5.4); Mean Corpuscular Hemoglobin 31.7 pg (28.0-32.0); Mean Corpuscular Hgb Conc. 33.3 g/dL (32.0-36.0); Mean Corpuscular Volume 95.4 fL (80.0-100.0); Monocytes # (auto) 0.7 10 ^3/uL (0-1.3); Monocytes % (auto) 3.2 % (0.0-12.0); Neutrophils # (auto) 18.2 10 ^3/uL (1.6-8.6); Neutrophils % (auto) 88.8 % (37.0-80.0); Red Blood Cells 3.88 10^6/uL (4.0-5.20); White Blood Cell 20.6 10^3/uL (4.4-10.8)
[2021-12-11] MEDS: cefTRIAXone 1GM/50ML D5W 50 ML IV SCH (08:57)
[2021-12-11 09:00] VITALS: BP 122/69
[2021-12-11] MEDS: NICOTINE 21MG/24 HR TOPICAL PATCH TD SCH (09:59)
[2021-12-11] MEDS: levETIRAcetam 500 MG TAB PO SCH ×2 (10:00→21:11)
[2021-12-11] MEDS: AZITHROMYCIN 500MG/ 250ML 250 ML IV SCH (10:00)
[2021-12-11] MEDS: amLODIPine BESYLATE 5 MG TAB PO SCH (10:00)
[2021-12-11] MEDS: METOPROLOL TARTRATE 25 MG TAB PO SCH ×2 (10:00→21:11)
[2021-12-11] MEDS: ARIPIPRAZOLE 2 MG PO SCH (10:00)
[2021-12-11] MEDS: ASPirin-EC 81 mg tab PO SCH (10:01)
[2021-12-11] MEDS: CHOLECALCIFEROL (VITD3) 2,000 UNIT CAP/TAB PO SCH (10:01)
[2021-12-11] MEDS: LOSARTAN POTASSIUM 25 MG TAB PO SCH (10:01)
[2021-12-11] MEDS: FUROSEMIDE 40 MG TAB PO SCH (10:01)
[2021-12-11 13:00] VITALS: BP 114/56
[2021-12-11] MEDS: guaiFENesin-CODEINE Liq 5 ML UD PO PRN ×2 (13:46→21:11)
[2021-12-11 16:59] VITALS: BP 121/64
[2021-12-11] MEDS: ATORVASTATIN 20 MG TAB PO SCH (21:10)
[2021-12-11] MEDS: DOCUSATE SOD 100 MG CAP PO PRN (21:10)
[2021-12-11] MEDS: LATANOPROST 0.005 % OPTH(EYE) SOL 2.5ML EACHEYE SCH (21:12)
[2021-12-11] MEDS: methylPREDNISolone SOD SUCC 40 MG/ML VL IV SCH (21:12)
[2021-12-11 22:00] VITALS: BP 158/87
[2021-12-12] VITALS (8 sets, daily range): BP systolic 142–186; BP diastolic 50–93
[2021-12-12] MEDS: HYDROcodone-ACET 10/325MG TAB PO PRN (05:46)
[2021-12-12 05:55] LABS: Basophils # (auto) 0 10 ^3/uL (0-0.2); Basophils % (auto) 0.2 % (0.0-2.0); Eosinophils # (auto) 0 10 ^3/uL (0-0.8); Eosinophils % (auto) 0.1 % (0.0-7.0); Hematocrit 36.8 % (36.0-46.0); Hemoglobin 12.3 g/dL (12.2-16.2); Mean Corpuscular Hemoglobin 31.7 pg (28.0-32.0); Mean Corpuscular Hgb Conc. 33.4 g/dL (32.0-36.0); Mean Corpuscular Volume 94.8 fL (80.0-100.0); Monocytes # (auto) 0.6 10 ^3/uL (0-1.3); Monocytes % (auto) 3.7 % (0.0-12.0); Neutrophils # (auto) 14.7 10 ^3/uL (1.6-8.6); Nucleated Red Blood Cells % 0.1 %; Red Blood Cells 3.89 10^6/uL (4.0-5.20); Red Cell Distribution Width 13.9 % (11.8-14.3); White Blood Cell 16.3 10^3/uL (4.4-10.8)
[2021-12-12] MEDS: SODIUM CHLOR 0.9% PF (SALINE LOCK) 10ML VIAL/SYR IV SCH ×3 (06:00→21:50)
[2021-12-12 06:13] LABS: Potassium 4.3 mmol/L (3.5-5.1)
[2021-12-12 06:21] LABS: BUN/Creatinine Ratio 47.1; Calcium 8.8 mg/dL (8.5-10.1)
[2021-12-12] MEDS ORDERED: MORPHINE SULFATE INJ 2 MG/ml SYRG ONE (06:27)
[2021-12-12] MEDS: LEVALBUTEROL HCL 1.25 MG/3 ML NEB NEB SCH ×3 (06:54→22:23)
[2021-12-12] MEDS: MORPHINE SULFATE INJ 2 MG/ml SYRG IV PRN ×3 (07:57→20:49)
[2021-12-12] MEDS ORDERED: PANTOPRAZOLE 40 MG/10 ML VIAL INJ IV ONE (08:30)
[2021-12-12] MEDS: cefTRIAXone 1GM/50ML D5W 50 ML IV SCH (09:00)
[2021-12-12] MEDS ORDERED: IOHEXOL 350 MG/ML 100ML IJ ONE (09:55)
[2021-12-12] MEDS: METOPROLOL TARTRATE 25 MG TAB PO SCH ×2 (10:00→21:52)
[2021-12-12] MEDS: ARIPIPRAZOLE 2 MG PO SCH (10:00)
[2021-12-12] MEDS: BRIMONIDINE TARTRATE 0.15% OP SCH ×3 (11:16→22:00)
[2021-12-12] MEDS: methylPREDNISolone SOD SUCC 40 MG/ML VL IV SCH ×2 (11:16→21:50)
[2021-12-12] MEDS: AZITHROMYCIN 500MG/ 250ML 250 ML IV SCH (11:16)
[2021-12-12] MEDS: ASPirin-EC 81 mg tab PO SCH (11:17)
[2021-12-12] MEDS: LOSARTAN POTASSIUM 25 MG TAB PO SCH (11:17)
[2021-12-12] MEDS: FUROSEMIDE 40 MG TAB PO SCH (11:18)
[2021-12-12] MEDS: CHOLECALCIFEROL (VITD3) 2,000 UNIT CAP/TAB PO SCH (11:18)
[2021-12-12] MEDS: levETIRAcetam 500 MG TAB PO SCH ×2 (11:18→21:51)
[2021-12-12] MEDS: amLODIPine BESYLATE 5 MG TAB PO SCH (11:19)
[2021-12-12] MEDS: NICOTINE 21MG/24 HR TOPICAL PATCH TD SCH (11:20)
[2021-12-12] MEDS: LORazepam 0.5 MG TAB PO PRN (11:30)
[2021-12-12] MEDS: DOCUSATE SOD 100 MG CAP PO PRN (16:11)
[2021-12-12] MEDS ORDERED: LACTULOSE 20Gm/30ML SOLN PO ONE (17:00)
[2021-12-12] MEDS ORDERED: DOCUSATE SOD 100 MG CAP PO ONE (17:00)
[2021-12-12] MEDS: guaiFENesin-CODEINE Liq 5 ML UD PO PRN (17:22)
[2021-12-12] MEDS ORDERED: ALPRAZolam 0.5 MG TAB PO PRN (20:00)
[2021-12-12] MEDS: LATANOPROST 0.005 % OPTH(EYE) SOL 2.5ML EACHEYE SCH (21:50)
[2021-12-12] MEDS: ATORVASTATIN 20 MG TAB PO SCH (21:51)
[2021-12-12] MEDS: DOCUSATE SOD 100 MG CAP PO SCH (21:51)
[2021-12-12] MEDS: ACETAMINOPHEN 325 MG TAB PO SCH (22:04)
[2021-12-13] VITALS (7 sets, daily range): BP systolic 134–156; BP diastolic 67–92
[2021-12-13] MEDS: LACTULOSE 20Gm/30ML SOLN PO SCH ×4 (00:14→18:00)
[2021-12-13] MEDS: MORPHINE SULFATE INJ 2 MG/ml SYRG IV PRN ×5 (02:41→16:23)
[2021-12-13 05:29] LABS: Basophils # (auto) 0.1 10 ^3/uL (0-0.2); Basophils % (auto) 0.6 % (0.0-2.0); Eosinophils # (auto) 0 10 ^3/uL (0-0.8); Eosinophils % (auto) 0.1 % (0.0-7.0); Hematocrit 39.1 % (36.0-46.0); Lymphocytes # (auto) 0.7 10 ^3/uL (0.4-5.4); Lymphocytes % (auto) 4.9 % (10.0-50.0); Mean Corpuscular Hemoglobin 31.4 pg (28.0-32.0); Mean Corpuscular Hgb Conc. 33.3 g/dL (32.0-36.0); Mean Corpuscular Volume 94.3 fL (80.0-100.0); Monocytes # (auto) 0.6 10 ^3/uL (0-1.3); Monocytes % (auto) 3.8 % (0.0-12.0); Neutrophils # (auto) 13.3 10 ^3/uL (1.6-8.6); Neutrophils % (auto) 90.6 % (37.0-80.0); Nucleated Red Blood Cells % 0.1 %; Red Blood Cells 4.14 10^6/uL (4.0-5.20); Red Cell Distribution Width 13.9 % (11.8-14.3); White Blood Cell 14.7 10^3/uL (4.4-10.8)
[2021-12-13] MEDS: SODIUM CHLOR 0.9% PF (SALINE LOCK) 10ML VIAL/SYR IV SCH ×3 (06:04→22:03)
[2021-12-13 06:08] LABS: Potassium 4.2 mmol/L (3.5-5.1)
[2021-12-13 06:12] LABS: BUN/Creatinine Ratio 37.8; Calcium 8.5 mg/dL (8.5-10.1)
[2021-12-13] MEDS: BRIMONIDINE TARTRATE 0.15% OP SCH ×3 (07:15→22:12)
[2021-12-13] MEDS: AZITHROMYCIN 500MG/ 250ML 250 ML IV SCH (11:39)
[2021-12-13] MEDS: methylPREDNISolone SOD SUCC 40 MG/ML VL IV SCH ×2 (11:39→22:03)
[2021-12-13] MEDS: cefTRIAXone 1GM/50ML D5W 50 ML IV SCH (11:39)
[2021-12-13] MEDS: ASPirin-EC 81 mg tab PO SCH (11:40)
[2021-12-13] MEDS: LOSARTAN POTASSIUM 25 MG TAB PO SCH (11:40)
[2021-12-13] MEDS: DOCUSATE SOD 100 MG CAP PO SCH ×2 (11:40→22:05)
[2021-12-13] MEDS: ARIPIPRAZOLE 2 MG PO SCH (11:40)
[2021-12-13] MEDS: amLODIPine BESYLATE 5 MG TAB PO SCH (11:41)
[2021-12-13] MEDS: FUROSEMIDE 40 MG TAB PO SCH (11:41)
[2021-12-13] MEDS: levETIRAcetam 500 MG TAB PO SCH ×2 (11:41→22:06)
[2021-12-13] MEDS: METOPROLOL TARTRATE 25 MG TAB PO SCH ×2 (11:41→22:07)
[2021-12-13] MEDS: CHOLECALCIFEROL (VITD3) 2,000 UNIT CAP/TAB PO SCH (11:42)
[2021-12-13] MEDS: ACETAMINOPHEN 325 MG TAB PO SCH ×2 (11:42→22:07)
[2021-12-13] MEDS: NICOTINE 21MG/24 HR TOPICAL PATCH TD SCH (11:43)
[2021-12-13] MEDS: LEVALBUTEROL HCL 1.25 MG/3 ML NEB NEB SCH ×2 (13:06→22:26)
[2021-12-13] MEDS: HYDROcodone-ACET 10/325MG TAB PO PRN ×2 (13:29→20:02)
[2021-12-13] MEDS: LORazepam 0.5 MG TAB PO PRN ×2 (13:29→22:09)
[2021-12-13] MEDS: ATORVASTATIN 20 MG TAB PO SCH (22:06)
[2021-12-13] MEDS: LATANOPROST 0.005 % OPTH(EYE) SOL 2.5ML EACHEYE SCH (22:12)
[2021-12-14] VITALS (11 sets, daily range): BP systolic 117–165; BP diastolic 65–92
[2021-12-14] MEDS: LACTULOSE 20Gm/30ML SOLN PO SCH ×5 (03:55→23:27)
[2021-12-14] MEDS: BRIMONIDINE TARTRATE 0.15% OP SCH ×3 (05:46→22:00)
[2021-12-14] MEDS: SODIUM CHLOR 0.9% PF (SALINE LOCK) 10ML VIAL/SYR IV SCH ×2 (05:46→22:54)
[2021-12-14 06:16] LABS: INR 1.05 (0.9-1.15); Partial Thromboplastin Time 25.7 sec (23.6-33.0)
[2021-12-14] MEDS ORDERED: LORazepam 2MG/ML-1ML VIAL IV PRN ×2 (09:45)
[2021-12-14] MEDS: LEVALBUTEROL HCL 1.25 MG/3 ML NEB NEB SCH ×2 (09:51→22:00)
[2021-12-14] MEDS: cefTRIAXone 1GM/50ML D5W 50 ML IV SCH (10:09)
[2021-12-14] MEDS: methylPREDNISolone SOD SUCC 40 MG/ML VL IV SCH (10:10)
[2021-12-14 10:12] LABS: CRP High Sensitivity 0.05 mg/dL (< 0.3)
[2021-12-14] MEDS: DOCUSATE SOD 100 MG CAP PO SCH ×2 (10:21→22:54)
[2021-12-14] MEDS: LOSARTAN POTASSIUM 25 MG TAB PO SCH (10:24)
[2021-12-14] MEDS: ASPirin-EC 81 mg tab PO SCH (10:24)
[2021-12-14] MEDS: levETIRAcetam 500 MG TAB PO SCH ×2 (10:25→22:54)
[2021-12-14] MEDS: METOPROLOL TARTRATE 25 MG TAB PO SCH ×2 (10:25→22:55)
[2021-12-14] MEDS: amLODIPine BESYLATE 5 MG TAB PO SCH (10:26)
[2021-12-14] MEDS: CHOLECALCIFEROL (VITD3) 2,000 UNIT CAP/TAB PO SCH (10:28)
[2021-12-14] MEDS: NICOTINE 21MG/24 HR TOPICAL PATCH TD SCH (10:28)
[2021-12-14] MEDS: LORazepam 0.5 MG TAB PO PRN (10:28)
[2021-12-14] MEDS: HYDROcodone-ACET 10/325MG TAB PO PRN ×2 (10:41→23:30)
[2021-12-14] MEDS: ARIPIPRAZOLE 2 MG PO SCH (10:44)
[2021-12-14] MEDS: FUROSEMIDE 40 MG TAB PO SCH ×2 (10:44→15:29)
[2021-12-14] MEDS: ACETAMINOPHEN 325 MG TAB PO SCH ×2 (10:45→22:00)
[2021-12-14] MEDS: AZITHROMYCIN 500MG/ 250ML 250 ML IV SCH (11:46)
[2021-12-14] MEDS ORDERED: IOHEXOL 350 MG/ML 100ML IJ ONE (13:25)
[2021-12-14] MEDS ORDERED: LIDOCAINE 2%HCL (LOCAL ANESTH.) INJ 10ml MDV ONE (13:26)
[2021-12-14] MEDS ORDERED: ANGIOMAX 250 MG VIAL IV ONE (13:30)
[2021-12-14] MEDS ORDERED: fentaNYL CITRATE 100 MCG/2 ML VL ONE (13:31)
[2021-12-14] MEDS ORDERED: MIDAZOLAM HCL 2MG/2ML 2ml VIAL (1mg/ml) ONE (13:31)
[2021-12-14] MEDS ORDERED: SODIUM CHL 0.9% 0 ML ONE (13:31)
[2021-12-14] MEDS ORDERED: NITROGLYCERIN 0.4MG/DOSE SPRAY 4.9GM ONE (13:43)
[2021-12-14] MEDS: DexAMETHasone SOD PHOS 10MG/1ML VIAL INJ IV SCH (15:28)
[2021-12-14] MEDS: MORPHINE SULFATE INJ 2 MG/ml SYRG IV PRN (18:24)
[2021-12-14] MEDS: LATANOPROST 0.005 % OPTH(EYE) SOL 2.5ML EACHEYE SCH (22:54)
[2021-12-14] MEDS: ATORVASTATIN 20 MG TAB PO SCH (22:54)
[2021-12-15] MEDS: LORazepam 2MG/ML-1ML VIAL IV PRN ×2 (02:42→22:34)
[2021-12-15 05:00] VITALS: BP 135/59
[2021-12-15 05:31] LABS: Calcium 8.6 mg/dL (8.5-10.1); Potassium 4.1 mmol/L (3.5-5.1)
[2021-12-15] MEDS: SODIUM CHLOR 0.9% PF (SALINE LOCK) 10ML VIAL/SYR IV SCH ×3 (05:51→21:59)
[2021-12-15 06:15] LABS: Hematocrit 39.1 % (36.0-46.0); Hemoglobin 12.8 g/dL (12.2-16.2); Mean Corpuscular Hemoglobin 31.1 pg (28.0-32.0); Mean Corpuscular Hgb Conc. 32.8 g/dL (32.0-36.0); Mean Corpuscular Volume 94.9 fL (80.0-100.0); Red Blood Cells 4.12 10^6/uL (4.0-5.20); Red Cell Distribution Width 13.5 % (11.8-14.3)
[2021-12-15 06:20] LABS: Basophils % (manual) 0 (0.0-2.0); Blast Cells 0; Eosinophils % (manual) 0 (0-7); Metamyelocytes % 0; Promyelocytes % 0; Reactive Lymphocytes 0
[2021-12-15] MEDS: BRIMONIDINE TARTRATE 0.15% OP SCH ×3 (06:30→21:59)
[2021-12-15] MEDS: LACTULOSE 20Gm/30ML SOLN PO SCH ×4 (06:30→23:40)
[2021-12-15 08:05] VITALS: BP 135/59
[2021-12-15 08:21] LABS: Band Neutrophils % (manual) 1; Lymphocytes % (manual) 13 (10.0-50.0); Monocytes % (manual) 8 (0-12); Myelocytes % 1
[2021-12-15 09:00] VITALS: BP 130/75
[2021-12-15] MEDS ORDERED: LORazepam 2MG/ML-1ML VIAL IV PRN (10:00)
[2021-12-15] MEDS: LEVALBUTEROL HCL 1.25 MG/3 ML NEB NEB SCH ×2 (10:00→23:00)
[2021-12-15 10:51] VITALS: BP 130/75
[2021-12-15] MEDS: DexAMETHasone SOD PHOS 10MG/1ML VIAL INJ IV SCH (11:10)
[2021-12-15] MEDS: ARIPIPRAZOLE 2 MG PO SCH (11:10)
[2021-12-15] MEDS: cefTRIAXone 1GM/50ML D5W 50 ML IV SCH (11:10)
[2021-12-15] MEDS: DOCUSATE SOD 100 MG CAP PO SCH ×2 (11:11→21:59)
[2021-12-15] MEDS: ASPirin-EC 81 mg tab PO SCH (11:17)
[2021-12-15] MEDS: LOSARTAN POTASSIUM 25 MG TAB PO SCH (11:17)
[2021-12-15] MEDS: levETIRAcetam 500 MG TAB PO SCH ×2 (11:18→22:00)
[2021-12-15] MEDS: FUROSEMIDE 40 MG TAB PO SCH (11:18)
[2021-12-15] MEDS: ACETAMINOPHEN 325 MG TAB PO SCH ×2 (11:19→22:00)
[2021-12-15] MEDS: amLODIPine BESYLATE 5 MG TAB PO SCH (11:19)
[2021-12-15] MEDS: NICOTINE 21MG/24 HR TOPICAL PATCH TD SCH (11:20)
[2021-12-15] MEDS: CHOLECALCIFEROL (VITD3) 2,000 UNIT CAP/TAB PO SCH (11:20)
[2021-12-15] MEDS: METOPROLOL TARTRATE 25 MG TAB PO SCH ×2 (11:21→22:00)
[2021-12-15] MEDS: AZITHROMYCIN 500MG/ 250ML 250 ML IV SCH (12:35)
[2021-12-15] MEDS: IPRATROPIUM BROM 0.5 MG/2.5ML INH SOL NEB PRN (12:43)
[2021-12-15] MEDS: ALBUTEROL SULF 2.5 MG/0.5ML(0.5%) NEB SOLN NEB PRN (12:43)
[2021-12-15 13:00] VITALS: BP 152/88
[2021-12-15] MEDS: SIMETHICONE 80 MG CHEWABLE TABLET PO PRN ×2 (14:43→23:40)
[2021-12-15] MEDS: HYDROcodone-ACET 10/325MG TAB PO PRN (18:41)
[2021-12-15 22:00] VITALS: BP 127/65
[2021-12-15] MEDS: ATORVASTATIN 20 MG TAB PO SCH (22:00)
[2021-12-15] MEDS: LATANOPROST 0.005 % OPTH(EYE) SOL 2.5ML EACHEYE SCH (22:33)
[2021-12-16 05:00] VITALS: BP 122/63
[2021-12-16] MEDS: LACTULOSE 20Gm/30ML SOLN PO SCH ×2 (05:53→12:00)
[2021-12-16] MEDS: SODIUM CHLOR 0.9% PF (SALINE LOCK) 10ML VIAL/SYR IV SCH (05:54)
[2021-12-16 06:10] LABS: Hematocrit 38.9 % (36.0-46.0); Hemoglobin 12.5 g/dL (12.2-16.2); Mean Corpuscular Hemoglobin 30.4 pg (28.0-32.0); Mean Corpuscular Hgb Conc. 32.2 g/dL (32.0-36.0); Mean Corpuscular Volume 94.3 fL (80.0-100.0); Red Blood Cells 4.13 10^6/uL (4.0-5.20); Red Cell Distribution Width 13.5 % (11.8-14.3); White Blood Cell 12.9 10^3/uL (4.4-10.8)
[2021-12-16 06:12] LABS: Basophils % (manual) 0 (0.0-2.0); Blast Cells 0; Eosinophils % (manual) 0 (0-7); Myelocytes % 0; Promyelocytes % 0; Reactive Lymphocytes 0
[2021-12-16] MEDS: LEVALBUTEROL HCL 1.25 MG/3 ML NEB NEB SCH (06:29)
[2021-12-16 06:33] LABS: BUN/Creatinine Ratio 43.5; Calcium 8.4 mg/dL (8.5-10.1); Potassium 4.2 mmol/L (3.5-5.1)
[2021-12-16] MEDS: BRIMONIDINE TARTRATE 0.15% OP SCH (06:47)
[2021-12-16] MEDS ORDERED: diphenhdrAMINE HCL 25 MG CAP PO ONE (07:00)
[2021-12-16 08:00] VITALS: BP 120/66
[2021-12-16] MEDS: cefTRIAXone 1GM/50ML D5W 50 ML IV SCH (08:56)
[2021-12-16] MEDS: DexAMETHasone SOD PHOS 10MG/1ML VIAL INJ IV SCH (08:56)
[2021-12-16] MEDS: LORazepam 2MG/ML-1ML VIAL IV PRN (08:56)
[2021-12-16] MEDS: LOSARTAN POTASSIUM 25 MG TAB PO SCH (08:57)
[2021-12-16] MEDS: levETIRAcetam 500 MG TAB PO SCH (08:57)
[2021-12-16] MEDS: DOCUSATE SOD 100 MG CAP PO SCH (08:57)
[2021-12-16] MEDS: ASPirin-EC 81 mg tab PO SCH (08:57)
[2021-12-16] MEDS: FUROSEMIDE 40 MG TAB PO SCH (08:58)
[2021-12-16] MEDS: amLODIPine BESYLATE 5 MG TAB PO SCH (08:58)
[2021-12-16] MEDS: METOPROLOL TARTRATE 25 MG TAB PO SCH (08:58)
[2021-12-16] MEDS: ACETAMINOPHEN 325 MG TAB PO SCH (08:59)
[2021-12-16] MEDS: NICOTINE 21MG/24 HR TOPICAL PATCH TD SCH (08:59)
[2021-12-16] MEDS: CHOLECALCIFEROL (VITD3) 2,000 UNIT CAP/TAB PO SCH (08:59)
[2021-12-16] MEDS: ARIPIPRAZOLE 2 MG PO SCH (09:58)
[2021-12-16] MEDS: AZITHROMYCIN 500MG/ 250ML 250 ML IV SCH (09:58)
[2021-12-16 12:00] VITALS: BP 110/60
[2021-12-16] MEDS: HYDROcodone-ACET 10/325MG TAB PO PRN (13:01)
[2021-12-16] MEDS: ONDANSETRON ODT 4 MG TAB PO PRN (13:01)
[2021-12-16 14:02] LABS: Band Neutrophils % (manual) 2; Lymphocytes % (manual) 22 (10.0-50.0); Metamyelocytes % 2; Monocytes % (manual) 5 (0-12)
== END 2021-12-16 13:54 | disposition home or self-care (01) | DRG 192 ==
LOC: ER 04:13 → TELE 10:12 → TELE-WESTW 17:32
PROVIDERS: ADMIT Internal Medicine; ATTEND Internal Medicine Pulmonary Disease
PROC: 4A023N7 Measurement of Cardiac Sampling and Pressure, Left Heart, Percutaneous Approach (ICD-10-PCS; principal; 2021-12-13)
PROC: B2111ZZ Fluoroscopy of Multiple Coronary Arteries using Low Osmolar Contrast (ICD-10-PCS; 2021-12-13)
PROC: B2151ZZ Fluoroscopy of Left Heart using Low Osmolar Contrast (ICD-10-PCS; 2021-12-13)
DX: I11.0 Hypertensive heart disease with heart failure (principal); J96.11 Chronic respiratory failure with hypoxia; J44.0 Chronic obstructive pulmonary disease with (acute) lower respiratory infection; J18.9 Pneumonia, unspecified organism; I24.9 Acute ischemic heart disease, unspecified; I50.33 Acute on chronic diastolic (congestive) heart failure; J44.1 Chronic obstructive pulmonary disease with (acute) exacerbation; I44.0 Atrioventricular block, first degree; Z20.822 Contact with and (suspected) exposure to COVID-19; F41.1 Generalized anxiety disorder; F17.210 Nicotine dependence, cigarettes, uncomplicated; G40.909 Epilepsy, unspecified, not intractable, without status epilepticus; H40.9 Unspecified glaucoma; H54.62 Unqualified visual loss, left eye, normal vision right eye; E66.9 Obesity, unspecified; I25.10 Atherosclerotic heart disease of native coronary artery without angina pectoris; K21.9 Gastro-esophageal reflux disease without esophagitis; K59.00 Constipation, unspecified; M19.90 Unspecified osteoarthritis, unspecified site; R32 Unspecified urinary incontinence; Z79.899 Other long term (current) drug therapy; Z80.1 Family history of malignant neoplasm of trachea, bronchus and lung; Z82.49 Family history of ischemic heart disease and other diseases of the circulatory system; I25.2 Old myocardial infarction; Z79.82 Long term (current) use of aspirin; Z83.3 Family history of diabetes mellitus; Z86.73 Personal history of transient ischemic attack (TIA), and cerebral infarction without residual deficits; Z90.710 Acquired absence of both cervix and uterus; Z88.0 Allergy status to penicillin; Z88.6 Allergy status to analgesic agent; Z88.8 Allergy status to other drugs, medicaments and biological substances; Z90.49 Acquired absence of other specified parts of digestive tract; I16.0 Hypertensive urgency
CPT/HCPCS: 36415; 36600; 70450; 70551; 71045; 71250; 71275; 72040; 72100; 80048; 80053; 80061; 81001; 82805; 83880; 84146; 84484; 85007; 85025; 85027; 85610; 85652; 85730; 86141; 86850; 86900; 86901; 87278; 93005; 93458; 93886; 94010; 94640; 99152; C9113; G0378; J0696; J1100; J2001; J2250; Q0162

== ENCOUNTER 2022-10-27 20:05 | Inpatient (IN) | payer MEDICARE, MEDICAID ==
[~2022-10-27] VITALS: Ht 172.7 cm; Wt 120.5 kg
[2022-10-27 21:50] LABS: Basophils # (auto) 0.1 10 ^3/uL (0-0.2); Basophils % (auto) 1.4 % (0.0-2.0); Eosinophils # (auto) 0.2 10 ^3/uL (0-0.8); Eosinophils % (auto) 2.1 % (0.0-7.0); Hematocrit 43.2 % (36.0-46.0); Hemoglobin 14.7 g/dL (12.2-16.2); Lymphocytes # (auto) 2.9 10 ^3/uL (0.4-5.4); Lymphocytes % (auto) 35.9 % (10.0-50.0); Mean Corpuscular Hemoglobin 32.1 pg (28.0-32.0); Mean Corpuscular Hgb Conc. 33.9 g/dL (32.0-36.0); Mean Corpuscular Volume 94.7 fL (80.0-100.0); Monocytes # (auto) 0.7 10 ^3/uL (0-1.3); Monocytes % (auto) 8.9 % (0.0-12.0); Neutrophils # (auto) 4.2 10 ^3/uL (1.6-8.6); Neutrophils % (auto) 51.7 % (37.0-80.0); Nucleated Red Blood Cells % 0.3 %; Red Blood Cells 4.56 10^6/uL (4.0-5.20); Red Cell Distribution Width 13.8 % (11.8-14.3); White Blood Cell 8.1 10^3/uL (4.4-10.8)
[2022-10-27 21:58] LABS: Calcium 9.2 mg/dL (8.5-10.1); Potassium 3.8 mmol/L (3.5-5.1)
[2022-10-27 22:02] LABS: BUN/Creatinine Ratio 31.3 (10.0-20.0); Bilirubin, Total 0.8 mg/dL (0.2-1.0); Total Protein 7.6 g/dL (6.4-8.2)
[2022-10-27] MEDS ORDERED: ONDANSETRON ODT 4 MG TAB PO ONE (23:30)
[2022-10-27] MEDS ORDERED: OXYCODONE W/ ACETAMINOPHEN 5/325MG TABLET PO ONE (23:30)
[2022-10-28] MEDS ORDERED: HYDROmorphone HCL 2 MG/ML VL/or syr IV ONE (02:30)
[2022-10-28] MEDS ORDERED: SODIUM CHLORIDE 0.9% 500 ML IV ONE (02:30)
[2022-10-28 04:29] LABS: Urine Bacteria MANY /hpf (None Seen); Urine Blood Negative /uL (Negative); Urine Hyaline Cast FEW /lpf (0 - 2); Urine Mucus MODERATE (None Seen); Urine Specific Gravity 1.025 (1.001-1.035); Urine WBC 13 /hpf (0 - 5)
[2022-10-28] MEDS ORDERED: cefTRIAXone 1GM/50ML D5W 50 ML IV ONE (04:45)
[2022-10-28] MEDS ORDERED: AZITHROMYCIN 500MG/ 250ML 250 ML IV ONE (04:45)
[2022-10-28] MEDS ORDERED: levoFLOXacin 500MG 100 ML IV ONE (05:00)
[2022-10-28] MEDS ORDERED: ALBUTEROL SULF 2.5 MG/0.5ML(0.5%) NEB SOLN NEB PRN (06:45)
[2022-10-28] MEDS ORDERED: ACETAMINOPHEN 325 MG TAB PO PRN (06:45)
[2022-10-28] MEDS ORDERED: LORazepam 2MG/ML-1ML VIAL IV PRN (06:45)
[2022-10-28] MEDS ORDERED: HYDROcodone-ACET 5/325MG TAB PO PRN (06:45)
[2022-10-28] MEDS ORDERED: ONDANSETRON HCL 4 MG/2 ML VIAL IV PRN (06:45)
[2022-10-28] MEDS: levETIRAcetam 500 MG TAB PO SCH ×2 (11:35→23:06)
[2022-10-28] MEDS: METOPROLOL TARTRATE 25 MG TAB PO SCH ×2 (11:36→23:07)
[2022-10-28] MEDS: amLODIPine BESYLATE 5 MG TAB PO SCH (11:37)
[2022-10-28] MEDS: FUROSEMIDE 40 MG TAB PO SCH (11:38)
[2022-10-28] MEDS: PANTOPRAZOLE 40 MG TAB PO SCH (11:38)
[2022-10-28] MEDS: ENOXAPARIN SOD 40 MG/0.4 ML SYRINGE SC SCH (11:39)
[2022-10-28] MEDS: LOSARTAN POTASSIUM 25 MG TAB PO SCH (11:39)
[2022-10-28] MEDS: levoFLOXacin 500MG 100 ML IV SCH (11:41)
[2022-10-28] MEDS: LORazepam 0.5 MG TAB PO PRN ×2 (11:49→23:14)
[2022-10-28 13:48] VITALS: BP 140/88
[2022-10-28 20:00] VITALS: BP 120/65
[2022-10-28 22:00] VITALS: BP 120/65
[2022-10-28] MEDS: BRIMONIDINE 0.2% OPTH Soln 5ml EACHEYE SCH (22:00)
[2022-10-28] MEDS: ATORVASTATIN 20 MG TAB PO SCH (23:07)
[2022-10-29] VITALS (7 sets, daily range): BP systolic 111–136; BP diastolic 62–69
[2022-10-29] MEDS: BRIMONIDINE 0.2% OPTH Soln 5ml EACHEYE SCH ×3 (06:00→22:13)
[2022-10-29 07:20] LABS: Basophils # (auto) 0 10 ^3/uL (0-0.2); Basophils % (auto) 0.5 % (0.0-2.0); Eosinophils # (auto) 0.1 10 ^3/uL (0-0.8); Eosinophils % (auto) 1.8 % (0.0-7.0); Hematocrit 42.1 % (36.0-46.0); Hemoglobin 13.9 g/dL (12.2-16.2); Lymphocytes # (auto) 2.4 10 ^3/uL (0.4-5.4); Lymphocytes % (auto) 38.6 % (10.0-50.0); Mean Corpuscular Hemoglobin 31.8 pg (28.0-32.0); Mean Corpuscular Volume 96.3 fL (80.0-100.0); Monocytes # (auto) 0.6 10 ^3/uL (0-1.3); Monocytes % (auto) 9.4 % (0.0-12.0); Neutrophils # (auto) 3.1 10 ^3/uL (1.6-8.6); Neutrophils % (auto) 49.7 % (37.0-80.0); Nucleated Red Blood Cells % 0.1 %; Red Blood Cells 4.37 10^6/uL (4.0-5.20); Red Cell Distribution Width 14.3 % (11.8-14.3); White Blood Cell 6.1 10^3/uL (4.4-10.8)
[2022-10-29 07:55] LABS: Potassium 4.4 mmol/L (3.5-5.1)
[2022-10-29 08:02] LABS: BUN/Creatinine Ratio 31.4 (10.0-20.0); Calcium 9.1 mg/dL (8.5-10.1)
[2022-10-29] MEDS: levETIRAcetam 500 MG TAB PO SCH ×2 (10:25→22:01)
[2022-10-29] MEDS: PANTOPRAZOLE 40 MG TAB PO SCH (10:25)
[2022-10-29] MEDS: METOPROLOL TARTRATE 25 MG TAB PO SCH ×2 (10:26→22:07)
[2022-10-29] MEDS: FUROSEMIDE 40 MG TAB PO SCH (10:27)
[2022-10-29] MEDS: LOSARTAN POTASSIUM 25 MG TAB PO SCH (10:27)
[2022-10-29] MEDS: amLODIPine BESYLATE 5 MG TAB PO SCH (10:28)
[2022-10-29] MEDS: ENOXAPARIN SOD 40 MG/0.4 ML SYRINGE SC SCH (10:29)
[2022-10-29] MEDS: levoFLOXacin 500MG 100 ML IV SCH (10:29)
[2022-10-29] MEDS: LORazepam 0.5 MG TAB PO PRN ×2 (15:52→22:00)
[2022-10-29] MEDS: ATORVASTATIN 20 MG TAB PO SCH (22:01)
[2022-10-30] MEDS: BRIMONIDINE 0.2% OPTH Soln 5ml EACHEYE SCH ×3 (05:29→21:47)
[2022-10-30 06:00] LABS: Basophils # (auto) 0.1 10 ^3/uL (0-0.2); Basophils % (auto) 1.1 % (0.0-2.0); Eosinophils # (auto) 0.2 10 ^3/uL (0-0.8); Eosinophils % (auto) 2.5 % (0.0-7.0); Hematocrit 42.3 % (36.0-46.0); Hemoglobin 14.1 g/dL (12.2-16.2); Lymphocytes # (auto) 2.6 10 ^3/uL (0.4-5.4); Lymphocytes % (auto) 39.2 % (10.0-50.0); Mean Corpuscular Hemoglobin 32.1 pg (28.0-32.0); Mean Corpuscular Hgb Conc. 33.4 g/dL (32.0-36.0); Mean Corpuscular Volume 96.1 fL (80.0-100.0); Monocytes # (auto) 0.7 10 ^3/uL (0-1.3); Monocytes % (auto) 10.2 % (0.0-12.0); Neutrophils # (auto) 3.1 10 ^3/uL (1.6-8.6); Nucleated Red Blood Cells % 0.2 %; Red Blood Cells 4.41 10^6/uL (4.0-5.20); Red Cell Distribution Width 14.1 % (11.8-14.3); White Blood Cell 6.6 10^3/uL (4.4-10.8)
[2022-10-30 06:15] LABS: Calcium 9.1 mg/dL (8.5-10.1)
[2022-10-30 06:17] LABS: BUN/Creatinine Ratio 38.2 (10.0-20.0)
[2022-10-30 08:00] VITALS: BP 139/85
[2022-10-30 09:00] VITALS: BP 139/85
[2022-10-30] MEDS: levoFLOXacin 500MG 100 ML IV SCH (09:37)
[2022-10-30] MEDS: levETIRAcetam 500 MG TAB PO SCH ×2 (09:38→21:47)
[2022-10-30] MEDS: FUROSEMIDE 40 MG TAB PO SCH (09:39)
[2022-10-30] MEDS: amLODIPine BESYLATE 5 MG TAB PO SCH (09:40)
[2022-10-30] MEDS: METOPROLOL TARTRATE 25 MG TAB PO SCH ×2 (09:41→21:47)
[2022-10-30] MEDS: LOSARTAN POTASSIUM 25 MG TAB PO SCH (09:41)
[2022-10-30] MEDS: LORazepam 0.5 MG TAB PO PRN (09:42)
[2022-10-30] MEDS: ENOXAPARIN SOD 40 MG/0.4 ML SYRINGE SC SCH (09:42)
[2022-10-30] MEDS: PANTOPRAZOLE 40 MG TAB PO SCH (09:47)
[2022-10-30 13:00] VITALS: BP 140/84
[2022-10-30 16:58] VITALS: BP 125/62
[2022-10-30] MEDS: ATORVASTATIN 20 MG TAB PO SCH (21:47)
[2022-10-30 22:00] VITALS: BP 128/64
[2022-10-31] VITALS (7 sets, daily range): BP systolic 87–145; BP diastolic 52–89
[2022-10-31] MEDS: HYDROcodone-ACET 5/325MG TAB PO PRN ×2 (00:49→06:06)
[2022-10-31] MEDS: BRIMONIDINE 0.2% OPTH Soln 5ml EACHEYE SCH ×3 (06:06→21:44)
[2022-10-31] MEDS: levoFLOXacin 500MG 100 ML IV SCH (09:41)
[2022-10-31] MEDS: LOSARTAN POTASSIUM 25 MG TAB PO SCH (09:42)
[2022-10-31] MEDS: PANTOPRAZOLE 40 MG TAB PO SCH (09:42)
[2022-10-31] MEDS: FUROSEMIDE 40 MG TAB PO SCH (09:42)
[2022-10-31] MEDS: levETIRAcetam 500 MG TAB PO SCH ×2 (09:43→21:43)
[2022-10-31] MEDS: METOPROLOL TARTRATE 25 MG TAB PO SCH ×2 (09:43→21:44)
[2022-10-31] MEDS: amLODIPine BESYLATE 5 MG TAB PO SCH (09:43)
[2022-10-31] MEDS: ENOXAPARIN SOD 40 MG/0.4 ML SYRINGE SC SCH (09:44)
[2022-10-31] MEDS: LORazepam 0.5 MG TAB PO SCH ×2 (14:36→21:43)
[2022-10-31] MEDS: ATORVASTATIN 20 MG TAB PO SCH (21:44)
[2022-11-01 05:00] VITALS: BP 128/64
[2022-11-01] MEDS: BRIMONIDINE 0.2% OPTH Soln 5ml EACHEYE SCH ×3 (05:37→22:11)
[2022-11-01] MEDS: LORazepam 0.5 MG TAB PO SCH ×3 (05:37→22:10)
[2022-11-01 09:00] VITALS: BP 124/80
[2022-11-01] MEDS: levoFLOXacin 500MG 100 ML IV SCH (10:01)
[2022-11-01] MEDS: amLODIPine BESYLATE 5 MG TAB PO SCH (10:02)
[2022-11-01] MEDS: FUROSEMIDE 40 MG TAB PO SCH (10:04)
[2022-11-01] MEDS: levETIRAcetam 500 MG TAB PO SCH ×2 (10:05→22:10)
[2022-11-01] MEDS: PANTOPRAZOLE 40 MG TAB PO SCH (10:05)
[2022-11-01] MEDS: METOPROLOL TARTRATE 25 MG TAB PO SCH ×2 (10:05→22:11)
[2022-11-01] MEDS: LOSARTAN POTASSIUM 25 MG TAB PO SCH (10:05)
[2022-11-01] MEDS: ENOXAPARIN SOD 40 MG/0.4 ML SYRINGE SC SCH (10:05)
[2022-11-01] MEDS: HYDROcodone-ACET 5/325MG TAB PO PRN ×2 (10:15→19:52)
[2022-11-01 13:00] VITALS: BP 125/63
[2022-11-01 22:00] VITALS: BP 105/53
[2022-11-01] MEDS: ATORVASTATIN 20 MG TAB PO SCH (22:10)
[2022-11-02] MEDS ORDERED: LORazepam 2MG/ML-1ML VIAL IV PRN
[2022-11-02 01:10] LABS: Cholesterol 162 mg/dL (< 200)
[2022-11-02 01:15] LABS: HDL Cholesterol 55 mg/dL (40-59); LDL Cholesterol 94 mg/dL (< 100)
[2022-11-02 01:22] LABS: Triglycerides 122 mg/dL (< 150)
[2022-11-02] MEDS: HYDROcodone-ACET 5/325MG TAB PO PRN ×2 (02:01→06:08)
[2022-11-02 05:00] VITALS: BP 107/71
[2022-11-02] MEDS: LORazepam 0.5 MG TAB PO SCH ×3 (05:56→21:56)
[2022-11-02] MEDS: BRIMONIDINE 0.2% OPTH Soln 5ml EACHEYE SCH ×3 (05:56→22:09)
[2022-11-02 09:00] VITALS: BP 116/61
[2022-11-02] MEDS: levoFLOXacin 500MG 100 ML IV SCH (09:22)
[2022-11-02] MEDS: ENOXAPARIN SOD 40 MG/0.4 ML SYRINGE SC SCH (09:23)
[2022-11-02] MEDS: ASPirin-EC 81 mg tab PO SCH (09:23)
[2022-11-02] MEDS: amLODIPine BESYLATE 5 MG TAB PO SCH (09:24)
[2022-11-02] MEDS: levETIRAcetam 500 MG TAB PO SCH ×2 (09:24→21:56)
[2022-11-02] MEDS: METOPROLOL TARTRATE 25 MG TAB PO SCH ×2 (09:25→21:57)
[2022-11-02] MEDS: FUROSEMIDE 40 MG TAB PO SCH (09:25)
[2022-11-02] MEDS: LOSARTAN POTASSIUM 25 MG TAB PO SCH (09:26)
[2022-11-02 13:00] VITALS: BP_SYST 119; BP_SYST 123; BP_DIAS 56; BP_DIAS 77
[2022-11-02 17:00] VITALS: BP 114/65
[2022-11-02] MEDS: ATORVASTATIN 20 MG TAB PO SCH (21:57)
[2022-11-02 22:00] VITALS: BP 115/66
[2022-11-03 05:00] VITALS: BP 137/95
[2022-11-03] MEDS: BRIMONIDINE 0.2% OPTH Soln 5ml EACHEYE SCH ×3 (06:17→21:58)
[2022-11-03] MEDS: LORazepam 0.5 MG TAB PO SCH ×3 (06:17→21:59)
[2022-11-03 09:00] VITALS: BP 106/67
[2022-11-03] MEDS: amLODIPine BESYLATE 5 MG TAB PO SCH (09:38)
[2022-11-03] MEDS: ENOXAPARIN SOD 40 MG/0.4 ML SYRINGE SC SCH (09:38)
[2022-11-03] MEDS: levoFLOXacin 500MG 100 ML IV SCH (09:38)
[2022-11-03] MEDS: ASPirin-EC 81 mg tab PO SCH (09:38)
[2022-11-03] MEDS: METOPROLOL TARTRATE 25 MG TAB PO SCH ×2 (09:39→21:59)
[2022-11-03] MEDS: FUROSEMIDE 40 MG TAB PO SCH (09:39)
[2022-11-03] MEDS: LOSARTAN POTASSIUM 25 MG TAB PO SCH (09:39)
[2022-11-03] MEDS: levETIRAcetam 500 MG TAB PO SCH ×2 (09:39→21:59)
[2022-11-03 13:00] VITALS: BP 98/58
[2022-11-03] MEDS: ATORVASTATIN 20 MG TAB PO SCH (21:59)
[2022-11-03 22:00] VITALS: BP 115/76
[2022-11-04 05:00] VITALS: BP 121/86
[2022-11-04] MEDS: LORazepam 0.5 MG TAB PO SCH ×3 (06:01→21:13)
[2022-11-04] MEDS: BRIMONIDINE 0.2% OPTH Soln 5ml EACHEYE SCH ×3 (06:01→21:08)
[2022-11-04 09:00] VITALS: BP 104/56
[2022-11-04] MEDS: levoFLOXacin 500MG 100 ML IV SCH (10:42)
[2022-11-04] MEDS: FUROSEMIDE 40 MG TAB PO SCH (10:43)
[2022-11-04] MEDS: ASPirin-EC 81 mg tab PO SCH (10:43)
[2022-11-04] MEDS: ENOXAPARIN SOD 40 MG/0.4 ML SYRINGE SC SCH (10:44)
[2022-11-04] MEDS: LOSARTAN POTASSIUM 25 MG TAB PO SCH (10:44)
[2022-11-04] MEDS: levETIRAcetam 500 MG TAB PO SCH ×2 (10:44→21:10)
[2022-11-04] MEDS ORDERED: CITALOPRAM HYDROBR 20 MG TAB PO ONE (11:15)
[2022-11-04] MEDS ORDERED: LORazepam 2MG/ML-1ML VIAL IV ONE (11:15)
[2022-11-04] MEDS ORDERED: buPROPion HCL 75 MG TAB PO ONE (12:00)
[2022-11-04] MEDS: amLODIPine BESYLATE 5 MG TAB PO SCH (12:22)
[2022-11-04] MEDS: METOPROLOL TARTRATE 25 MG TAB PO SCH ×2 (12:22→21:10)
[2022-11-04 13:00] VITALS: BP 156/77
[2022-11-04 17:00] VITALS: BP 118/76
[2022-11-04 20:00] VITALS: BP 120/75
[2022-11-04] MEDS: ATORVASTATIN 20 MG TAB PO SCH (21:14)
[2022-11-04] MEDS: buPROPion HCL 75 MG TAB PO SCH (21:14)
[2022-11-05 05:16] VITALS: BP 123/82
[2022-11-05 06:00] VITALS: BP 120/89
[2022-11-05] MEDS: BRIMONIDINE 0.2% OPTH Soln 5ml EACHEYE SCH (07:17)
[2022-11-05] MEDS: LORazepam 0.5 MG TAB PO SCH (07:17)
[2022-11-05 09:00] VITALS: BP 120/89
[2022-11-05] MEDS: ENOXAPARIN SOD 40 MG/0.4 ML SYRINGE SC SCH (09:27)
[2022-11-05] MEDS: LOSARTAN POTASSIUM 25 MG TAB PO SCH (09:28)
[2022-11-05] MEDS: levETIRAcetam 500 MG TAB PO SCH (09:28)
[2022-11-05] MEDS: FUROSEMIDE 40 MG TAB PO SCH (09:29)
[2022-11-05] MEDS: METOPROLOL TARTRATE 25 MG TAB PO SCH (09:29)
[2022-11-05] MEDS: ASPirin-EC 81 mg tab PO SCH (09:29)
[2022-11-05] MEDS: buPROPion HCL 75 MG TAB PO SCH (09:30)
[2022-11-05] MEDS: HYDROcodone-ACET 5/325MG TAB PO PRN (09:33)
[2022-11-05] MEDS: levoFLOXacin 500MG 100 ML IV SCH (10:00)
[2022-11-05] MEDS ORDERED: CITALOPRAM HYDROBR 20 MG TAB PO SCH (10:00)
[2022-11-05] MEDS ORDERED: CITA40TA12 PO (11:55)
[2022-11-05] MEDS ORDERED: LORA0.5T20 PO (11:55)
[2022-11-05] MEDS ORDERED: LEVO500T31 PO (11:55)
[2022-11-05] MEDS ORDERED: BUPR150T8 PO (11:55)
[2022-11-05 13:00] VITALS: BP 120/89
[2022-11-05 13:36] VITALS: BP 126/80
== END 2022-11-05 14:45 | disposition home or self-care (01) | DRG 100 ==
LOC: ER 20:05 → OVERFLOW 10-28 06:43 → WEST WING 10-28 17:38
PROVIDERS: ADMIT Nurse Practitioner; ATTEND Family Medicine
DX: G40.909 Epilepsy, unspecified, not intractable, without status epilepticus (principal); J18.9 Pneumonia, unspecified organism; J96.01 Acute respiratory failure with hypoxia; J44.1 Chronic obstructive pulmonary disease with (acute) exacerbation; N39.0 Urinary tract infection, site not specified; F32.1 Major depressive disorder, single episode, moderate; I11.0 Hypertensive heart disease with heart failure; E66.01 Morbid (severe) obesity due to excess calories; I50.9 Heart failure, unspecified; F40.240 Claustrophobia; H54.62 Unqualified visual loss, left eye, normal vision right eye; I25.10 Atherosclerotic heart disease of native coronary artery without angina pectoris; I77.810 Thoracic aortic ectasia; E78.00 Pure hypercholesterolemia, unspecified; Z88.0 Allergy status to penicillin; Z88.8 Allergy status to other drugs, medicaments and biological substances; Z79.899 Other long term (current) drug therapy; Z79.82 Long term (current) use of aspirin; Z80.1 Family history of malignant neoplasm of trachea, bronchus and lung; Z82.49 Family history of ischemic heart disease and other diseases of the circulatory system; Z83.3 Family history of diabetes mellitus; I25.2 Old myocardial infarction; Z86.718 Personal history of other venous thrombosis and embolism
CPT/HCPCS: 36415; 70450; 70551; 71045; 71250; 74176; 80048; 80053; 80061; 81001; 82542; 83880; 84484; 85025; 93005; 96361; 96365; 96375; G0378; J1956; Q0162

== ENCOUNTER 2023-08-22 12:52 | Emergency (ER) | payer MEDICARE, MEDICAID ==
[~2023-08-22] VITALS: Ht 172.7 cm; Wt 117.2 kg
[~2023-08-22 12:52] MED LIST changes: +BUPR150T8 PO; +CITA40TA12 PO; -LATA0.0019 EACHEYE; -LATA0.0019 OP; +LATA0.008 EACHEYE; +LATA0.008 OP; -LEVE500T32 PO; +LEVE500T40 PO; -LEVO-28 PO; +LEVO500T31 PO; +LEVO500T91 PO; +LORA-1121 PO; +LORA-1123 PO; -LORA0.5T20 PO; -LORA1TAB23 PO; +LOSA25TA15 PO; -LOSA25TA38 PO; -MIRT-68 PO; +MIRT-93 PO
[2023-08-22 13:26] LABS: Basophils # (auto) 0.1 10 ^3/uL (0-0.2); Basophils % (auto) 0.8 % (0.0-2.0); Eosinophils # (auto) 0.1 10 ^3/uL (0-0.8); Eosinophils % (auto) 1.3 % (0.0-7.0); Hemoglobin 14.3 g/dL (12.2-16.2); Lymphocytes # (auto) 2.9 10 ^3/uL (0.4-5.4); Lymphocytes % (auto) 33.6 % (10.0-50.0); Mean Corpuscular Hemoglobin 31.4 pg (28.0-32.0); Mean Corpuscular Hgb Conc. 33.3 g/dL (32.0-36.0); Mean Corpuscular Volume 94.5 fL (80.0-100.0); Monocytes # (auto) 0.7 10 ^3/uL (0-1.3); Neutrophils # (auto) 4.8 10 ^3/uL (1.6-8.6); Neutrophils % (auto) 56.3 % (37.0-80.0); Nucleated Red Blood Cells % 0.1 %; Red Blood Cells 4.55 10^6/uL (4.0-5.20); Red Cell Distribution Width 14.3 % (11.8-14.3); White Blood Cell 8.5 10^3/uL (4.4-10.8)
[2023-08-22 13:47] LABS: Alanine Aminotransferase 12 U/L (7-40); Albumin 4.5 g/dL (3.2-4.8); Alkaline Phosphatase 117 U/L (46-116); Anion Gap 5 (5-15); Aspartate Aminotransferase 15 U/L (13-40); BUN/Creatinine Ratio 19.5 (10.0-20.0); Blood Urea Nitrogen 16 mg/dL (9-23); Calcium 9.8 mg/dL (8.5-10.1); Carbon Dioxide 25 mmol/L (20-30); Chloride 109 mmol/L (98-107); Glucose 93 mg/dL (74-106); Potassium 4.2 mmol/L (3.5-5.1); Sodium 139 mmol/L (136-145)
[2023-08-22 13:48] LABS: Bilirubin, Total 0.6 mg/dL (0.2-1.0); Total Protein 7.1 g/dL (5.7-8.2)
[2023-08-22] MEDS: ASPirin 325 MG TAB PO ONE (14:44)
[2023-08-22] MEDS: cloNIDine HCL 0.1 MG TAB PO ONE (14:45)
[2023-08-22 15:21] VITALS: BP 146/92; PULSE 84; RESP 22; O2SAT 100
== END 2023-08-22 15:23 | disposition home or self-care (01) ==
LOC: ER 12:52
DX: I11.0 Hypertensive heart disease with heart failure (principal); I50.9 Heart failure, unspecified; J44.9 Chronic obstructive pulmonary disease, unspecified; F17.210 Nicotine dependence, cigarettes, uncomplicated; Z86.73 Personal history of transient ischemic attack (TIA), and cerebral infarction without residual deficits; Z90.49 Acquired absence of other specified parts of digestive tract; Z90.89 Acquired absence of other organs; Z90.710 Acquired absence of both cervix and uterus; Z79.899 Other long term (current) drug therapy; Z79.82 Long term (current) use of aspirin; Z79.2 Long term (current) use of antibiotics; Z88.0 Allergy status to penicillin; Z88.8 Allergy status to other drugs, medicaments and biological substances
CPT/HCPCS: 36415; 70450; 80053; 84484; 85025; 93005

== ENCOUNTER 2023-12-25 15:39 | Inpatient (IN) | payer MEDICARE, MEDICAID ==
[~2023-12-25] VITALS: Ht 172.7 cm; Wt 119.6 kg
[~2023-12-25 15:39] MED LIST changes: -BRIM0.159 OP; +LOSA-533 PO; -LOSA25TA15 PO
[2023-12-25] MEDS: NITROGLYCERIN 0.4 MG SL TAB SL ONE ×2 (15:45→20:04)
[2023-12-25] MEDS: cloNIDine HCL 0.1 MG TAB PO ONE (16:35)
[2023-12-25] MEDS: MORPHINE SULFATE 4 MG/ML SYR/VIAL IV ONE (16:39)
[2023-12-25] MEDS: ONDANSETRON HCL 4 MG/2 ML VIAL IV ONE (16:39)
[2023-12-25] MEDS: ASPirin 325 MG TAB PO ONE (16:39)
[2023-12-25 17:01] LABS: Basophils # (auto) 0 10 ^3/uL (0-0.2); Basophils % (auto) 0.4 % (0.0-2.0); Eosinophils # (auto) 0.1 10 ^3/uL (0-0.8); Eosinophils % (auto) 1.9 % (0.0-7.0); Hematocrit 41.5 % (36.0-46.0); Hemoglobin 13.7 g/dL (12.2-16.2); Lymphocytes # (auto) 2.5 10 ^3/uL (0.4-5.4); Lymphocytes % (auto) 39.3 % (10.0-50.0); Mean Corpuscular Hemoglobin 31.3 pg (28.0-32.0); Mean Corpuscular Hgb Conc. 33.1 g/dL (32.0-36.0); Mean Corpuscular Volume 94.5 fL (80.0-100.0); Monocytes # (auto) 0.5 10 ^3/uL (0-1.3); Monocytes % (auto) 8.4 % (0.0-12.0); Neutrophils # (auto) 3.2 10 ^3/uL (1.6-8.6); Nucleated Red Blood Cells % 0.2 %; Red Blood Cells 4.39 10^6/uL (4.0-5.20); Red Cell Distribution Width 14.3 % (11.8-14.3); White Blood Cell 6.4 10^3/uL (4.4-10.8)
[2023-12-25 17:06] LABS: Chloride 113 mmol/L (98-107); Potassium 4.3 mmol/L (3.5-5.1); Sodium 144 mmol/L (136-145)
[2023-12-25 17:07] LABS: Anion Gap 6 (5-15); Calcium 9.9 mg/dL (8.5-10.1); Carbon Dioxide 25 mmol/L (20-30)
[2023-12-25 17:12] LABS: BUN/Creatinine Ratio 20.5 (10.0-20.0); Blood Urea Nitrogen 17 mg/dL (9-23); Glucose 96 mg/dL (74-106)
[2023-12-25] MEDS ORDERED: GABA300C PO (17:53)
[2023-12-25] MEDS ORDERED: HYDR-4798 PO (17:53)
[2023-12-25] MEDS: HYDROmorphone HCL 2 MG/ML VL/or syr IV ONE (18:08)
[2023-12-25 19:30] VITALS: PULSE 87; RESP 17; O2SAT 95
[2023-12-25 19:49] LABS: Urine Bacteria FEW /hpf (None Seen); Urine Blood TRACE /uL (Negative); Urine Clarity Clear (Clear); Urine Color Yellow (Yellow); Urine Mucus FEW (None Seen); Urine Protein, UAD Negative (Negative); Urine Specific Gravity 1.025 (1.001-1.035); Urine Urobilinogen Normal (Negative); Urine WBC 2 /hpf (0 - 5); Urine pH 5.5 (5.0-9.0)
[2023-12-25] MEDS ORDERED: ALBUTEROL SULF 2.5 MG/0.5ML(0.5%) NEB SOLN NEB PRN (21:15)
[2023-12-25] MEDS ORDERED: NITROGLYCERIN 0.4 MG SL TAB SL PRN (21:45)
[2023-12-25] MEDS: ONDANSETRON HCL 4 MG/2 ML VIAL IV PRN (22:02)
[2023-12-25] MEDS: MORPHINE SULFATE INJ 2 MG/ml SYRG IV PRN (22:04)
[2023-12-25] MEDS: TEMAZEPAM 15 MG CAP PO PRN (22:04)
[2023-12-25] MEDS: levETIRAcetam 500 MG TAB PO SCH (22:06)
[2023-12-25] MEDS: ATORVASTATIN 20 MG TAB PO SCH (22:07)
[2023-12-25] MEDS: GABAPENTIN 300 MG CAP PO SCH (22:07)
[2023-12-25 22:23] VITALS: BP 147/75; PULSE 80; RESP 20; TEMP 97.9; O2SAT 95
[2023-12-25] MEDS: BRIMONIDINE 0.2% OPTH Soln 5ml EACHEYE SCH (22:44)
[2023-12-26] VITALS (8 sets, daily range): BP systolic 130–143; BP diastolic 62–67; PULSE 69–83; RESP 18–22; TEMP 97.6–98.1; O2SAT 90–99
[2023-12-26 04:46] LABS: Chloride 113 mmol/L (98-107); Potassium 3.9 mmol/L (3.5-5.1); Sodium 141 mmol/L (136-145)
[2023-12-26 04:47] LABS: Anion Gap 5 (5-15); Basophils # (auto) 0.1 10 ^3/uL (0-0.2); Basophils % (auto) 0.8 % (0.0-2.0); Calcium 9.3 mg/dL (8.5-10.1); Carbon Dioxide 23 mmol/L (20-30); Eosinophils # (auto) 0.1 10 ^3/uL (0-0.8); Eosinophils % (auto) 2.1 % (0.0-7.0); Hematocrit 36.9 % (36.0-46.0); Hemoglobin 12.5 g/dL (12.2-16.2); Lymphocytes # (auto) 2.7 10 ^3/uL (0.4-5.4); Lymphocytes % (auto) 40.5 % (10.0-50.0); Mean Corpuscular Hgb Conc. 33.8 g/dL (32.0-36.0); Mean Corpuscular Volume 94.7 fL (80.0-100.0); Monocytes # (auto) 0.6 10 ^3/uL (0-1.3); Monocytes % (auto) 8.7 % (0.0-12.0); Neutrophils # (auto) 3.2 10 ^3/uL (1.6-8.6); Neutrophils % (auto) 47.9 % (37.0-80.0); Nucleated Red Blood Cells % 0.2 %; Red Blood Cells 3.89 10^6/uL (4.0-5.20); Red Cell Distribution Width 14.3 % (11.8-14.3); White Blood Cell 6.7 10^3/uL (4.4-10.8)
[2023-12-26 04:53] LABS: BUN/Creatinine Ratio 19.4 (10.0-20.0); Blood Urea Nitrogen 14 mg/dL (9-23); Glucose 96 mg/dL (74-106)
[2023-12-26] MEDS: FUROSEMIDE 40 MG TAB PO SCH (10:14)
[2023-12-26] MEDS: LOSARTAN POTASSIUM 50 MG TAB PO SCH (10:14)
[2023-12-26] MEDS: ASPirin 81 mg TAB PO SCH (10:15)
[2023-12-26] MEDS: METOPROLOL SUCCINATE XL 50 MG TAB PO ONE (10:15)
[2023-12-26] MEDS ORDERED: HYDROmorphone HCL 2 MG/ML VL/or syr IV PRN (10:30)
[2023-12-26] MEDS: HYDROmorphone HCL 2 MG/ML VL/or syr IV PRN (11:20)
[2023-12-26] MEDS: ALBUTEROL SULF 2.5 MG/0.5ML(0.5%) NEB SOLN NEB SCH (12:00)
[2023-12-26] MEDS ORDERED: KETOROLAC TROMETH 30 MG/ML 1ML VIAL IV PRN (13:30)
[2023-12-26] MEDS ORDERED: IBUPROFEN 600 MG TAB PO SCH (15:00)
[2023-12-26] MEDS: AZITHROMYCIN 500MG/ 250ML 250 ML IV ONE (15:50)
[2023-12-26] MEDS ORDERED: LORA-655 PO (17:44)
[2023-12-26] MEDS ORDERED: LORazepam 0.5 MG TAB PO PRN (17:45)
[2023-12-26] MEDS ORDERED: LORA-1121 PO (17:48)
[2023-12-26] MEDS: LORazepam 0.5 MG TAB PO PRN (17:57)
[2023-12-27] VITALS (18 sets, daily range): BP systolic 105–144; BP diastolic 61–77; PULSE 61–83; RESP 16–21; TEMP 97.6–98.5; O2SAT 93–100
[2023-12-27] MEDS: AZITHROMYCIN 500MG/ 250ML 250 ML IV SCH (09:01)
[2023-12-27] MEDS: ASPirin 81 mg TAB PO SCH (09:02)
[2023-12-27] MEDS: METOPROLOL SUCCINATE XL 50 MG TAB PO SCH (09:04)
[2023-12-27 11:44] LABS: Basophils # (auto) 0 10 ^3/uL (0-0.2); Basophils % (auto) 0.4 % (0.0-2.0); Eosinophils # (auto) 0.1 10 ^3/uL (0-0.8); Eosinophils % (auto) 2.1 % (0.0-7.0); Hematocrit 39.1 % (36.0-46.0); Hemoglobin 12.9 g/dL (12.2-16.2); Lymphocytes # (auto) 1.9 10 ^3/uL (0.4-5.4); Lymphocytes % (auto) 30.3 % (10.0-50.0); Mean Corpuscular Hemoglobin 31.7 pg (28.0-32.0); Mean Corpuscular Hgb Conc. 33.1 g/dL (32.0-36.0); Mean Corpuscular Volume 95.7 fL (80.0-100.0); Monocytes # (auto) 0.3 10 ^3/uL (0-1.3); Monocytes % (auto) 4.7 % (0.0-12.0); Neutrophils # (auto) 3.9 10 ^3/uL (1.6-8.6); Neutrophils % (auto) 62.5 % (37.0-80.0); Nucleated Red Blood Cells % 0.1 %; Red Blood Cells 4.08 10^6/uL (4.0-5.20); Red Cell Distribution Width 14.2 % (11.8-14.3); White Blood Cell 6.3 10^3/uL (4.4-10.8)
[2023-12-27 11:53] LABS: Alanine Aminotransferase 11 U/L (7-40); Alkaline Phosphatase 106 U/L (46-116); Anion Gap 4 (5-15); Aspartate Aminotransferase < 8 U/L (13-40); BUN/Creatinine Ratio 21.7 (10.0-20.0); Bilirubin, Total 0.8 mg/dL (0.2-1.0); Blood Urea Nitrogen 15 mg/dL (9-23); Calcium 9.4 mg/dL (8.5-10.1); Carbon Dioxide 27 mmol/L (20-30); Chloride 109 mmol/L (98-107); Glucose 139 mg/dL (74-106); Potassium 3.7 mmol/L (3.5-5.1); Sodium 140 mmol/L (136-145); Total Protein 6.5 g/dL (5.7-8.2)
[2023-12-27] MEDS ORDERED: ALBU108A5 INH (14:00)
[2023-12-27] MEDS: ALBUTEROL SULF 2.5 MG/0.5ML(0.5%) NEB SOLN NEB ONE (14:35)
[2023-12-27] MEDS ORDERED: ALBUTEROL SULF 2.5 MG/0.5ML(0.5%) NEB SOLN NEB SCH (18:00)
[2023-12-27] MEDS: COLCHICINE 0.6 MG CAP PO SCH (22:15)
[2023-12-28] VITALS (18 sets, daily range): BP systolic 93–127; BP diastolic 44–73; PULSE 63–88; RESP 16–21; TEMP 97.6–98.6; O2SAT 90–99
[2023-12-28 07:10] LABS: Basophils # (auto) 0 10 ^3/uL (0-0.2); Basophils % (auto) 0.3 % (0.0-2.0); Eosinophils # (auto) 0.1 10 ^3/uL (0-0.8); Eosinophils % (auto) 1.6 % (0.0-7.0); Hematocrit 37.9 % (36.0-46.0); Hemoglobin 12.8 g/dL (12.2-16.2); Lymphocytes # (auto) 2.4 10 ^3/uL (0.4-5.4); Lymphocytes % (auto) 38.7 % (10.0-50.0); Mean Corpuscular Hemoglobin 32.1 pg (28.0-32.0); Mean Corpuscular Hgb Conc. 33.8 g/dL (32.0-36.0); Monocytes # (auto) 0.6 10 ^3/uL (0-1.3); Monocytes % (auto) 9.8 % (0.0-12.0); Neutrophils % (auto) 49.6 % (37.0-80.0); Nucleated Red Blood Cells % 0.1 %; Red Blood Cells 3.99 10^6/uL (4.0-5.20); Red Cell Distribution Width 14.1 % (11.8-14.3); White Blood Cell 6.1 10^3/uL (4.4-10.8)
[2023-12-28 07:38] LABS: Anion Gap 4 (5-15); Carbon Dioxide 27 mmol/L (20-30); Chloride 109 mmol/L (98-107); Potassium 4.2 mmol/L (3.5-5.1); Sodium 140 mmol/L (136-145)
[2023-12-28 07:39] LABS: Calcium 9.7 mg/dL (8.5-10.1)
[2023-12-28 07:44] LABS: BUN/Creatinine Ratio 23.6 (10.0-20.0); Blood Urea Nitrogen 17 mg/dL (9-23); Glucose 98 mg/dL (74-106)
[2023-12-28] MEDS ORDERED: AZIT-185 PO (13:49)
[2023-12-28] MEDS ORDERED: IBUP-1453 PO (13:49)
[2023-12-28] MEDS ORDERED: AZITHROMYCIN 250 MG TAB PO SCH (22:00)
[2023-12-29] VITALS (20 sets, daily range): BP systolic 108–167; BP diastolic 47–86; PULSE 61–93; RESP 14–22; TEMP 97.1–98.6; O2SAT 92–100
[2023-12-29 09:25] LABS: Hepatitis B Surface Antigen Negative (Negative)
[2023-12-29 09:46] LABS: Hepatitis C Antibody Negative (Negative)
[2023-12-29] MEDS: AZITHROMYCIN 250 MG TAB PO SCH (10:43)
[2023-12-29] MEDS: ACETAMINOPHEN 325 MG TAB PO PRN (13:50)
[2023-12-30] VITALS (10 sets, daily range): BP systolic 116–144; BP diastolic 62–83; PULSE 63–76; RESP 17–20; TEMP 97.4–98.7; O2SAT 91–99
[2023-12-30] MEDS: traMADol HCL 50 MG TAB PO PRN (15:26)
[2023-12-30] MEDS ORDERED: IBUPROFEN 600 MG TAB PO SCH (22:00)
[2023-12-30] MEDS ORDERED: ONDANSETRON ODT 4 MG TAB PO SCH (22:00)
[2023-12-30] MEDS ORDERED: CYCLOBENZAPRINE HCL 10 MG TAB PO SCH (22:00)
[2023-12-31] MEDS ORDERED: DULoxetine HCL 30 MG CAP PO SCH (10:00)
== END 2023-12-30 18:05 | disposition left against medical advice (07) | DRG 206 ==
LOC: ER 15:39 → EDBD 15:39 → TELE 21:45 → TELE-WESTW 12-26 16:35
PROVIDERS: ADMIT Internal Medicine; ATTEND Emergency Medicine
DX: M94.0 Chondrocostal junction syndrome [Tietze] (principal); J44.1 Chronic obstructive pulmonary disease with (acute) exacerbation; I50.32 Chronic diastolic (congestive) heart failure; I25.110 Atherosclerotic heart disease of native coronary artery with unstable angina pectoris; J44.0 Chronic obstructive pulmonary disease with (acute) lower respiratory infection; I11.0 Hypertensive heart disease with heart failure; E86.0 Dehydration; G40.909 Epilepsy, unspecified, not intractable, without status epilepticus; F32.A Depression, unspecified; F41.9 Anxiety disorder, unspecified; K76.0 Fatty (change of) liver, not elsewhere classified; J20.9 Acute bronchitis, unspecified; F17.210 Nicotine dependence, cigarettes, uncomplicated; I44.0 Atrioventricular block, first degree; E78.5 Hyperlipidemia, unspecified; Z86.73 Personal history of transient ischemic attack (TIA), and cerebral infarction without residual deficits; Z88.0 Allergy status to penicillin; Z88.8 Allergy status to other drugs, medicaments and biological substances; Z79.899 Other long term (current) drug therapy; Z90.710 Acquired absence of both cervix and uterus; Z90.49 Acquired absence of other specified parts of digestive tract; Z80.1 Family history of malignant neoplasm of trachea, bronchus and lung; Z82.49 Family history of ischemic heart disease and other diseases of the circulatory system; Z83.3 Family history of diabetes mellitus; Z95.5 Presence of coronary angioplasty implant and graft; Z79.82 Long term (current) use of aspirin; I25.2 Old myocardial infarction
CPT/HCPCS: 36415; 71045; 71275; 74176; 80048; 80053; 81001; 83690; 83880; 84484; 85025; 85379; 86803; 87340; 93005; 93306; 93970; 94640; G0378; J2405

== ENCOUNTER 2024-03-26 18:08 | Inpatient (IN) | payer MEDICARE, MEDICAID ==
[~2024-03-26] VITALS: Ht 170.2 cm; Wt 113.6 kg
[~2024-03-26 18:08] MED LIST changes: -ALB5IS NEB; +ALBU108A5 INH; -ALBU18; -AML5T PO; -ARIP2TAB PO; +AZIT-185 PO; +AZIT-43 PO; -CHOL1CAP47 PO; -CITA-73 PO; -CITA40TA12 PO; +CLON0.3D4 TOP; -DEXT1SYP9 PO; -DICL0.1S20; +DOCU-265 PO; -FURO40TA4 PO; +GABA300C PO; -GUAI100S6 PO; +HYDR-4798 PO; -HYDR-4833 PO; +IBUP-1453 PO; -IPR002IS NEB; -IPRIH INH; -LATA0.008 OP; -LEVA3NEB9 NEB; -LEVE500T40 PO; -LEVO500T31 PO; -LEVO500T91 PO; -LORA-1123 PO; -MET25T PO; -PRAM0.252 PO; +PROM6.2520 PO
[2024-03-26 19:24] LABS: Basophils # (auto) 0 10 ^3/uL (0-0.2); Basophils % (auto) 0.5 % (0.0-2.0); Eosinophils # (auto) 0.1 10 ^3/uL (0-0.8); Eosinophils % (auto) 1.8 % (0.0-7.0); Hematocrit 43.2 % (36.0-46.0); Hemoglobin 14.5 g/dL (12.2-16.2); Lymphocytes # (auto) 3.1 10 ^3/uL (0.4-5.4); Lymphocytes % (auto) 38.2 % (10.0-50.0); Mean Corpuscular Hemoglobin 31.9 pg (28.0-32.0); Mean Corpuscular Hgb Conc. 33.7 g/dL (32.0-36.0); Mean Corpuscular Volume 94.7 fL (80.0-100.0); Monocytes # (auto) 0.6 10 ^3/uL (0-1.3); Monocytes % (auto) 7.5 % (0.0-12.0); Neutrophils # (auto) 4.2 10 ^3/uL (1.6-8.6); Nucleated Red Blood Cells % 0.1 %; Platelet Count (auto) 217 10^3/uL (140-450); Red Blood Cells 4.56 10^6/uL (4.0-5.20); Red Cell Distribution Width 14.2 % (11.8-14.3); White Blood Cell 8.1 10^3/uL (4.4-10.8)
[2024-03-26 19:36] VITALS: PULSE 86; RESP 18; O2SAT 96
[2024-03-26 19:48] LABS: Alanine Aminotransferase 13 U/L (7-40); Albumin 4.7 g/dL (3.2-4.8); Alkaline Phosphatase 116 U/L (46-116); Anion Gap 8 (5-15); Aspartate Aminotransferase 9 U/L (13-40); BUN/Creatinine Ratio 16.5 (10.0-20.0); Blood Urea Nitrogen 15 mg/dL (9-23); Carbon Dioxide 26 mmol/L (20-31); Chloride 110 mmol/L (98-107); Glucose 111 mg/dL (74-106); Lipase 31 U/L (12-53); Potassium 3.4 mmol/L (3.5-5.1); Sodium 144 mmol/L (136-145)
[2024-03-26 19:49] LABS: Bilirubin, Total 0.9 mg/dL (0.2-1.0); Total Protein 7.7 g/dL (5.7-8.2)
[2024-03-26] MEDS: SODIUM CHLORIDE 0.9% 1,000 ML IV ONE (20:22)
[2024-03-26] MEDS: fentaNYL CITRATE 100 MCG/2 ML VL IV ONE (20:23)
[2024-03-26] MEDS: ONDANSETRON HCL 4 MG/2 ML VIAL IV ONE (20:23)
[2024-03-26 21:01] LABS: Urine Bacteria None Seen /hpf (None Seen)
[2024-03-26 21:07] LABS: Urine Blood Negative /uL (Negative); Urine Clarity Clear (Clear); Urine Color Yellow (Yellow); Urine Mucus FEW (None Seen); Urine Protein, UAD Negative (Negative); Urine Specific Gravity 1.023 (1.001-1.035); Urine Urobilinogen Normal (Negative); Urine WBC <1 /hpf (0 - 5)
[2024-03-26] MEDS ORDERED: ACETAMINOPHEN 325 MG TAB PO PRN (22:00)
[2024-03-26] MEDS ORDERED: TEMAZEPAM 15 MG CAP PO PRN (22:00)
[2024-03-26] MEDS ORDERED: HYDROcodone-ACET 5/325MG TAB PO PRN (22:00)
[2024-03-26] MEDS: levETIRAcetam 500 MG TAB PO SCH (23:50)
[2024-03-26] MEDS: GABAPENTIN 300 MG CAP PO SCH (23:50)
[2024-03-26] MEDS: LACTULOSE 20Gm/30ML SOLN PO SCH (23:50)
[2024-03-26] MEDS: ATORVASTATIN 20 MG TAB PO SCH (23:50)
[2024-03-27] VITALS (8 sets, daily range): BP systolic 94–162; BP diastolic 59–83; PULSE 58–83; RESP 16–20; TEMP 97.3–98.4; O2SAT 91–100
[2024-03-27] MEDS: POLYETHYLENE GLYCOL 17 GM PWDR PO ONE (00:07)
[2024-03-27] MEDS: MORPHINE SULFATE INJ 2 MG/ml SYRG IV PRN (00:38)
[2024-03-27] MEDS: POTASSIUM CHL 20 Meq TABLET PO ONE (02:02)
[2024-03-27] MEDS ORDERED: hydrALAZINE HCL 20 MG/ML VL IV PRN (03:00)
[2024-03-27] MEDS: buPROPion HCL 75 MG TAB PO SCH (06:42)
[2024-03-27 07:25] LABS: Chloride 111 mmol/L (98-107); Potassium 3.9 mmol/L (3.5-5.1); Sodium 144 mmol/L (136-145)
[2024-03-27 07:26] LABS: Anion Gap 7 (5-15); Calcium 9.3 mg/dL (8.7-10.4); Carbon Dioxide 26 mmol/L (20-31)
[2024-03-27 07:31] LABS: BUN/Creatinine Ratio 20.3 (10.0-20.0); Blood Urea Nitrogen 15 mg/dL (9-23); Glucose 95 mg/dL (74-106)
[2024-03-27 07:38] LABS: Basophils # (auto) 0 10 ^3/uL (0-0.2); Basophils % (auto) 0.6 % (0.0-2.0); Eosinophils # (auto) 0.1 10 ^3/uL (0-0.8); Eosinophils % (auto) 2.1 % (0.0-7.0); Hematocrit 38.3 % (36.0-46.0); Hemoglobin 13.1 g/dL (12.2-16.2); Lymphocytes # (auto) 2.8 10 ^3/uL (0.4-5.4); Lymphocytes % (auto) 38.5 % (10.0-50.0); Mean Corpuscular Hemoglobin 32.6 pg (28.0-32.0); Mean Corpuscular Hgb Conc. 34.3 g/dL (32.0-36.0); Mean Corpuscular Volume 95.1 fL (80.0-100.0); Monocytes # (auto) 0.7 10 ^3/uL (0-1.3); Monocytes % (auto) 9.5 % (0.0-12.0); Neutrophils # (auto) 3.6 10 ^3/uL (1.6-8.6); Neutrophils % (auto) 49.3 % (37.0-80.0); Nucleated Red Blood Cells % 0.3 %; Platelet Count (auto) 198 10^3/uL (140-450); Red Blood Cells 4.03 10^6/uL (4.0-5.20); Red Cell Distribution Width 14.3 % (11.8-14.3); White Blood Cell 7.3 10^3/uL (4.4-10.8)
[2024-03-27] MEDS ORDERED: KETOROLAC TROMETH 30 MG/ML 1ML VIAL IV PRN (10:00)
[2024-03-27] MEDS ORDERED: KETOROLAC TROMETH 30 MG/ML 1ML VIAL IV ONE (10:00)
[2024-03-27] MEDS: LOSARTAN POTASSIUM 50 MG TAB PO SCH (10:29)
[2024-03-27] MEDS: FUROSEMIDE 40 MG TAB PO SCH (10:31)
[2024-03-27] MEDS: METOPROLOL SUCCINATE XL 50 MG TAB PO SCH (10:32)
[2024-03-27] MEDS: LACTULOSE 20Gm/30ML SOLN PO ONE (10:33)
[2024-03-27] MEDS ORDERED: ALBUTEROL SULF HFA 90MCG INH 200DOSE IN PRN (11:00)
[2024-03-27] MEDS: DICYCLOMINE HCL (10MG/ML) 2 ML AMPULE IM ONE (11:36)
[2024-03-27] MEDS ORDERED: GABAPENTIN 300 MG CAP PO SCH (14:00)
[2024-03-27] MEDS: BISACODYL 5 MG EC TAB PO ONE (15:01)
[2024-03-27] MEDS: ERGOCALCIFEROL 50,000 UNIT(1.25MG) CAP PO SCH (15:02)
[2024-03-27] MEDS: LORazepam 0.5 MG TAB PO PRN (16:00)
[2024-03-27] MEDS: MAGNESIUM CITRATE SOLUTION 300 ML BTL PO ONE (21:26)
[2024-03-27] MEDS: LATANOPROST 0.005 % OPTH(EYE) SOL 2.5ML EACHEYE SCH (21:27)
[2024-03-27] MEDS: levETIRAcetam 500 MG TAB PO SCH (21:31)
[2024-03-27] MEDS: ATORVASTATIN 20 MG TAB PO SCH (21:31)
[2024-03-27] MEDS: LACTULOSE 20Gm/30ML SOLN PO SCH (22:00)
[2024-03-28 01:00] VITALS: BP 128/46; PULSE 72; RESP 18; TEMP 97.9; O2SAT 92
[2024-03-28 05:00] VITALS: BP 144/80; PULSE 59; RESP 20; TEMP 97.7; O2SAT 97
[2024-03-28 07:30] LABS: Anion Gap 6 (5-15); Carbon Dioxide 27 mmol/L (20-31); Chloride 110 mmol/L (98-107); Sodium 143 mmol/L (136-145)
[2024-03-28 07:31] LABS: Calcium 9.7 mg/dL (8.7-10.4)
[2024-03-28 07:36] LABS: BUN/Creatinine Ratio 12.3 (10.0-20.0); Blood Urea Nitrogen 9 mg/dL (9-23); Glucose 88 mg/dL (74-106)
[2024-03-28 09:00] VITALS: BP 141/57; PULSE 62; RESP 20; TEMP 97.7; O2SAT 97
[2024-03-28] MEDS: ASPirin-EC 81 mg tab PO SCH (09:38)
[2024-03-28] MEDS: LOSARTAN POTASSIUM 25 MG TAB PO SCH (09:38)
[2024-03-28] MEDS: FUROSEMIDE 40 MG TAB PO SCH (09:39)
[2024-03-28] MEDS: NICOTINE 21MG/24 HR TOPICAL PATCH TD SCH (09:40)
[2024-03-28] MEDS: ENOXAPARIN SOD 40 MG/0.4 ML SYRINGE SC SCH (09:40)
[2024-03-28] MEDS: ONDANSETRON HCL 4 MG/2 ML VIAL IV PRN (09:41)
[2024-03-28 10:56] VITALS: PULSE 56; RESP 18; O2SAT 97
[2024-03-28] MEDS: IPRATROPIUM BROM 0.5 MG/2.5ML INH SOL NEB PRN (10:56)
[2024-03-28] MEDS: ALBUTEROL SULF 2.5 MG/0.5ML(0.5%) NEB SOLN NEB PRN (10:56)
[2024-03-28] MEDS ORDERED: LORazepam 0.5 MG TAB PO PRN (11:15)
[2024-03-28] MEDS ORDERED: HYDROcodone-ACET 5/325MG TAB PO PRN (11:15)
[2024-03-28] MEDS: LORazepam 0.5 MG TAB PO ONE (11:29)
[2024-03-28 13:00] VITALS: BP 140/73; PULSE 61; RESP 20; TEMP 97.5; O2SAT 100
[2024-03-28] MEDS ORDERED: BISACODYL 5 MG EC TAB PO ONE (14:45)
[2024-03-28 15:53] VITALS: BP 125/60; PULSE 62; TEMP 36.4
[2024-03-28] MEDS ORDERED: LACT10SO3 PO (16:18)
== END 2024-03-28 16:50 | disposition home or self-care (01) | DRG 389 ==
LOC: ER 18:08 → OVERFLOW 22:16 → EAST 22:16
PROVIDERS: ADMIT Internal Medicine; ATTEND Internal Medicine
DX: K56.41 Fecal impaction (principal); I50.32 Chronic diastolic (congestive) heart failure; E87.6 Hypokalemia; J44.89 Other specified chronic obstructive pulmonary disease; I25.10 Atherosclerotic heart disease of native coronary artery without angina pectoris; I11.0 Hypertensive heart disease with heart failure; F17.210 Nicotine dependence, cigarettes, uncomplicated; G40.909 Epilepsy, unspecified, not intractable, without status epilepticus; E55.9 Vitamin D deficiency, unspecified; G89.29 Other chronic pain; F41.9 Anxiety disorder, unspecified; Z79.1 Long term (current) use of non-steroidal anti-inflammatories (NSAID); Z88.8 Allergy status to other drugs, medicaments and biological substances; Z79.899 Other long term (current) drug therapy; Z79.82 Long term (current) use of aspirin; Z90.49 Acquired absence of other specified parts of digestive tract; Z86.73 Personal history of transient ischemic attack (TIA), and cerebral infarction without residual deficits; Z93.3 Colostomy status; E66.9 Obesity, unspecified; Z68.39 Body mass index [BMI] 39.0-39.9, adult
CPT/HCPCS: 36415; 74176; 80048; 80053; 81001; 82306; 82607; 83036; 83690; 83735; 83880; 84100; 84443; 85025; 94640; 99291; G0378; J2405

== ENCOUNTER 2024-08-22 12:47 | Inpatient (IN) | payer MEDICARE, MEDICAID ==
[~2024-08-22] VITALS: Ht 170.2 cm; Wt 115.0 kg
[~2024-08-22 12:47] MED LIST changes: -AZIT-185 PO; -AZIT-43 PO; -IBUP-1453 PO; +LACT10SO3 PO
--- NOTE | 2024-08-22 13:20 | ED.PDOC ---
History of Present Illness HPI Comments 69F presents to the ER w/ clinical specialist medical device who is also the brother and w/ no prior Hx associated to the c/c of chest wall pain s/p fall. The clinical specialist medical device stated that the pt was walking up some steps to get to the front door of the pt's nieces house for a birthday alliance party when she slipped the step and fell onto a bed of rocks. Pt hit her chest and forehead where she has a bump due from the fall. Pt reports on having CP and forehead pain as well. PMHx of Anxiety, Asthma, CHF, COPD, CVA, Depression, HTN, SZ and TIA. SHx of Cholecystectomy, , Hernia Repair, Hysterectomy and Tonsillectomy. Social Hx of tobacco and occasional alcohol use, but denies substance use. Denies chills, fever, N/V/D, SOB, or no other associated symptom's, modifiers, recent injuries or sick contact at this time. Time Seen by MD: 13:00 Primary Care Provider: SATINDER Cherry Notes: Nurses Notes, Medications, Allergies Allergies: Coded Allergies: Ketorolac Tromethamine (Verified Allergy, Unknown, 10/11/15) TONGUE SWELLING/VOMITING Penicillins (Verified Allergy, Unknown, 10/11/15) Home Meds Active Scripts Lactulose (Lactulose) 10 Gm/15 Ml Marlena, 10 GM PO ONCE PRN for 7 Days, #4 ML Prov:SHERON CONNER RESIDENT 03/28/24 Bupropion Hcl (Wellbutrin Sr) 150 Mg Tab, 150 MG PO DAILY, #30 TAB Prov:ROLANOD COLLIER MD 11/05/22 Nicotine (Nicoderm 21MG/24HR) 1 Patch Ph, 1 PATCH TD DAILY for 14 Days, #14 PATCH Prov:ENOC CARD MD 08/25/21 Mirtazapine (Remeron) 15 Mg Tab, 0.5 TAB PO QPM, #15 TAB 0 Refills Prov:ENOC CARD MD 05/10/19 Aspirin (WINSTON ASPIRIN EC LOW DOSE) 81 Mg Tab, 1 TAB PO DAILY, #30 TAB Prov:JUAN EPPS MD 04/23/19 Potassium Chloride (Klor-Con M20) 20 Meq Tab, 20 MEQ PO DAILY for 30 Days, #30 TAB Prov:ENOC CARD MD 07/14/18 Levetiracetam (KEPPRA TABLET) 500 Mg Tb, 500 MG PO BID for 30 Days Prov:ENOC CARD MD 07/14/18 Atorvastatin Calcium (ATORVASTATIN CALCIUM) 20 Mg Tab, 40 MG PO HS, #90 TAB Prov:ENOC CARD MD 07/14/18 Reported Medications Clonidine Hydrochloride (Clonidine Hcl) 0.3 Mg/24 Hr Dis, 1 PATCH TOP QWEEKLY for 84 Days, #12 UNWRAP AND APPLY 1 PATCH TOPICALLY TO THE SKIN WEEKLY 03/28/24 Docusate Sodium (Docusate Sodium) 100 Mg Cap, 1 CAP PO BID for 10 Days, #20 03/28/24 Promethazine HCl (Promethazine HCl) 6.25 Mg/5 Ml Syp, 5 ML PO TID for 10 Days, #150 TAKE 5 ML BY MOUTH THREE TIMES A DAY FOR 10 DAYS 03/28/24 Albuterol Sulfate (Albuterol Sulfate Hfa) 108 Mcg/Act Aer, 2 PUFF INH Q6HR PRN for COPD 12/27/23 Lorazepam (ATIVAN TABLET) 0.5 Mg Tb, 1 TAB PO Q8HPRN PRN for ANXIETY, #30 TAB 12/26/23 Gabapentin (Neurontin) 300 Mg Cap, 1 CAP PO TID, #90 CAP 3 Refills 12/25/23 Hydrocodone-Acetaminophen (Hydrocodone Bitartrate/AC 10-325 mg) 1 Tab Tab, 1 TAB PO Q8HR for CHRONIC PAIN 12/25/23 Latanoprost (LATANOPROST) 0.005 % Marlena, 1 DROP EACHEYE QPM 08/18/21 Losartan Potassium (Losartan Potassium) 25 Mg Tab, 50 MG PO DAILY for 30 Days, MG 08/18/21 Furosemide (Lasix) 40 Mg Tab, 1 TAB PO DAILY 08/18/21 Brimonidine Tartrate (Brimonidine Tartrate) 0.15 % Marlena, 1 DROP EACHEYE TID for 90 Days INSTILL ONE DROP INTO EACH AFFECTED EYE THREE TIMES DAILY 01/07/15 Information Source: Patient, Relative (Sibling) Mode of Arrival: Ambulatory Severity: Moderate Timing: Hours Duration: Since onset, Hours Prehospital treatment: None Past Medical History PAST MEDICAL HISTORY: Anxiety, Asthma, CHF, COPD, CVA, Depression, HTN, Seizures, TIA Surgical History: Cholecystectomy, , Hernia Repair, Hysterectomy, Tonsillectomy VP ACCOUNT DIRECTOR History: No Pertinent VP ACCOUNT DIRECTOR History Family History Family History: Reviewed,noncontributory to illness, Unknown Social History Smoker: Cigarettes Alcohol: Occasionally Drugs: Denies Drug Use Lives In: Home Constitutional: denies: chills, diaphoresis, fatigue, fever, malaise, sweats, weakness, others EENTM: denies: blurred vision, double vision, ear bleeding, ear discharge, ear drainage, ear pain, ear ringing, eye pain, eye redness, hearing loss, mouth pain , mouth swelling, nasal discharge, nose bleeding, nose congestion, nose pain, photophobia, tearing, throat pain, throat swelling, voice changes, others Respiratory: denies: cough, hemoptysis, orthopnea, SOB at rest, shortness of breath, SOB with excertion, stridor, wheezing, others Cardiovascular: reports: chest pain (status post fall); denies: dizzy spells, diaphoresis, Dyspnea on exertion, edema, irregular heart beat, left arm pain, lightheadedness, palpitations, PND, syncope, others Gastrointestinal: denies: abdomen distended, abdominal pain, blood streaked bowels, constipated, diarrhea, dysphagia, difficulty swallowing, hematemesis, melena, nausea, poor appetite, poor fluid intake, rectal bleeding, rectal pain, vomiting, others Genitourinary: denies: abnormal vagina bleeding, burning, dyspareunia, dysuria, flank pain, frequency, hematuria, incontinence, pain, , vagina discharge, urgency, others Neurological: denies: dizziness, fainting, headache, left sided numbness, left sided weakness, numbness, paresthesia, pre-existing deficit, right sided numbness, right sided weakness, seizure, speech problems, tingling, tremors, weakness, others Musculoskeletal: denies: back pain, gout, joint pain, joint swelling, muscle pain, muscle stiffness, neck pain, others Integumetry: denies: bruises, change in color, change in hair/nails, dryness, laceration, lesions, lumps, rash, wounds, others Allergic/Immunocompromised: denies: Difficulty Healing, Frequent Infections, Hives, Itching, others Hematologic/Lymphatic: denies: anemia, blood clots, easy bleeding, easy bruising, swollen glands, others Endocrine: denies: excessive hunger, excessive sweating, excessive thirst, excessive urination, flushing, intolerance to cold, intolerance to heat, unexplained weight gain, unexplained weight loss, others Psychiatric: denies: anxiety, bipolar disorder, depression, hopeless, panic disorder, schizophrenia, sleepless, suicidal, others All Other Systems: Reviewed and Negative Physical Exam General Appearance: Moderate Distress, Normal HEENT: Normal ENT Inspection, Pharynx Normal, TMs Normal Neck: Full Range of Motion, Non-Tender, Normal, Normal Inspection Respiratory: Chest Non-Tender, Lungs Clear, No Accessory Muscle Use, No Respiratory Distress, Normal Breath Sounds Cardiovascular: No Edema, No JVD, No Murmur, No Gallop, Normal Peripheral Pulses, Regular Rate/Rhythm Breast Exam: Deferred Gastrointestinal: No Organomegaly, Non Tender, No Pulsatile Mass, Normal Bowel Sounds, Soft Genitalia: Deferred Pelvic: Deferred Rectal: Deferred Extremities: No calf tenderness, Normal capillary refill, Normal inspection, Normal range of motion, Non-tender, No pedal edema Musculoskeletal : Apperance: Normal Neurologic: Alert, processes chemical design engineer II-XII nml as Tested, No Motor Deficits, Normal Affect, Normal Mood, No Sensory Deficits Cerebellar Function: NOT DONE Reflexes: NOT DONE Skin: Dry, Normal Color, Warm, Wounds (Forehead) Peripheral Pulses: 3+ Radial (R), 3+ Radial (L) Lymphatic: No Adenopathy Was a procedure done? Was a procedure done?: No Differential Dx Considerations may include: Anemia Electrolyte imbalance X-Ray, Labs, Meds, VS Patient alert. Vitals stable. Head injury. Answering questions. EKG reviewed does show chronic changes. Explained to the patient. Time of 1ST Reevaluation: 13:30 Reevaluation 1ST: Unchanged Patient Education/Counseling: Diagnosis, Treatment, Prognosis Family Education/Counseling: Diagnosis, Treatment, Prognosis Departure 1 Departure Time of Disposition: 13:33 Impression: Primary Impression: Chest pain of unknown etiology Disposition: ADMITTED INPATIENT Admit to: Med Surg Condition: Guarded Critical Care Note Critical Care Time?: No Stability Stability form required: No I personally scribed for JOSE JUAN RAYGOZA MD ([email or web address]) on 08/22/24 at 13:20. Electronically submitted by Ernesto Evans ([email or web address]). JOSE JUAN RAYGOZA MD Aug 22, 2024 13:20
--- NOTE | 2024-08-22 13:44 | DVH ---
CHEST RADIOGRAPH Indication: sob Technique: Single frontal view of the chest was obtained COMPARISON: XY CHEST XRAY 1 VIEW on DOS: 12/29/23, XY CHEST PORTABLE on DOS: 12/25/23, XY CHEST PORTABLE on DOS: 11/01/22, XY CHEST PORTABLE on DOS: 10/27/22, CXRP on DOS: 12/09/21 FINDINGS: Lines and Tubes: None Lungs: Mild pulmonary vascular congestion Pleura: No effusion. No pneumothorax. Cardiomediastinal contours: Cardiomegaly Bones: Unremarkable IMPRESSION: Mild pulmonary vascular congestion.
[2024-08-22] MEDS: NITROGLYCERIN 0.4 MG SL TAB SL ONE (13:45)
[2024-08-22 14:16] LABS: Basophils # (auto) 0 10 ^3/uL (0-0.2); Basophils % (auto) 0.5 % (0.0-2.0); Eosinophils # (auto) 0.1 10 ^3/uL (0-0.8); Eosinophils % (auto) 1.3 % (0.0-7.0); Hematocrit 44.2 % (36.0-46.0); Hemoglobin 14.7 g/dL (12.2-16.2); Lymphocytes # (auto) 2.4 10 ^3/uL (0.4-5.4); Lymphocytes % (auto) 31.5 % (10.0-50.0); Mean Corpuscular Hemoglobin 31.9 pg (28.0-32.0); Mean Corpuscular Hgb Conc. 33.3 g/dL (32.0-36.0); Mean Corpuscular Volume 95.7 fL (80.0-100.0); Monocytes # (auto) 0.5 10 ^3/uL (0-1.3); Monocytes % (auto) 6.9 % (0.0-12.0); Neutrophils # (auto) 4.5 10 ^3/uL (1.6-8.6); Neutrophils % (auto) 59.8 % (37.0-80.0); Nucleated Red Blood Cells % 0.1 %; Platelet Count (auto) 221 10^3/uL (140-450); Red Blood Cells 4.62 10^6/uL (4.0-5.20); Red Cell Distribution Width 13.8 % (11.8-14.3); White Blood Cell 7.5 10^3/uL (4.4-10.8)
[2024-08-22 14:29] LABS: Potassium 4.6 mmol/L (3.5-5.1); Sodium 142 mmol/L (136-145)
[2024-08-22 14:30] LABS: Anion Gap 7 (5-15); Carbon Dioxide 27 mmol/L (20-31)
[2024-08-22 14:35] LABS: BUN/Creatinine Ratio 26.5 (10.0-20.0); Blood Urea Nitrogen 22 mg/dL (9-23); Glucose 104 mg/dL (74-106)
[2024-08-22 14:42] LABS: Calcium 10.5 mg/dL (8.7-10.4); Chloride 108 mmol/L (98-107)
[2024-08-22] MEDS: ASPirin 325 MG TAB PO ONE (14:56)
[2024-08-22] MEDS: ONDANSETRON HCL 4 MG/2 ML VIAL IV ONE (15:15)
[2024-08-22] MEDS: LORazepam 2MG/ML-1ML VIAL IV ONE (15:15)
[2024-08-22] MEDS: MORPHINE SULFATE 4 MG/ML SYR/VIAL IV ONE (15:30)
[2024-08-22] MEDS: LORazepam 2MG/ML-1ML VIAL IM ONE (16:17)
[2024-08-22] MEDS: ONDANSETRON HCL 4 MG/2 ML VIAL IM ONE (16:17)
[2024-08-22] MEDS: MORPHINE SULFATE INJ 2 MG/ml SYRG IM ONE (16:19)
[2024-08-22 17:36] LABS: Urine Bacteria None Seen /hpf (None Seen)
[2024-08-22 17:59] LABS: Urine Blood Negative /uL (Negative); Urine Clarity Turbid (Clear); Urine Color Light-Yellow (Yellow); Urine Mucus FEW (None Seen); Urine Protein, UAD Negative (Negative); Urine Specific Gravity 1.023 (1.001-1.035); Urine Squamous Epithelial Cell FEW /hpf (<5); Urine Urobilinogen Normal (Negative); Urine WBC 2 /HPF (0-5); Urine pH 5.5 (5.0-9.0)
--- NOTE | 2024-08-22 21:06 | DVH ---
CT HEAD WITHOUT CONTRAST INDICATION: fall COMPARISON: CT HEAD WITHOUT CONTRAST on DOS: 08/22/23, CT HEAD WITHOUT CONTRAST on DOS: 10/27/22 TECHNIQUE: CT of the head without intravenous contrast. RADIATION DOSE: CTDIvol: mGy, DLP: mGy*cm FINDINGS: There is no evidence of intracranial hemorrhage, infarct, extra-axial collection, mass effect, midli ne shift, herniation or hydrocephalus. The ventricles, sulci and cisterns are normal. The henao-whit e differentiation is normal. Visualized paranasal sinuses and mastoid air cells are clear. Soft tis sues and osseous structures are unremarkable. IMPRESSION: No intracranial abnormality demonstrated.
[2024-08-22] MEDS ORDERED: ACETAMINOPHEN 325 MG TAB PO PRN (21:30)
[2024-08-22] MEDS ORDERED: NITROGLYCERIN 0.4 MG SL TAB SL PRN (21:30)
[2024-08-22] MEDS ORDERED: MORPHINE SULFATE INJ 2 MG/ml SYRG IV PRN (21:30)
[2024-08-22 21:34] VITALS: BP 101/69; PULSE 107; RESP 18; O2SAT 94
--- NOTE | 2024-08-22 22:12 | DVH ---
CLINICAL INDICATION: trauma TECHNIQUE: 3 radiographic views of the right knee were obtained. Comparison: None FINDINGS/IMPRESSION: There is no evidence of acute fracture or dislocation. There is narrowing of the medial compartment of the right knee and patellofemoral joint The alignment is anatomical. There is no radiopaque foreign body.
--- NOTE | 2024-08-22 22:19 | DVHHPRES ---
History of Present Illness Resident Creating Document: DANELLE LUIS RESIDENT History of Present Illness 69-year-old female with a past medical history of coronary artery disease, status post stent, hypertension, congestive heart failure, chronic obstructive pulmonary disease, cerebrovascular accident, seizure disorder (last seizure four months ago), anxiety, depression, and diverticulitis with colostomy reversal, who presents to the Emergency Department after a fall with head trauma yesterday and loss of consciousness for approximately 4 minutes as reported by her brother. Patient states that she was walking up steps to enter her nieces house when she slipped and fell onto a bed of rocks. She hit her head and chest during the fall and now complains of persistent chest wall pain, forehead pain, and right knee pain. She states headache, denies visual changes, or new focal neurological deficits. She also reports that she is coughing more that started this morning, which she describes as dry and non-productive. She denies fevers, chills, nausea, vomiting or sick contacts. Social history is notable for tobacco use and occasional alcohol consumption but no substance abuse. Past Medical History Cardiovascular: Coronary artery disease s/p stent, hypertension, congestive heart failure Pulmonary: Chronic obstructive pulmonary disease Neurological: Stroke and seizure disorder (last seizure 4 months ago). Gastrointestinal: Diverticulitis, s/p colostomy reversal. Psychiatric: Anxiety, depression. Surgical History: Colostomy, Cholecystectomy, , hernia repair, hysterectomy, tonsillectomy. Home meds: Lactulose Bupropion HCl 150 mg PO daily Nicotine Patch Mirtazapine 15 mg PO qhs Aspirin 81 mg PO daily Potassium Chloride 20 mEq PO daily Levetiracetam 500 mg PO BID Atorvastatin Calcium 40 mg PO qHS Cholecalciferol (Vitamin D3) 1,000 IU PO daily Docusate Sodium 100 mg PO BID Promethazine HCl 6.25 mg/5 mL syrup, 5 mL PO TID PRN nausea Albuterol Sulfate HFA 180 mcg, 2 puffs q6h PRN for COPD Alprazolam 0.5 mg PO q8h PRN for anxiety Review of Systems Review of Systems Review of Systems General: No fever, chills, or recent weight loss. HEENT: Reports sore throat, denies congestion, rhinorrhea, ear pain. Respiratory: New dry cough, no shortness of breath, no wheezing, no hemoptysis. Cardiovascular: Chest wall pain after fall, no palpitations, no syncope. Gastrointestinal: No nausea, vomiting, abdominal pain, or changes in bowel hab its. Reports history of diverticulitis. Neurological: No dizziness, or new focal deficits. Reports brief loss of consciousness (~4 minutes) post-fall but denies confusion, weakness, or numbness. Musculoskeletal: Reports knee pain with swelling, no deformity. Psychiatric: No acute anxiety or depressive symptoms. Allergies: Coded Allergies: Ketorolac Tromethamine (Verified Allergy, Unknown, 10/11/15) TONGUE SWELLING/VOMITING Penicillins (Verified Allergy, Unknown, 10/11/15) Medications Current Medications Medications Dose Ordered Sig/Emily Route Start Time Stop Time Status Last Admin Dose Admin Nitroglycerin 0.4 mg Q5MINP PRN SL 08/22/24 21:30 UNV Morphine Sulfate 2 mg Q30M PRN IV 08/22/24 21:30 UNV Morphine Sulfate 1 mg Q4HP PRN IV 08/22/24 21:30 UNV Acetaminophen 650 mg Q4HP PRN PO 08/22/24 21:30 UNV Albuterol 2.5 mg Q8HPRN PRN NEB 08/22/24 21:30 UNV Ipratropium Excelsior 0.5 mg Q8HPRN PRN NEB 08/22/24 21:30 UNV Levetiracetam 500 mg BID PO 08/22/24 22:00 UNV Methylprednisolone Sodium Succinate 40 mg BID IV 08/22/24 22:00 UNV Exam Vital Signs Vital Signs Date Time Temp Pulse Resp B/P (MAP) Pulse Ox O2 Delivery O2 Flow Rate FiO2 08/22/24 21:34 107 18 101/69 94 0.0 21 08/22/24 20:01 97.7 97.7 General Appearance: Alert, Oriented X3 HEENT: Other (left unilateral strabismus and scalp hematoma ) Respiratory: Other (bilatreal crackles ) Cardiovascular: Regular rate, Normal S1, Other (tender at palpation bilateral chest wall ) Abdominal: Normal bowel sounds, Soft Extremities: Other (right knee swelling ) Neuro: Other (knee swelling ) Psych/Mental Status: Other (anxious ) Labs/Xrays Labs Test 08/22/24 17:05 08/22/24 13:55 Range/Units Urine Color Light-yellow Yellow Urine Clarity Turbid H Clear Urine pH 5.5 5.0-9.0 Urine Specific [place] 1.023 1.001-1.035 Urine Protein Negative Negative Urine Ketones Negative Negative Urine Blood Negative Negative /uL Urine Nitrite Negative Negative Urine Bilirubin Negative Negative Urine Urobilinogen Normal Negative mg/dL Urine Leukocyte Esterase Negative Negative /uL Urine RBC 2 0 - 4 /hpf Urine Microscopic WBC 2 0-5 /HPF Urine Squamous Epithelial Cells Few <5 /hpf Urine Bacteria None seen None Seen /hpf Urine Mucus Few None Seen Urine Glucose Normal Normal mg/dL White Blood Count 7.5 4.4-10.8 10^3/uL Red Blood Count 4.62 4.0-5.20 10^6/uL Hemoglobin 14.7 12.2-16.2 g/dL Hematocrit 44.2 36.0-46.0 % Mean Corpuscular Volume 95.7 80.0-100.0 fL Mean Corpuscular Hemoglobin 31.9 28.0-32.0 pg Mean Corpuscular Hemoglobin Concent 33.3 32.0-36.0 g/dL Red Cell Distribution Width 13.8 11.8-14.3 % Platelet Count 221 140-450 10^3/uL Mean Platelet Volume 8.0 6.9-10.8 fL Neutrophils (%) (Auto) 59.8 37.0-80.0 % Lymphocytes (%) (Auto) 31.5 10.0-50.0 % Monocytes (%) (Auto) 6.9 0.0-12.0 % Eosinophils (%) (Auto) 1.3 0.0-7.0 % Basophils (%) (Auto) 0.5 0.0-2.0 % Neutrophils # (Auto) 4.5 1.6-8.6 10 ^3/uL Lymphocytes # (Auto) 2.4 0.4-5.4 10 ^3/uL Monocytes # (Auto) 0.5 0-1.3 10 ^3/uL Eosinophils # (Auto) 0.1 0-0.8 10 ^3/uL Basophils # (Auto) 0 0-0.2 10 ^3/uL Nucleated Red Blood Cells 0.1 % Sodium Level 142 136-145 mmol/L Potassium Level 4.6 3.5-5.1 mmol/L Chloride Level 108 H 98-107 mmol/L Carbon Dioxide Level 27 20-31 mmol/L Anion Gap 7 5-15 Blood Urea Nitrogen 22 9-23 mg/dL Creatinine 0.83 0.550-1.02 mg/dL Glomerular Filtration Rate Calc 76 >90 mL/min BUN/Creatinine Ratio 26.5 H 10.0-20.0 Serum Glucose 104 74-106 mg/dL Calcium Level 10.5 H 8.7-10.4 mg/dL Troponin I High Sensitivity < 3 L </=34 ng/L Assessment/Plan Assessment/Plan 69-year-old female with CAD, CHF, COPD, seizure disorder, history of stroke, presenting after a fall with head trauma and LOC, now with chest wall pain, knee pain, and new-onset sore throat and cough. #Head concussion with LOC #Mechanical fall #Blunt chest trauma #Knee trauma post fall #Possible COPD exacerbation #Possible acute exacerbation of HF #H/o seizure disorder #H/o CAD s/p stent Admit Telemetry Head CT scan negative for acute abnormalities Neurology consult Images due to trauma Start solu medrol due to copd exacerbation Breathing treatments Start furosemide IV Continue levetiracetam Pain management ECHO pending Case discussed with Dr Ibanez Plan discussed with: Patient, Other (rn) My Orders Orders - DANELLE LUIS RESIDENT Procedure Category Date Status Time Head Without Contrast CT 08/22/24 Resulted 20:34 Admit ADMIT 08/22/24 Transmitted 21:23 Nitroglycerin PHA 08/22/24 Logged Sublingual (Ntrostat 21:30 Morphine Sulfate PHA 08/22/24 Logged Injection 21:30 Oxygen By Nasal RT 08/22/24 Transmitted Cannula 21:23 Stat Ekg For Chest CHARLEEN 08/22/24 In Process Pain 21:23 Notify Md Of Changes CHARLEEN 08/22/24 In Process From Base 21:23 Academic Program Specialist For CHARLEEN 08/22/24 In Process 24 Hours 21:23 Emergency Dysrhythmia CHARLEEN 08/22/24 In Process Protocol 21:23 Rhythm Strips Once CHARLEEN 08/22/24 In Process Every Shift 21:23 Ribs Bilateral XY 08/22/24 Logged 21:23 Kub Abdomen Single XY 08/22/24 Logged View 21:23 Oxygen By Nasal RT 08/22/24 Transmitted Cannula 21:23 Morphine Sulfate PHA 08/22/24 Logged Injection 21:30 Acetaminophen Tablet PHA 08/22/24 Logged (Tylenol Tablet) 21:30 Albuterol Medneb PHA 08/22/24 Logged (Ventolin Medneb) 21:30 Ipratropium Medneb PHA 08/22/24 Logged (Atrovent Medneb) 21:30 Orthostatic Vital ORDERS 08/22/24 Transmitted Signs 21:23 Echo 2d Mode Cardiac US 08/22/24 Logged DOP 21:23 B-Type Natriuretic LAB 08/22/24 In Process Peptide 21:23 Levetiracetam Tablet PHA 08/22/24 Logged (Keppra Tablet) 22:00 * Neurology Consult CONS 08/22/24 Transmitted 21:29 Methylprednisolone PHA 08/22/24 Logged Sod Succ (Solu Medrol 22:00 R Knee 2v Xray XY 08/22/24 Logged 21:23 Erythrocyte LAB 08/22/24 Logged Sedimentation Rate 21:41 C-Reactive Protein LAB 08/22/24 Logged 21:41 Chst Ab Pel Wo Con-No CT 08/22/24 Logged Iv/Oral 21:41 Date of Service: Aug 22, 2024 Billing Provider: JEANA IBANEZ MD Common Visit Codes: [id number] INP/OBS CARE (HIGH) DANELLE LUIS RESIDENT Aug 22, 2024 22:19 JEANA IBANEZ MD Aug 23, 2024 17:51
[2024-08-22] MEDS ORDERED: LORazepam 2MG/ML-1ML VIAL IV PRN (22:30)
[2024-08-22 23:01] LABS: Erythrocyte Sedimentation Rate 20 mm/hr (0-20)
[2024-08-22] MEDS: levETIRAcetam 500 MG TAB PO SCH (23:26)
[2024-08-22] MEDS: LORazepam 0.5 MG TAB PO PRN (23:57)
[2024-08-23] VITALS (8 sets, daily range): BP systolic 136; BP diastolic 57; PULSE 59–89; RESP 18–21; TEMP 97.8; O2SAT 94–100
[2024-08-23] MEDS ORDERED: ACETAMINOPHEN 325 MG TAB PO PRN ×2 (00:15→14:00)
[2024-08-23] MEDS: methylPREDNISolone SOD SUCC 40 MG/ML VL IV SCH (00:22)
[2024-08-23] MEDS: MORPHINE SULFATE INJ 2 MG/ml SYRG IV PRN ×2 (00:25→05:51)
--- NOTE | 2024-08-23 03:04 | DVH ---
EXAM: CT CHST AB PEL WO CON-NO IV/ORAL HISTORY: TRAUMA FALL COMPARISON: CT CT AB PEL WO CON-NO ORAL OR IV on DOS: 03/26/24, CT CT AB PEL WO CON-NO ORAL OR IV on D OS: 12/26/23, CT CHST AB PEL WO CON-NO IV/ORAL on DOS: 11/01/22 TECHNIQUE: Helical CT images of the chest, abdomen, and pelvis were performed without IV contrast. Sagittal and coronal reformatted images were obtained. This CT exam was performed using one or more of the follo wing dose reduction techniques: Automated exposure control, adjustment of the mA and/or kv according to patient size, or the use of iterative reconstruction techniques. Radiation Dose Information: CT Dose: CTDI volume is 25.9 mGy. Dose-length product is 1928.2 mGy*cm FINDINGS: The airway appears patent. No significant mediastinal or hilar adenopathy. No pericardial or pleural effusion. No pneumothorax. Linear subsegmental atelectasis. Hypodensities within the liver likely represent cysts. The gallbladder, spleen and right adrenal glan d appear unremarkable. Stable 1.1 cm left adrenal nodule. Stable 1.7 cm cystic appearing lesion in th e pancreatic head. The kidneys appear mildly lobulated without hydronephrosis. 1.4 cm stable left vicente al cyst. No evidence of bowel obstruction or focal bowel wall thickening. The appendix appears normal. No fr ee fluid, free air, or adenopathy. Postsurgical changes of the ventral abdomen. No discrete osseous fracture. IMPRESSION: 1. No acute findings. 2. Stable left adrenal nodule 3. Stable 1.7 cm circumscribed cystic appearing lesion in the pancreatic head. Nonemergent MRI pancre atic protocol is recommended. HS:Y
[2024-08-23] MEDS ORDERED: MORPHINE SULFATE INJ 2 MG/ml SYRG IV PRN (04:00)
[2024-08-23] MEDS: HYDROcodone-ACET 5/325MG TAB PO PRN (04:06)
[2024-08-23 06:46] LABS: Basophils # (auto) 0 10 ^3/uL (0-0.2); Basophils % (auto) 0.1 % (0.0-2.0); Eosinophils # (auto) 0 10 ^3/uL (0-0.8); Eosinophils % (auto) 0.2 % (0.0-7.0); Hematocrit 40.7 % (36.0-46.0); Hemoglobin 13.6 g/dL (12.2-16.2); Lymphocytes # (auto) 0.9 10 ^3/uL (0.4-5.4); Lymphocytes % (auto) 13.2 % (10.0-50.0); Mean Corpuscular Hgb Conc. 33.4 g/dL (32.0-36.0); Monocytes # (auto) 0.1 10 ^3/uL (0-1.3); Monocytes % (auto) 1.2 % (0.0-12.0); Neutrophils # (auto) 5.9 10 ^3/uL (1.6-8.6); Neutrophils % (auto) 85.3 % (37.0-80.0); Nucleated Red Blood Cells % 0.1 %; Platelet Count (auto) 194 10^3/uL (140-450); Red Blood Cells 4.24 10^6/uL (4.0-5.20); White Blood Cell 6.9 10^3/uL (4.4-10.8)
[2024-08-23] MEDS: HYDROcodone-ACET 10/325MG TAB PO PRN (07:00)
[2024-08-23 07:04] LABS: Alanine Aminotransferase 14 U/L (7-40); Albumin 4.5 g/dL (3.2-4.8); Alkaline Phosphatase 110 U/L (46-116); Anion Gap 9 (5-15); BUN/Creatinine Ratio 27.2 (10.0-20.0); Blood Urea Nitrogen 25 mg/dL (9-23); Calcium 10.2 mg/dL (8.7-10.4); Carbon Dioxide 23 mmol/L (20-31); Chloride 106 mmol/L (98-107); Glucose 128 mg/dL (74-106); Potassium 4.8 mmol/L (3.5-5.1); Sodium 138 mmol/L (136-145); Total Protein 7.2 g/dL (5.7-8.2)
[2024-08-23 07:05] LABS: Aspartate Aminotransferase 12 U/L (13-40); Bilirubin, Total 0.6 mg/dL (0.2-1.0)
[2024-08-23] MEDS: ALBUTEROL SULF 2.5 MG/0.5ML(0.5%) NEB SOLN NEB PRN (07:08)
[2024-08-23] MEDS: IPRATROPIUM BROM 0.5 MG/2.5ML INH SOL NEB PRN (07:08)
--- NOTE | 2024-08-23 09:17 | DVH ---
EXAMINATION: XY RIBS BILATERAL INDICATION: wall chest pain COMPARISON: None TECHNIQUE: Frontal view of the chest and 5 views of the bilateral ribs history FINDINGS: No focal consolidation, pleural effusion or significant pneumothorax. Normal cardiomediastinal silhou ette. No displaced bilateral rib fracture. IMPRESSION: No acute cardiopulmonary disease. No displaced bilateral rib fracture.
--- NOTE | 2024-08-23 09:32 | DVHINCON2 ---
Date of service: Aug 23, [address] Whitaker Reason for Consultation Syncope, history of seizures History of Present Illness Ms. 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 At this time, she is fully oriented, she was remembers seeing me previously, but she was not a good organized historian, she does not remember some of her previous symptoms, I have reviewed her chart, talked to her nurse, long time spent I saw her on 12/13/2021 for syncope (she also had left sided numbness. MRI was unremarkable), 11/01/2022 for seizure On 08/22/2024, when she was walking with her family, she missed a step and fell down into a bed of rock landed on her chest head, that resulted a lump in the forehead, bruise in the breast and knee, she tells me she lost her consciousness for about 2 minutes however, according to her nurse, the family denied altered mental status/loss of consciousness. She was seizure disorder a summarized below Seizure disorder Onset: Age of 7-8 Time of last attack: 2022 Possible cause of condition: Unknown Symptoms: She has complete amnesia about her symptoms, she was said to have episodic events where she becomes unresponsiveness, with shaking all over the body, Associated symptoms: She has had biting and incontinence Previous evaluation, she had been seen by many doctors include neurologist, she has had MRI and EEG. She was reports seeing Dr. Eden, based on her description, Buster Eden, a dispatcher street department Current treatment: Keppra 500 mg twice daily Previous treatment: Dilantin 500 mg daily TIA Onset: , 08/2022, 10/27/22 Possible: Condition: Hypertension, obesity, heart disease Symptoms: Around , she developed left-sided numbness weakness, the patient was seen in the [facility] and was said to have TIA (her earliest MRI scan was 01/03/2017). She reported complete recovery On 12/09/21, when she was in the [facility] ER for chest pain, she developed dizziness when she was walking to the bathroom but the next memory was waking up on the floor, she was had left-sided numbness, but MRI was negative for acute stroke In 08/2022, the patient had intense headache, weakness in both arms and legs and that she was not able to open the hands, she was seen in the [facility] and was said to have TIA When she was in the emergency room on 10/27/2022 for seizure activity, she was said to have TIA, but she does not remember any symptoms of TIA/stroke Current treatment: She remembers taking aspirin Previous treatment: Aspirin 81mg p.o. daily, a cholesterol tablet daily. Since the end of 2021 in early 2022, she was on Xarelto for left upper extremity DVT Urinalysis, 12/22/2024: Unremarkable CBC, 08/23/2024: Unremarkable CMP, 08/23/2024: Unremarkable TG/CHOL/LDL/HDL, 11/2021: 54/170/80/85, 11/02/22: 122/162/94/55 Vitamin B12 03/27/2024: 529 CT head, 10/27/2022: No acute intracranial process CT head, 08/22/2024: No intracranial abnormality demonstrated MRI head, 01/03/2017: 1. No acute intracranial hemorrhage, infarction or mass. 2. Mild chronic small vessel ischemic changes. 3. Mild generalized cerebral volume loss. 4. 2 x 0.7 cm left frontal scalp probable lipoma MRI head, 12/15/2021: There is mild to moderate likely chronic microvascular ischemic disease of supratentorial white matter. There is no acute infarct. 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 Past Surgical History Cholecystectomy, tonsillectomy, hysterectomy, , hernia repair Family History: Cancer G8 FATHER, Onset:60 years & older ( lung cancer) Carpal tunnel syndrome G8 MOTHER FH: CAD (coronary artery disease) FH: HTN (hypertension) FH: diabetes mellitus Viral pneumonia G8 MOTHER Family History Hypertension, diabetes, coronary artery disease, sleep apnea, carpal tunnel sy ndrome, cancer Social History She was a tobacco smoker, but did note history of alcohol or drug abuse Allergies: Coded Allergies: Ketorolac Tromethamine (Verified Allergy, Unknown, 10/11/15) TONGUE SWELLING/VOMITING Penicillins (Verified Allergy, Unknown, 10/11/15) Home Meds Active Scripts Lactulose (Lactulose) 10 Gm/15 Ml Marlena, 10 GM PO ONCE PRN for 7 Days, #4 ML Prov:SHERON CONNER RESIDENT 03/28/24 Bupropion Hcl (Wellbutrin Sr) 150 Mg Tab, 150 MG PO DAILY, #30 TAB Prov:ROLANDO COLLIER MD 11/05/22 Nicotine (Nicoderm 21MG/24HR) 1 Patch Ph, 1 PATCH TD DAILY for 14 Days, #14 PATCH Prov:ENOC CARD MD 08/25/21 Mirtazapine (Remeron) 15 Mg Tab, 0.5 TAB PO QPM, #15 TAB 0 Refills Prov:ENOC CARD MD 05/10/19 Aspirin (WINSTON ASPIRIN EC LOW DOSE) 81 Mg Tab, 1 TAB PO DAILY, #30 TAB Prov:JUAN EPPS MD 04/23/19 Potassium Chloride (Klor-Con M20) 20 Meq Tab, 20 MEQ PO DAILY for 30 Days, #30 TAB Prov:ENOC CARD MD 07/14/18 Levetiracetam (KEPPRA TABLET) 500 Mg Tb, 500 MG PO BID for 30 Days Prov:ENOC CARD MD 07/14/18 Atorvastatin Calcium (ATORVASTATIN CALCIUM) 20 Mg Tab, 40 MG PO HS, #90 TAB Prov:ENOC CARD MD 07/14/18 Reported Medications Clonidine Hydrochloride (Clonidine Hcl) 0.3 Mg/24 Hr Dis, 1 PATCH TOP QWEEKLY for 84 Days, #12 UNWRAP AND APPLY 1 PATCH TOPICALLY TO THE SKIN WEEKLY 03/28/24 Docusate Sodium (Docusate Sodium) 100 Mg Cap, 1 CAP PO BID for 10 Days, #20 03/28/24 Promethazine HCl (Promethazine HCl) 6.25 Mg/5 Ml Syp, 5 ML PO TID for 10 Days, #150 TAKE 5 ML BY MOUTH THREE TIMES A DAY FOR 10 DAYS 03/28/24 Albuterol Sulfate (Albuterol Sulfate Hfa) 108 Mcg/Act Aer, 2 PUFF INH Q6HR PRN for COPD 12/27/23 Lorazepam (ATIVAN TABLET) 0.5 Mg Tb, 1 TAB PO Q8HPRN PRN for ANXIETY, #30 TAB 12/26/23 Gabapentin (Neurontin) 300 Mg Cap, 1 CAP PO TID, #90 CAP 3 Refills 12/25/23 Hydrocodone-Acetaminophen (Hydrocodone Bitartrate/AC 10-325 mg) 1 Tab Tab, 1 TAB PO Q8HR for CHRONIC PAIN 12/25/23 Latanoprost (LATANOPROST) 0.005 % Marlena, 1 DROP EACHEYE QPM 08/18/21 Losartan Potassium (Losartan Potassium) 25 Mg Tab, 50 MG PO DAILY for 30 Days, MG 08/18/21 Furosemide (Lasix) 40 Mg Tab, 1 TAB PO DAILY 08/18/21 Brimonidine Tartrate (Brimonidine Tartrate) 0.15 % Marlena, 1 DROP EACHEYE TID for 90 Days INSTILL ONE DROP INTO EACH AFFECTED EYE THREE TIMES DAILY 01/07/15 Current Medications Current Medications Medications (Trade) Dose Ordered Sig/Emily Route PRN Reason Start Time Stop Time Status Last Admin Nitroglycerin (Ntrostat Sublingual) 0.4 mg Q5MINP PRN SL FOR CHEST PAIN 08/22/24 21:30 Morphine Sulfate 2 mg Q30M PRN IV FOR CHEST PAIN 08/22/24 21:30 Morphine Sulfate 1 mg Q4HP PRN IV MODERATE PAIN (4-6 PAIN SCALE) 08/22/24 21:30 08/23/24 04:00 DC 08/23/24 00:31 Acetaminophen (Tylenol Tablet) 650 mg Q4HP PRN PO MODERATE PAIN (4-6 PAIN SCALE) 08/22/24 21:08/23/24 00:11 DC Albuterol (Ventolin Medneb) 2.5 mg Q8HPRN PRN NEB SHORTNESS OF BREATH 08/22/24 21:08/23/24 07:08 Ipratropium [place] (Atrovent Medneb) 0.5 mg Q8HPRN PRN NEB SHORTNESS OF BREATH 08/22/24 21:30 08/23/24 07:08 Levetiracetam (Keppra Tablet) 500 mg BID PO 08/22/24 22:00 08/22/24 23:26 Methylprednisolone Sodium Succinate (Solu Medrol) 40 mg BID IV 08/22/24 22:00 3/6/25 00:22 Lorazepam (Ativan Inj) 1 mg Q5MINP PRN IV SEIZURES 08/22/24 22:30 Lorazepam (Ativan Tablet) 0.5 mg Q12HP PRN PO ANXIETY 08/22/24 23:45 08/22/24 23:57 Acetaminophen (Tylenol Tablet) 650 mg Q4HP PRN PO MILD PAIN (1-3 PAIN SCALE) 08/23/24 00:15 Morphine Sulfate 1 mg Q4HP PRN IV SEVERE PAIN (7-10 PAIN SCALE) 08/23/24 04:00 08/23/24 04:04 DC Acetaminophen/ Hydrocodone Bitart ([place] 5/325MG Tab) 1 tab Q6HPRN PRN PO MODERATE PAIN (4-6 PAIN SCALE) 08/23/24 04:00 08/23/24 06:42 DC 08/23/24 04:06 Morphine Sulfate 1 mg Q4HP PRN IV SEVERE PAIN (7-10 PAIN SCALE) 08/23/24 04:15 08/23/24 05:51 Acetaminophen/ Hydrocodone Bitart ([place] 10/325MG Tab) 1 tab Q4HP PRN PO MODERATE PAIN (4-6 PAIN SCALE) 08/23/24 06:45 08/23/24 07:00 Review of Systems As above, the other systems are negative Vital Signs Vital Signs Date Time Temp Pulse Resp B/P (MAP) Pulse Ox O2 Delivery O2 Flow Rate FiO2 08/23/24 07:30 83 21 95 Room Air* 0 21 08/23/24 07:30 108/66 (80) 08/23/24 00:45 97.6 97.6 Physical Exam GENERAL EXAM: General: the patient is well developed and nourished. No acute distress. HEENT: Normocephalic, neck is supple, no carotid bruits. No mass. The throat is Mallampati grade III. No tenderness, erythema, swelling, prominent vasculature in the scalp RESPIRATORY: Normal respiratory effort with symmetrical lung expansion. Lungs clear to auscultation. CARDIOVASCULAR: Regular rate and rhythm with no murmurs. S1, S2. ABDOMEN: Soft, nontender, normal bowel sound NEUROLOGICAL: MENTAL STATUS: Awake and alert. Oriented to person, place, time and general circumstances. SPEECH, LANGUAGE, HIGHER CORTICAL FUNCTION: no aphasia or dysathria. CRANIAL NERVES: #2: Intact visual puentes to confrontation. No left eye light perception #3,4,6: Pupils are equal, round and reactive. EOMs full and conjugate. No nystagmus. #5: Facial sensation is diminished in the left face. Mandibular strength intact. #7: Facial muscles symmetrical and strength intact. #8: Hearing grossly normal to voice. #9,10: Uvula and soft palate rise in the midline. Swallow and voice are normal. #11: Trapezius and sternomastoid strength intact bilaterally. #12: Tongue midline. No fasciculations or atrophy. SENSATION: Sensation to touch and pinprick is diminished in the left arm the leg MOTOR: Normal tone in the upper and lower extremity. Normal muscle bulk. No fasciculations. No abnormal movements or posturing. Muscle strength of the major groups in the right extremities is 5/5. Muscle strength of the major groups in the left extremities is 5/5. REFLEXES: Deep tendon reflexes are symmetrical. No pathological reflexes. CEREBELLAR/COORDINATION: Finger to nose tests are normal bilaterally. GAIT/STATION: deferred Labs/Diagnostic Data Labs Test 08/23/24 05:05 08/23/24 00:51 08/22/24 17:05 08/22/24 13:55 Range/Units White Blood Count 6.9 4.4-10.8 10^3/uL Red Blood Count 4.24 4.0-5.20 10^6/uL Hemoglobin 13.6 12.2-16.2 g/dL Hematocrit 40.7 36.0-46.0 % Mean Corpuscular Volume 96.0 80.0-100.0 fL Mean Corpuscular Hemoglobin 32.0 28.0-32.0 pg Mean Corpuscular Hemoglobin Concent 33.4 32.0-36.0 g/dL Red Cell Distribution Width 14.0 11.8-14.3 % Platelet Count 194 140-450 10^3/uL Mean Platelet Volume 8.2 6.9-10.8 fL Neutrophils (%) (Auto) 85.3 H 37.0-80.0 % Lymphocytes (%) (Auto) 13.2 10.0-50.0 % Monocytes (%) (Auto) 1.2 0.0-12.0 % Eosinophils (%) (Auto) 0.2 0.0-7.0 % Basophils (%) (Auto) 0.1 0.0-2.0 % Neutrophils # (Auto) 5.9 1.6-8.6 10 ^3/uL Lymphocytes # (Auto) 0.9 0.4-5.4 10 ^3/uL Monocytes # (Auto) 0.1 0-1.3 10 ^3/uL Eosinophils # (Auto) 0 0-0.8 10 ^3/uL Basophils # (Auto) 0 0-0.2 10 ^3/uL Nucleated Red Blood Cells 0.1 % Sodium Level 138 136-145 mmol/L Potassium Level 4.8 3.5-5.1 mmol/L Chloride Level 106 98-107 mmol/L Carbon Dioxide Level 23 20-31 mmol/L Anion Gap 9 5-15 Blood Urea Nitrogen 25 H 9-23 mg/dL Creatinine 0.92 0.550-1.02 mg/dL Glomerular Filtration Rate Calc 67 >90 mL/min BUN/Creatinine Ratio 27.2 H 10.0-20.0 Serum Glucose 128 H 74-106 mg/dL Calcium Level 10.2 8.7-10.4 mg/dL Total Bilirubin 0.6 0.2-1.0 mg/dL Aspartate Amino Transferase (AST) 12 L 13-40 U/L Alanine Aminotransferase (ALT) 14 7-40 U/L Alkaline Phosphatase 110 46-116 U/L Total Protein 7.2 5.7-8.2 g/dL Albumin 4.5 3.2-4.8 g/dL POC Glucose 113 H 70-106 mg/dl Urine Color Light-yellow Yellow Urine Clarity Turbid H Clear Urine pH 5.5 5.0-9.0 Urine Specific [place] 1.023 1.001-1.035 Urine Protein Negative Negative Urine Ketones Negative Negative Urine Blood Negative Negative /uL Urine Nitrite Negative Negative Urine Bilirubin Negative Negative Urine Urobilinogen Normal Negative mg/dL Urine Leukocyte Esterase Negative Negative /uL Urine RBC 2 0 - 4 /hpf Urine Microscopic WBC 2 0-5 /HPF Urine Squamous Epithelial Cells Few <5 /hpf Urine Bacteria None seen None Seen /hpf Urine Mucus Few None Seen Urine Glucose Normal Normal mg/dL Erythrocyte Sedimentation Rate 20 0-20 mm/hr Troponin I High Sensitivity < 3 L </=34 ng/L C-Reactive Protein High Sensitivity 1.45 H <1.0 mg/dL B-Type Natriuretic Peptide 20.48 0-100 pg/mL Assessment Fall on 08/22/24, she claimed LOC but not confirmed with her family Reported recurrent TIA/stroke, at least the ones in 08/2022, on 10/27/2022 were not typical, Reported grand mal seizure, good control with current treatment Plan/Recommendation Monitoring Supportive treatment Telemetry Lipid profile EEG Aspirin 81 mg daily Lipitor 10 mg daily Keppra 500 mg twice daily Ativan for seizure breakthrough Weight control This medical document was created using an electronic medical record system with T-Quad 22 dictation system. Although this document has been carefully reviewed, there may still be some phonetic and typographical errors. These areas are purely typographical due to imperfections of the software programs, and do not reflect any compromise in the patient's medical care. Plan discussed with: Patient, Other SHERRY KUNZ MD Aug 23, 2024 09:32
--- NOTE | 2024-08-23 09:51 | ECG ---
[facility] Test Date: 2024-08-23 Test Time: 05:08:14 Pat Name: JOE GARRISON Department: er Room: 0249T Gender: F Commercial Census Taker: er : 1955 Requested By: DANELLE LONDON Order Number: [id number] Reading MD: García Avalos Measurements Intervals [place] Rate: 71 P: -85 RI: 282 QRS: -11 QRSD: 93 T: 48 QT: 422 QTc: 459 Interpretive Statements Sinus or ectopic atrial rhythm Prolonged RI interval Minimal ST elevation, inferior leads Electronically Signed On 08-25-2024 17:58:06 PST by García Avalos Please click the below link to view image of tracing.
[2024-08-23] MEDS: LORazepam 2MG/ML-1ML VIAL IV ONE (09:56)
--- NOTE | 2024-08-23 09:59 | DVHPNRES ---
Progress Note Date Seen: Aug 23, 2024 Resident Creating Document: MARISSA RANDOLPH RESIDENT Medical Necessity Reason Pt with a Central, PICC or Fol: No Subjective Review of Systems Patient is 69 years old female with past medical history of coronary artery disease, status post PTCA, hypertension, congestive heart failure, COPD, CVA, seizure disorder(last seizure 4 month before, anxiety, depression, history of diverticulitis, status post colostomy reversal presents to the ER after she had a fall at [facility]. As per patient she had a fall after she missed a step on the stair and fell on her chest, denied hitting head or loss of consciousness. Nephew was at the bedside , patient was Witness during fall and mentioned patient never lost consciousness. Patient reported she fell on her chest and knee and started having chest pain after she fell, 9 to 10/10, sharp pain, increased with breathing. Patient endorsed some cough with thick whitish mucus sputum for last couple of days. Initial lab workup negative for trop I, BNP 20.48, cholesterol 201, LDL 124. EKG no acute ST or T-wave changes. CXR revealed mild pulmonary vascular congestion, CT head negative for intracranial abnormality, x-ray right knee no acute fracture or dislocation noted, CT abdomen pelvis revealed -Stable left adrenal nodule 1.1 cm,. Stable 1.7 cm circumscribed cystic appearing lesion in the pancreatic head. X-ray reviewed negative for acute fracture or displacement. Echo 2D-LVEF- 65. moderate LVH. left atrium enlarged PMH-coronary artery disease, status post stent, hypertension, congestive heart failure, chronic obstructive pulmonary disease, cerebrovascular accident, seizure disorder (last seizure four months ago), anxiety, depression, and diverticulitis with colostomy reversal PSH- Colostomy, Cholecystectomy, , hernia repair, hysterectomy, tonsillectomy. Allergy- ketorolac, tromethamine, penicillin Personal History/ Social History- smoker, occasional alcohol consumption, denies substance abuse Patient was seen today at the bedside. Cardiovascular- deny palpitation Respiratory denies cough or short of breath or wheezing Gastrointestinal- denies any rectal bleeding, nausea or vomiting Musculoskeletal-denies acute joint swelling or tenderness or redness Neurological- denies acute dysarthria, dysphagia, change in vision Psychiatry- denies depression or SI or HI Skin- denies acute rash or purpura Patient was seen today for clinical evaluation. Labs and chart reviewed. Patient complained of chest pain, chest wall tenderness positive. No acute joint pain swelling or rash noted. Pending echo 2D report. Patient was seen by Neurology recommendation reviewed and appreciated. Objective vital signs Vital Sign Date Time Temp Pulse Resp B/P (MAP) Pulse Ox O2 Delivery O2 Flow Rate FiO2 08/23/24 09:30 86 14 126/78 (94) 96 08/23/24 07:30 Room Air* 0 21 08/23/24 00:45 97.6 97.6 medications Current Medications Medications Dose Ordered Sig/Emily Route Start Time Stop Time Status Last Admin Dose Admin Nitroglycerin 0.4 mg Q5MINP PRN SL 08/22/24 21:30 Morphine Sulfate 2 mg Q30M PRN IV 08/22/24 21:30 Albuterol 2.5 mg Q8HPRN PRN NEB 08/22/24 21:30 08/23/24 07:08 2.5 MG Ipratropium [place] 0.5 mg Q8HPRN PRN NEB 08/22/24 21:30 08/23/24 07:08 0.5 MG Levetiracetam 500 mg BID PO 08/22/24 22:00 08/22/24 23:26 500 MG Methylprednisolone Sodium Succinate 40 mg BID IV 08/22/24 22:00 08/23/24 00:22 40 MG Lorazepam 1 mg Q5MINP PRN IV 08/22/24 22:30 Lorazepam 0.5 mg Q12HP PRN PO 08/22/24 23:45 08/22/24 23:57 0.5 MG Acetaminophen 650 mg Q4HP PRN PO 08/23/24 00:15 Morphine Sulfate 1 mg Q4HP PRN IV 08/23/24 04:15 08/23/24 05:51 1 MG Acetaminophen/ Hydrocodone Bitart 1 tab Q4HP PRN PO 08/23/24 06:45 08/23/24 07:00 1 TAB Examination General examination- awake alert, oriented, conversant HEENT- PEERLA, no acute nasal discharge Cardiovascular- S1-S2 audible, rate and rhythm regular, no murmur Respiratory- + bilateral basilar lung crackles+, chest wall tenderness++ Gastrointestinal-nontender, bowel sound+. Nondistended Musculoskeletal-no acute joint swelling or tenderness or redness# Lower extremity- no leg edema Neurological- cranial nerves intact, no acute dysarthria or dysphagia Psychiatry- denies depression or SI or HI Skin- no acute rash or purpura laboratory and microbiology Laboratory Tests 08/23/24 05:05 Test 08/23/24 05:05 Range/Units Serum Glucose 128 H 74-106 mg/dL Problem List/Assessment/Plan Problem List/Assessment/Plan Acute chest pain, rule out acute coronary syndrome Mechanical fall CAD, status post PTCA History of CHF COPD, no acute exacerbation History of stroke seizure disorder Anxiety, depression Status post colostomy reversal History of diverticulitis Obesity CT scan negative for acute intracranial hemorrhage or infarction Chest x-ray mild lower lung congestion X-ray knee negative for fracture X-ray recent negative for fracture Plan Continue aspirin 81 mg p.o. daily Continue atorvastatin Continue nebulization as prescribed Continue Keppra 500 mg p.o. b.i.d. Lorazepam p.r.n. as prescribed Continue pain medication as prescribed Goals of care/advance care planning; FULL CODE; discussed with the patient >15 minutes PUD prophylaxis: Pantoprazole DVT prophylaxis: Lovenox Plan discussed with Dr. Cid , nursing staff, patient Total time spent on patient evaluation, chart review, assessment and plan, discussion discussion >35 minutes Plan discussed with: Patient Plan discussed with: Patient (nephew, RN), Other (Nephew, RN) Date of Service: Aug 23, 2024 Billing Provider: GERARD PEREZ MD Common Visit Codes: [id number] INP/OBS CARE(HIGH) MARISSA RANDOLPH RESIDENT Aug 23, 2024 09:58 GERARD PEREZ MD Aug 27, 2024 01:45
[2024-08-23 10:51] LABS: Triglycerides 97 mg/dL (< 150)
[2024-08-23 10:53] LABS: HDL Cholesterol 57 mg/dL (40-59)
[2024-08-23 10:55] LABS: Cholesterol 201 mg/dL (< 200); LDL Cholesterol 124 mg/dL (< 100)
--- NOTE | 2024-08-23 13:13 | DVHSR ---
APPROVED REPORT EXAM: LIMITED Two-dimensional and M-mode echocardiogram with Doppler and color Doppler. Blood Pressure: 113/68 mmHg INDICATION Rule Out CHF RISK FACTORS Obesity: Height: 5' 7", Weight: 240 DIMENSIONS LVDd3.9 (3.8-5.7cm)LA (2D)4.3 (1.9-4.0cm)Aortic Root3.5 (2.0-3.7cm) LVDs2.6 (2.5-4.0cm)LA (MM) (1.9-4.0cm)Aortic Cusp Exc1.9 (1.5-2.0cm) EF (%) 60.0 (55-70%)Rt. Atrium4.0 (1.9-4.0cm)Asc. Aorta cm IVSd1.3 (0.7-1.1cm)RV (D) (1.8-2.4cm) PWd1.3 (0.7-1.1cm) Mitral Valve MitralMitral Stenosis E wave0.90m/sMV Mean GR.mmHg A wave1.00m/sMV Peak GR.mmHg E/A ratio0.92D MVAcm2 Aortic Valve Aortic ValveAortic Stenosis V11.10m/[place] Mean GR.5mmHg V21.50m/[place] Peak GR.9mmHg LVOT Diameter2.3 (1.8-2.4cm)Doppler AVA3.05cm2 Other Information Quality : Technically LimitedRhythm : Technically limited study due to body habitus. Conclusion lvef 65 % byvisual estimate moderate LVH normal rv function left atrium enlarged no severe valve abnormalities noted
--- NOTE | 2024-08-23 13:37 | ECG ---
[facility] Test Date: 2024-08-22 Test Time: 13:19:19 Pat Name: JOE GARRISON Department: ER Room: 0249T Gender: F Financial Systems Director: ZAKI : 1955 Requested By: JOSE JUAN RAYGOZA Order Number: [id number] Reading MD: García Avalos Measurements Intervals [place] Rate: 104 P: -71 [place]: 188 QRS: -20 QRSD: 83 T: 74 QT: 341 QTc: 449 Interpretive Statements Sinus or ectopic atrial tachycardia Borderline left axis deviation Low voltage, precordial leads Consider anterior infarct Electronically Signed On 08-25-2024 17:53:08 PST by García Avalos Please click the below link to view image of tracing.
[2024-08-23] MEDS: PROCHLORPERAZINE EDISYLATE 5 MG/ML 2ML VIAL IV ONE (14:00)
[2024-08-23] MEDS: ASPirin-EC 81 mg tab PO SCH (15:10)
[2024-08-23] MEDS: ENOXAPARIN SOD 40 MG/0.4 ML SYRINGE SC ONE (15:11)
[2024-08-23] MEDS: PANTOPRAZOLE 40 MG/10 ML VIAL INJ IV ONE (15:11)
[2024-08-24] VITALS (10 sets, daily range): BP systolic 110–136; BP diastolic 53–78; PULSE 64–73; RESP 16–20; TEMP 97.4–98.2; O2SAT 93–100
[2024-08-24] MEDS: ATORVASTATIN 20 MG TAB PO SCH (00:11)
[2024-08-24] MEDS: ONDANSETRON HCL 4 MG/2 ML VIAL IV PRN (06:40)
[2024-08-24 07:36] LABS: Basophils # (auto) 0 10 ^3/uL (0-0.2); Basophils % (auto) 0.1 % (0.0-2.0); Eosinophils # (auto) 0 10 ^3/uL (0-0.8); Eosinophils % (auto) 0.3 % (0.0-7.0); Hematocrit 43.8 % (36.0-46.0); Hemoglobin 13.7 g/dL (12.2-16.2); Lymphocytes # (auto) 1.9 10 ^3/uL (0.4-5.4); Lymphocytes % (auto) 14.1 % (10.0-50.0); Mean Corpuscular Hemoglobin 31.6 pg (28.0-32.0); Mean Corpuscular Hgb Conc. 31.4 g/dL (32.0-36.0); Mean Corpuscular Volume 100.7 fL (80.0-100.0); Monocytes % (auto) 7.5 % (0.0-12.0); Neutrophils # (auto) 10.8 10 ^3/uL (1.6-8.6); Platelet Count (auto) 115 10^3/uL (140-450); Red Blood Cells 4.35 10^6/uL (4.0-5.20); Red Cell Distribution Width 14.5 % (11.8-14.3); White Blood Cell 13.8 10^3/uL (4.4-10.8)
[2024-08-24 07:39] LABS: Sodium 140 mmol/L (136-145)
[2024-08-24 07:40] LABS: Anion Gap 5 (5-15); Carbon Dioxide 24 mmol/L (20-31)
[2024-08-24 07:42] LABS: Chloride 111 mmol/L (98-107)
[2024-08-24 07:45] LABS: BUN/Creatinine Ratio 25.6 (10.0-20.0); Blood Urea Nitrogen 22 mg/dL (9-23)
[2024-08-24 07:46] LABS: Glucose 112 mg/dL (74-106)
[2024-08-24] MEDS: ENOXAPARIN SOD 40 MG/0.4 ML SYRINGE SC SCH (11:43)
[2024-08-24] MEDS: PANTOPRAZOLE 40 MG/10 ML VIAL INJ IV SCH (11:43)
[2024-08-24] MEDS: IBUPROFEN 600 MG TAB PO ONE (13:34)
[2024-08-24] MEDS ORDERED: BACL5TAB2 PO (14:18)
[2024-08-24] MEDS ORDERED: FURO1TAB31 PO (14:21)
[2024-08-24] MEDS ORDERED: LOSA-534 PO (14:23)
[2024-08-24] MEDS ORDERED: LOSA-535 PO (14:30)
--- NOTE | 2024-08-24 16:04 | DVHDSRES ---
Discharge Summary Date of Admission Resident Creating Document: MARISSA RANDOLPH RESIDENT Aug 22, 2024 at 21:23 Date of Discharge: Aug 24, 2024 Admitting Diagnosis Acute chest pain Mechanical fall with subsequent loss of consciousness Labs/Diagnostic Data: Laboratory Results Test 08/24/24 07:01 08/23/24 05:05 08/23/24 00:51 08/22/24 17:05 White Blood Count 13.8 10^3/uL (4.4-10.8) Red Blood Count 4.35 10^6/uL (4.0-5.20) Hemoglobin 13.7 g/dL (12.2-16.2) Hematocrit 43.8 % (36.0-46.0) Mean Corpuscular Volume 100.7 fL (80.0-100.0) Mean Corpuscular Hemoglobin 31.6 pg (28.0-32.0) Mean Corpuscular Hemoglobin Concent 31.4 g/dL (32.0-36.0) Red Cell Distribution Width 14.5 % (11.8-14.3) Platelet Count 115 10^3/uL (140-450) Mean Platelet Volume 8.8 fL (6.9-10.8) Neutrophils (%) (Auto) 78.0 % (37.0-80.0) Lymphocytes (%) (Auto) 14.1 % (10.0-50.0) Monocytes (%) (Auto) 7.5 % (0.0-12.0) Eosinophils (%) (Auto) 0.3 % (0.0-7.0) Basophils (%) (Auto) 0.1 % (0.0-2.0) Neutrophils # (Auto) 10.8 10 ^3/uL (1.6-8.6) Lymphocytes # (Auto) 1.9 10 ^3/uL (0.4-5.4) Monocytes # (Auto) 1.0 10 ^3/uL (0-1.3) Eosinophils # (Auto) 0 10 ^3/uL (0-0.8) Basophils # (Auto) 0 10 ^3/uL (0-0.2) Nucleated Red Blood Cells 0.0 % Sodium Level 140 mmol/L (136-145) Potassium Level 5.0 mmol/L (3.5-5.1) Chloride Level 111 mmol/L (98-107) Carbon Dioxide Level 24 mmol/L (20-31) Anion Gap 5 (5-15) Blood Urea Nitrogen 22 mg/dL (9-23) Creatinine 0.86 mg/dL (0.550-1.02) Glomerular Filtration Rate Calc 73 mL/min (>90) BUN/Creatinine Ratio 25.6 (10.0-20.0) Serum Glucose 112 mg/dL (74-106) Calcium Level 10.0 mg/dL (8.7-10.4) Total Bilirubin 0.6 mg/dL (0.2-1.0) Aspartate Amino Transferase (AST) 12 U/L (13-40) Alanine Aminotransferase (ALT) 14 U/L (7-40) Alkaline Phosphatase 110 U/L (46-116) Total Protein 7.2 g/dL (5.7-8.2) Albumin 4.5 g/dL (3.2-4.8) Triglycerides Level 97 mg/dL (< 150) Cholesterol Level 201 mg/dL (< 200) LDL Cholesterol 124 mg/dL (< 100) HDL Cholesterol 57 mg/dL (40-59) POC Glucose 113 mg/dl (70-106) Urine Color Light-yellow (Yellow) Urine Clarity Turbid (Clear) Urine pH 5.5 (5.0-9.0) Urine Specific [place] 1.023 (1.001-1.035) Urine Protein Negative (Negative) Urine Ketones Negative (Negative) Urine Blood Negative /uL (Negative) Urine Nitrite Negative (Negative) Urine Bilirubin Negative (Negative) Urine Urobilinogen Normal mg/dL (Negative) Urine Leukocyte Esterase Negative /uL (Negative) Urine RBC 2 /hpf (0 - 4) Urine Microscopic WBC 2 /HPF (0-5) Urine Squamous Epithelial Cells Few /hpf (<5) Urine Bacteria None seen /hpf (None Seen) Urine Mucus Few (None Seen) Urine Glucose Normal mg/dL (Normal) Test 08/22/24 13:55 Erythrocyte Sedimentation Rate 20 mm/hr (0-20) Troponin I High Sensitivity < 3 ng/L (</=34) C-Reactive Protein High Sensitivity 1.45 mg/dL (<1.0) B-Type Natriuretic Peptide 20.48 pg/mL (0-100) Other Laboratory Tests 08/24/24 07:01 Brief Hx & Hospital Course: HPI-Patient is 69 years old female with past medical history of coronary artery disease, status post PTCA, hypertension, congestive heart failure, COPD, CVA, seizure disorder(last seizure 4 month before, anxiety, depression, history of diverticulitis, status post colostomy reversal presents to the ER after she had a fall at [facility]. As per patient she had a fall after she missed a step on the stair and fell on her chest, denied hitting head or loss of consciousness. Nephew was at the bedside , patient was Witness during fall and mentioned patient never lost consciousness. Patient reported she fell on her chest and knee and started having chest pain after she fell, 9 to 10/10, sharp pain, increased with breathing. Patient endorsed some cough with thick whitish mucus sputum for last couple of days. Initial lab workup negative for trop I, BNP 20.48, cholesterol 201, LDL 124. EKG no acute ST or T-wave changes. CXR revealed mild pulmonary vascular congestion, CT head negative for intracranial abnormality, x-ray right knee no acute fracture or dislocation noted, CT abdomen pelvis revealed -Stable left adrenal nodule 1.1 cm,. Stable 1.7 cm circumscribed cystic appearing lesion in the pancreatic head. X-ray reviewed negative for acute fracture or displacement. Echo 2D-LVEF- 65. moderate LVH. left atrium enlarged Hospital course-Patient is 69 years old female with past medical history of coronary artery disease, status post PTCA, hypertension, congestive heart failure, COPD, CVA, seizure disorder(last seizure 4 month before, anxiety, depression, history of diverticulitis, status post colostomy reversal presents to the ER after she had a fall at [facility]. As per patient she had a fall after she missed a step on the stair and fell on her chest, denied hitting head or loss of consciousness. Nephew was at the bedside , patient was Witness during fall and mentioned patient never lost consciousness. Patient reported she fell on her chest and knee and started having chest pain after she fell, 9 to 10/10, sharp pain, increased with breathing. Patient endorsed some cough with thick whitish mucus sputum for last couple of days. Initial lab workup negative for trop I, BNP 20.48, cholesterol 201, LDL 124. EKG no acute ST or T- wave changes. CXR revealed mild pulmonary vascular congestion, CT head negative for intracranial abnormality, x-ray right knee no acute fracture or dislocation noted, CT abdomen pelvis revealed -Stable left adrenal nodule 1.1 cm,. Stable 1.7 cm circumscribed cystic appearing lesion in the pancreatic head. X-ray reviewed negative for acute fracture or displacement. Echo 2D-LVEF- 65. moderate LVH. left atrium enlarged. Patient had chest wall tenderness on physical examination. Patient's symptom improved gradually. No acute shortness of breath cardiac arrhythmia noted. Being discharged home in hemodynamically stable condition. Patient was advised to follow up with the primary care physician in 1 week. Patient was also advised to follow up with her kitchen chef in 1-2 weeks. Patient was discharged with the baclofen 5 mg q.h.s. p.r.n. for 5 days. Patient's meds were sent to the pharmacy electronically. Patient's vitals were stable on discharge. Diagnosis- Acute chest pain likely musculoskeletal due to trauma to the chest following a mechanical fall rule out acute coronary syndrome Mechanical fall, no loss of consciousness Musculoskeletal chest pain No fracture CAD, status post PTCA History of CHF COPD, no acute exacerbation History of stroke seizure disorder Anxiety, depression Status post colostomy reversal History of diverticulitis Obesity Discharge pain Baclofen 5 mg p.o. q.h.s. p.r.n. for 5 days Please resume home medications Please follow up with with your primary care physician in 1 week Please follow up with the kitchen chef in 1-2 weeks Please be compliant with the medications Operations or Procedures [place] [id number] Ph: [phone] DIAGNOSTIC IMAGING Diagnostic Imaging Report : [id number] Signed PATIENT: JOE GARRISON ACCT: [id number] UNIT: [id number] : 1955 LOC: OVERFLOW ROOM / BED: 1009-ERT / A AGE / SEX: 69 / F ADM STATUS: ADM IN SERVICE 0424 ORDERING PHYSICIAN: DANELLE LUIS RESIDENT PROCEDURE(s): RIBBI - RIBS BILATERAL REASON: wall chest pain ORDER NUMBER(s): [id number], ACCESSION NUMBER(s): [id number] EXAMINATION: XY RIBS BILATERAL INDICATION: wall chest pain COMPARISON: None TECHNIQUE: Frontal view of the chest and 5 views of the bilateral ribs history FINDINGS: No focal consolidation, pleural effusion or significant pneumothorax. Normal cardiomediastinal silhouette. No displaced bilateral rib fracture. IMPRESSION: No acute cardiopulmonary disease. No displaced bilateral rib fracture. ATED BY: JD PAZ MD DICTATED DATE/TIME: 08/23/24914 SIGNED BY: JD PAZ MD SIGNED DATE/TIME: 08/23/24914 CC: [place] [id number] Ph: [phone] DIAGNOSTIC IMAGING Diagnostic Imaging Report : [id number] Signed PATIENT: JOE GARRISON ACCT: [id number] UNIT: [id number] : 1955 LOC: OVERFLOW ROOM / BED: [address] [place] [address] AGE / SEX: 69 / F ADM STATUS: ADM IN SERVICE 40 ORDERING PHYSICIAN: DANELLE LUIS RESIDENT PROCEDURE(s): CTCAP - CHST AB PEL WO CON-NO IV/ORAL REASON: TRAUMA FALL ORDER NUMBER(s): [id number], ACCESSION NUMBER(s): [id number] EXAM: CT CHST AB PEL WO CON-NO IV/ORAL HISTORY: TRAUMA FALL COMPARISON: CT CT AB PEL WO CON-NO ORAL OR IV on DOS: 03/26/24, CT CT AB PEL WO CON-NO ORAL OR IV on DOS: 12/26/23, CT CHST AB PEL WO CON-NO IV/ORAL on DOS: 11/01/22 TECHNIQUE: Helical CT images of the chest, abdomen, and pelvis were performed without IV contrast. Sagittal and coronal reformatted images were obtained. This CT exam was performed using one or more of the following dose reduction techniques: Automated exposure control, adjustment of the mA and/or kv according to patient size, or the use of iterative reconstruction techniques. Radiation Dose Information: CT Dose: CTDI volume is 25.9 mGy. Dose-length product is 1928.2 mGy*cm FINDINGS: The airway appears patent. No significant mediastinal or hilar adenopathy. No pericardial or pleural effusion. No pneumothorax. Linear subsegmental atelectasis. Hypodensities within the liver likely represent cysts. The gallbladder, spleen and right adrenal gland appear unremarkable. Stable 1.1 cm left adrenal nodule. Stable 1.7 cm cystic appearing lesion in the pancreatic head. The kidneys appear mildly lobulated without hydronephrosis. 1.4 cm stable left renal cyst. No evidence of bowel obstruction or focal bowel wall thickening. The appendix appears normal. No free fluid, free air, or adenopathy. Postsurgical changes of the ventral abdomen. No discrete osseous fracture. IMPRESSION: 1. No acute findings. 2. Stable left adrenal nodule 3. Stable 1.7 cm circumscribed cystic appearing lesion in the pancreatic head. Nonemergent MRI pancreatic protocol is recommended. HS:Y ATED BY: OLGA BRENNER MD DICTATED DATE/TIME: 08/23/24302 SIGNED BY: OLGA BRENNER MD SIGNED DATE/TIME: 08/23/24302 CC: [place] [id number] Ph: [phone] DIAGNOSTIC IMAGING Diagnostic Imaging Report : [id number] Signed PATIENT: JOE GARRISON ACCT: [id number] UNIT: [id number] : 1955 LOC: OVERFLOW ROOM / BED: [address] [place] [address] AGE / SEX: 69 / F ADM STATUS: ADM IN SERVICE 22 ORDERING PHYSICIAN: DANELLE LUIS RESIDENT PROCEDURE(s): RKN3 - R KNEE 3V XRAY REASON: trauma ORDER NUMBER(s): [id number], ACCESSION NUMBER(s): [id number] CLINICAL INDICATION: trauma TECHNIQUE: 3 radiographic views of the right knee were obtained. Comparison: None FINDINGS/IMPRESSION: There is no evidence of acute fracture or dislocation. There is narrowing of the medial compartment of the right knee and patellofemoral joint The alignment is anatomical. There is no radiopaque foreign body. ATED BY: KIMBERLY ROCHA Jr., DO DICTATED DATE/TIME: 08/22/242209 SIGNED BY: KIMBERLY ROCHA Jr., DO SIGNED DATE/TIME: 08/22/242209 CC: [place] [id number] Ph: [phone] DIAGNOSTIC IMAGING Diagnostic Imaging Report : [id number] Signed PATIENT: JOE GARRISON ACCT: [id number] UNIT: [id number] : 1955 LOC: ER ROOM / BED: / AGE / SEX: 69 / F ADM STATUS: REG ER SERVICE 33 ORDERING PHYSICIAN: DANELLE LUIS PROCEDURE(s): HWOCT - HEAD WITHOUT CONTRAST REASON: fall ORDER NUMBER(s): [id number], ACCESSION NUMBER(s): [id number] CT HEAD WITHOUT CONTRAST INDICATION: fall COMPARISON: CT HEAD WITHOUT CONTRAST on DOS: 08/22/23, CT HEAD WITHOUT CONTRAST on DOS: 10/27/22 TECHNIQUE: CT of the head without intravenous contrast. RADIATION DOSE: CTDIvol: mGy, DLP: mGy*cm FINDINGS: There is no evidence of intracranial hemorrhage, infarct, extra-axial collection, mass effect, midline shift, herniation or hydrocephalus. The ventricles, sulci and cisterns are normal. The henao-white differentiation is normal. Visualized paranasal sinuses and mastoid air cells are clear. Soft tissues and osseous structures are unremarkable. IMPRESSION: No intracranial abnormality demonstrated. ATED BY: MARK WEBSTER MD DICTATED DATE/TIME: 08/22/242103 SIGNED BY: MARK WEBSTER MD SIGNED DATE/TIME: 08/22/242103 CC: [place] [id number] Ph: [phone] DIAGNOSTIC IMAGING Diagnostic Imaging Report : [id number] Signed PATIENT: JOE GARRISON ACCT: [id number] UNIT: [id number] : 1955 LOC: ER ROOM / BED: / AGE / SEX: 69 / F ADM STATUS: REG ER SERVICE 1323 ORDERING PHYSICIAN: JOSE JUAN RAYGOZA MD PROCEDURE(s): CXRP - CHEST PORTABLE REASON: sob ORDER NUMBER(s): [id number], ACCESSION NUMBER(s): [id number] CHEST RADIOGRAPH Indication: sob Technique: Single frontal view of the chest was obtained COMPARISON: XY CHEST XRAY 1 VIEW on DOS: 12/29/23, XY CHEST PORTABLE on DOS: 12/25/23, XY CHEST PORTABLE on DOS: 11/01/22, XY CHEST PORTABLE on DOS: 10/27/22, CXRP on DOS: 12/09/21 FINDINGS: Lines and Tubes: None Lungs: Mild pulmonary vascular congestion Pleura: No effusion. No pneumothorax. Cardiomediastinal contours: Cardiomegaly Bones: Unremarkable IMPRESSION: Mild pulmonary vascular congestion. ATED BY: MACIEJ SEWELL MD DICTATED DATE/TIME: 08/22/24 134 SIGNED BY: MACIEJ SEWELL MD SIGNED DATE/TIME: 08/22/24 134 CC: Condition at Discharge: Stable Final Diagnosis/Problems List Acute chest pain, likely musculoskeletal from trauma from fall rule out acute coronary syndrome Mechanical fall, no loss of consciousness No fracture CAD, status post PTCA History of CHF COPD, no acute exacerbation History of stroke seizure disorder Anxiety, depression Status post colostomy reversal History of diverticulitis Obesity Discharge Disposition: Home Discharge Instruct/Medications Diet: Cardiac 2g Na,low cholest Activity: Light activity Follow Up/Referral: Please follow up with with your primary care physician in 1 week Please follow up with the kitchen chef in 1-2 weeks Please be compliant with the medications Medications: Please resume home medications Baclofen 5 mg p.o. q.h.s. as needed for 5 days Discharge Statement: "Patient was advised to return to the ER or call 911 if any headaches, dizziness, shortness of breath, chest pain, abdominal pain, bleeding, fevers, or worsening of medical condition. Patient was counseled about treatment plan, medications, possible side effects, patientverbalized understanding. All questions were answered to the best of my ability. This discharge took greater then 30 minutes in planning, reviewing documentation, counseling the patient, and discussing with other team members." ASSESSMENT ASSESSMENT Assessment Acute chest pain, rule out acute coronary syndrome Mechanical fall CAD, status post PTCA History of CHF COPD, no acute exacerbation History of stroke seizure disorder Anxiety, depression Status post colostomy reversal History of diverticulitis Obesity Date of Service: Aug 24, 2024 Billing Provider: GERARD PEREZ MD Common Visit Codes: 87013-RHU/OBS DISCH DAY >30min MARISSA RANDOLPH RESIDENT Aug 24, 2024 16:04 GERARD PEREZ MD Aug 27, 2024 02:33
[2024-08-24] MEDS ORDERED: ATORVASTATIN 20 MG TAB PO SCH (22:00)
[2024-08-24] MEDS ORDERED: LATANOPROST 0.005 % OPTH(EYE) SOL 2.5ML EACHEYE SCH (22:00)
--- NOTE | 2024-08-24 23:59 | DVHEEG2 ---
Neurology EEG Procedural Note Procedural Note EXAM DATE: 08/24/2024 REFERRING DOCTOR: Dr. Kunz TECHNIQUE: Eighteen channels of EEG, 2 channels of EOG, and 1 channel of EKG were recorded using the International 10/20 system. CLINICAL DATA: The patient was referred for an EEG evaluation for the evidence of seizure disorder. MEDICATIONS: See the chart BACKGROUND ACTIVITY: There was significant amount of electrode artifacts in the record. While the patient was awake, the background activity consisted of fairly regulated 9 Hz rhythmic waveforms, symmetrically distributed over both posterior quadrants and was reactive to eye opening. ACTIVATION: Hyperventilation: Not done Photic Stimulation: No photic convulsive response Sleep: Stage I IMPRESSION: This is a normal EEG. No focal, lateralized, or epileptiform features are noted. If clinically indicated to rule out a seizure disorder, recommend repeat EEG with sleep deprivation. The EKG channel showed a regular heart rate of 66/min[place] [address] SHERRY KUNZ MD Aug 24, 2024 23:59
== END 2024-08-24 16:23 | disposition home or self-care (01) | DRG 313 ==
LOC: ER 12:47 → OVERFLOW 21:23 → TELE-EAST 08-23 22:15
PROVIDERS: ADMIT Student in an Organized Health Care Education/Training Program; ATTEND Student in an Organized Health Care Education/Training Program
DX: R07.89 Other chest pain (principal); S06.0X9A Concussion with loss of consciousness of unspecified duration, initial encounter; I24.9 Acute ischemic heart disease, unspecified; S29.8XXA Other specified injuries of thorax, initial encounter; I50.9 Heart failure, unspecified; G40.909 Epilepsy, unspecified, not intractable, without status epilepticus; I25.10 Atherosclerotic heart disease of native coronary artery without angina pectoris; J44.89 Other specified chronic obstructive pulmonary disease; E66.9 Obesity, unspecified; F32.A Depression, unspecified; F17.210 Nicotine dependence, cigarettes, uncomplicated; I11.0 Hypertensive heart disease with heart failure; I25.2 Old myocardial infarction; F41.9 Anxiety disorder, unspecified; Z79.899 Other long term (current) drug therapy; Z90.49 Acquired absence of other specified parts of digestive tract; Z90.710 Acquired absence of both cervix and uterus; Z98.891 History of uterine scar from previous surgery; Z79.82 Long term (current) use of aspirin; Z80.1 Family history of malignant neoplasm of trachea, bronchus and lung; Z82.49 Family history of ischemic heart disease and other diseases of the circulatory system; Z83.3 Family history of diabetes mellitus; Z86.718 Personal history of other venous thrombosis and embolism; Z86.73 Personal history of transient ischemic attack (TIA), and cerebral infarction without residual deficits; Z88.0 Allergy status to penicillin; Z88.3 Allergy status to other anti-infective agents; Z98.61 Coronary angioplasty status; Z68.39 Body mass index [BMI] 39.0-39.9, adult; W18.39XA Other fall on same level, initial encounter; Y93.89 Activity, other specified; Y92.89 Other specified places as the place of occurrence of the external cause; Y99.8 Other external cause status
CPT/HCPCS: 36415; 70450; 71045; 71111; 71250; 73562; 74176; 80048; 80053; 80061; 81001; 82962; 83880; 84484; 85025; 85652; 86141; 93005; 93306; 94640; 95819; 96372; 97163; G0378; J2405; J2470